=== PATIENT | female | born 1935 | race Caucasian/White ===

== ENCOUNTER 2020-06-18 14:53 | Emergency (ER) | payer MEDICARE, SELFPAY ==
--- NOTE | ~2020-06-18 | XR_ITS ---
XR chest 2V DATE: 06/18/2020 17:03 INDICATION: Shortness of breath. History of asthma. Hypertension. TECHNIQUE: PA and lateral views COMPARISON: 08/14/2019 PA and lateral chest FINDINGS: Normal heart size. Aortic calcification, ectasia and unfolding. No hilar or mediastinal enlargement. Moderate bilateral hyperinflation. No pulmonary infiltrate or consolidation, pleural effusion or pulm onary vascular congestion or pneumothorax is detected. 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 Right glenohumeral joint replacement. Prominent osteopenia. Dextroscoliosis and degenerative change of the thoracic spine. 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 TUTOR
[2020-06-18 15:20] VITALS: BP 121/54; PULSE 90; RESP 16; TEMP 36.9; O2SAT 97
--- NOTE | 2020-06-18 15:29 | ECG_ITS ---
Measurements Intervals [place] Rate: 73 P: -14 MS: 144 QRS: -13 QRSD: 79 T: 16 QT: 377 QTc: 416 Interpretive Statements SINUS RHYTHM VENTRICULAR PREMATURE COMPLEXES VOLTAGE CRITERIA FOR LVH BORDERLINE ST ABNORMALITY- ANTEROLATERAL LEADS BORDERLINE ECG Electronically Signed On 06-18-2020 17:17:40 SWIMMING PROFESSOR by Ravinder Ortiz D.O.
[2020-06-18 15:54] LABS: Basophils Percent Auto 0.4 % (0.2-1.2); Eosinophils Absolute Auto 0.2 K/mm3 (0-0.3); Eosinophils Percent Auto 1.5 % (0-4.4); Hematocrit 43.3 % (37.0-47.0); Hemoglobin 14.1 g/dL (12.0-15.0); Immature Granulocyte Absolute 0.04 K/mm3 (0.00-0.031); Immature Granulocyte Percent A 0.4 % (0-0.5); Lymphocytes Absolute Auto 1.27 K/mm3 (0.9-3.2); Lymphocytes Percent Auto 12.3 % (18.3-44.2); Mean Corpuscular HGB Conc 32.6 g/dl (32-36); Mean Corpuscular Hemoglobin 29.6 pg (26-34); Mean Platelet Volume 11.1 fl (7.4-10.4); Monocytes Absolute Auto 0.6 K/mm3 (0.1-0.6); Monocytes Percent Auto 5.7 % (2.6-8.5); Neutrophils Absolute Auto 8.2 K/mm3 (1.3-6.7); Neutrophils Percent Auto 79.7 % (45.5-73.1); Platelet Count Result 215 k/mm3 (150-375); Red Blood Count 4.76 M/mm3 (4.2-5.4); Red Cell Distribution Width 13.1 % (11.5-14.5); White Blood Count 10.3 K/mm3 (4.5-10.0)
[2020-06-18 16:05] LABS: Anion Gap 6 mmol/L (8-16); Blood Urea Nitrogen 19 mg/dL (7-17); Calcium 8.9 mg/dL (8.4-10.2); Carbon Dioxide 30 mmol/L (22-30); Chloride 104 mmol/L (98-107); Estimated CRCL calculation 46 ml/min; Estimated Glomerular Filt Rate > 60; Glucose 125 mg/dL (65-105); Potassium 3.7 mmol/L (3.4-5.0); Sodium 140 mmol/L (137-145)
[2020-06-18 19:50] VITALS: BP 139/66; PULSE 72; RESP 14; O2SAT 99
[2020-06-18 19:56] VITALS: PULSE 63
--- NOTE | 2020-06-18 19:56 | ED.URI ---
HPI - URI/Sore Throat General Chief Complaint: Shortness of Breath/Dyspnea Stated Complaint: TX FOR PNEUMONIA, COUGH, CONGESTION Time Seen by Provider: 06/18/20 19:45 Source: patient Mode of arrival: ambulatory Limitations: no limitations History of Present Illness HPI Narrative: Patient is an 85-year-old female complaining of cough, productive, yellowish sputum started last month after being diagnosed with pneumonia approximately a month ago. Patient also complaining of shortness of breath but states that it is nothing new she has had it years . Patient also complaining of left chest wall pain, intermittent, worse with palpation, had it for years I have seen Dr. House and told me that my heart was ok . Patient denies any fever, abdominal pain, nausea vomiting or diarrhea. Related Data Home Medications Medication Instructions Recorded Confirmed aspirin 81 mg tablet,delayed 81 mg PO DAILY 07/10/19 03/25/20 release flaxseed oil 1,000 mg capsule 1,000 mg PO DAILY 07/10/19 03/25/20 rosuvastatin 5 mg tablet 5 mg PO DAILY 07/10/19 03/25/20 alendronate PO 03/25/20 03/25/20 azelastine NASAL 03/25/20 03/25/20 cholecalciferol (vitamin D3) 50 50 mcg PO DAILY 03/25/20 03/25/20 mcg (2,000 unit) capsule Allergies Allergy/AdvReac Type Severity Reaction Status Date / Time acetaminophen Allergy Unknown rash Verified 06/18/20 19:57 adhesive Allergy Unknown unknown Verified 06/18/20 19:57 alendronate sodium Allergy Unknown unknown Verified 06/18/20 19:57 amitriptyline Allergy Unknown unknown Verified 06/18/20 19:57 bupropion Allergy Unknown unknown Verified 06/18/20 19:57 chlordiazepoxide Allergy Unknown unknown Verified 06/18/20 19:57 diazepam Allergy Unknown unknown Verified 06/18/20 19:57 diphenhydramine Allergy Unknown unknown Verified 06/18/20 19:57 flurbiprofen Allergy Unknown unknown Verified 06/18/20 19:57 hydrocodone Allergy Unknown unknown Verified 06/18/20 19:57 ibuprofen Allergy Unknown unknown Verified 06/18/20 19:57 lansoprazole Allergy Unknown unknown Verified 06/18/20 19:57 lorazepam Allergy Unknown unknown Verified 06/18/20 19:57 methotrexate Allergy Unknown unknown Verified 06/18/20 19:57 morphine Allergy Unknown unknown Verified 06/18/20 19:57 nizatidine Allergy Unknown unknown Verified 06/18/20 19:57 NSAIDS (Non-Steroidal Allergy Unknown unknown Verified 06/18/20 19:57 Anti-Inflamma Penicillins Allergy Unknown unknown Verified 06/18/20 19:57 perphenazine Allergy Unknown unknown Verified 06/18/20 19:57 propoxyphene Allergy Unknown unknown Verified 06/18/20 19:57 ranitidine Allergy Unknown unknown Verified 06/18/20 19:57 Sulfa (Sulfonamide Allergy Unknown unknown Verified 06/18/20 19:57 Antibiotics) tamoxifen Allergy Unknown unknown Verified 06/18/20 19:57 tetracycline Allergy Unknown unknown Verified 06/18/20 19:57 Tetracyclines Allergy Unknown unknown Verified 06/18/20 19:57 tizanidine Allergy Unknown unknown Verified 06/18/20 19:57 tramadol Allergy Unknown unknown Verified 06/18/20 19:57 adhesive tape AdvReac Unknown TAPE/ Verified 06/18/20 19:57 BANDAIDS Review of Systems Review of Systems: All systems reviewed & are unremarkable except as noted in HPI and below Constitutional: Constitutional: Denies body ache(s), Denies chills, Denies excessive sweating, Denies fatigue, Denies fever(s), Denies headache(s), Denies lethargy, Denies malaise, Denies weakness and Denies weight loss Eyes: Eyes: Denies blurry vision, Denies change in vision and Denies loss of vision ENT: Denies dizziness, Denies ear discharge, Denies headache(s), Denies lip swelling, Denies epistaxis, Denies nasal congestion, Denies neck pain, Denies throat swelling and Denies tongue swelling Cardiovascular: Cardiovascular: Denies chest pain with activity, Denies diaphoresis, Denies rapid heart rate, Denies edema, Denies irregular heart rhythm, Denies lightheadedness and Denies palpitations Respiratory: Respiratory: Denies chest con
[2020-06-18 20:48] VITALS: BP 107/71; PULSE 68; RESP 22; O2SAT 96
[2020-06-18 20:59] LABS: NT Pro B Type Natriuretic Pept 198 PG/ML (5-100); Troponin I < 0.012 ng/mL (0.000-0.034)
[2020-06-18 22:03] VITALS: BP 123/91; PULSE 68; RESP 16; TEMP 36.5; O2SAT 100
== END 2020-06-18 22:05 ==
PROVIDERS: Emergency Medicine; Emergency Provider Emergency Medicine; PCP Emergency Medicine
DX: J40 Bronchitis, not specified as acute or chronic (principal); M19.90 Unspecified osteoarthritis, unspecified site; F32.9 Major depressive disorder, single episode, unspecified; J43.9 Emphysema, unspecified; E78.5 Hyperlipidemia, unspecified; I10 Essential (primary) hypertension
CPT/HCPCS: 36415; 71046; 80048; 83880; 84484; 85025; 93005; 99284

== ENCOUNTER 2021-02-17 10:07 | Outpatient (CLI) | payer MEDICARE, SELFPAY ==
--- NOTE | ~2021-02-17 | CT_ITS ---
EXAMINATION: CT diagnostic chest wo con EXAM DATE: 02/17/2021 10:33 INDICATION: J84.9 - Interstitial pulmonary disease, unspecified. TECHNIQUE: Spiral CT of the chest without contrast. Axial, coronal and sagittal images of the chest were reviewed. Coronal maximum intensity pixel images of chest reviewed. The dose-length product ( DLP) for this examination was 191.45 mGy-cm. The exposure was tailored according to patient size (au to mA exposure control), and iterative reconstruction (ASIR) was used as additional dose reduction te chnique. Comparison is made to prior examination from 06/17/2017. FINDINGS: Some scattered small opacities, postinfectious residua. Mild peripheral interlobular septa l thickening, consistent with Nonspecific Interstitial Pneumonitis Pattern (NSIP) interstitial lung d isease with many possible underlying etiologies including collagen vascular disease, medications/drug s, prior viral infection (COVID-19), hypersensitivity pneumonitis, idiopathic etiologies. Probably sl ight progression in this compared to 2017. Mild emphysema and hyperinflation. There are no pleural or pericardial effusions. Tracheobronchial tree is patent. Surgical changes from left mastoidectomy. There is no mediastinal, hilar or axillary lymphadenopathy. There is no pneumothorax. Heart normal in size. There are dense coronary arter ies, could be severe coronary arterial sclerosis and/or coronary artery stent(s), which are difficult to distinguish due to cardiac motion on this non-gated exam. Pneumobilia unchanged, common finding post cholecystectomy. There is moderate thoracic spondylosis without osteoblastic or osteolytic lesi ons identified. IMPRESSION: 1. Mild NSIP pattern interstitial lung disease. 2. Mild emphysema and hyperinflation. 3. Chronic pneumobilia. Reviewed, dictated and finalized at location A.
== END 2021-02-17 10:08 | disposition home or self-care (01) ==
PROVIDERS: PCP Emergency Medicine; Visit Provider Nurse Practitioner Family
DX: J84.9 Interstitial pulmonary disease, unspecified (principal); J43.9 Emphysema, unspecified; R91.8 Other nonspecific abnormal finding of lung field; K83.9 Disease of biliary tract, unspecified
CPT/HCPCS: 71250

== ENCOUNTER 2021-04-16 10:35 | Outpatient (NON) | payer MEDICARE, SELFPAY | END 2021-04-16 10:36 | disposition home or self-care (01) | LOC: ANHLAB 10:38 | PROVIDERS: PCP Emergency Medicine; Visit Provider Nurse Practitioner Family | DX: R09.3 Abnormal sputum (principal) | CPT/HCPCS: 87070; 87205 ==

== ENCOUNTER 2021-04-29 13:08 | Outpatient (NON) | payer MEDICARE, SELFPAY | END 2021-04-29 13:09 | disposition home or self-care (01) | LOC: ANHLAB 13:10 | PROVIDERS: PCP Emergency Medicine; Visit Provider Nurse Practitioner Family | DX: R09.3 Abnormal sputum (principal) | CPT/HCPCS: 87070; 87205 ==

== ENCOUNTER 2022-06-19 13:07 | Emergency (ER) | payer MEDICARE, SELFPAY ==
--- NOTE | ~2022-06-19 | CT_ITS ---
EXAMINATION: CT brain wo con INDICATION: Head injury COMPARISON: None TECHNIQUE: Standard unenhanced head CT. The dose-length product (DLP) was 605.33 mGy-cm. The mA was a djusted according to patient size. Iterative reconstruction technique was employed. FINDINGS: There is no acute intraparenchymal hemorrhage. No evidence of mass lesion. No evidence of a cute infarction. There is mild periventricular and subcortical hypodensity probably related to small vessel ischemic disease. There is mild prominence of the sulci and ventricles related to cerebral atr ophy. Intracranial calcified cerebral atherosclerosis is noted. There are no extra-axial collections. There is no mass effect or midline shift. Changes in the globes are likely from ocular lens surgery. There is mild mucosal thickening of the paranasal sinuses. IMPRESSION: 1. No acute intracranial abnormality. 2. Age related findings. Reviewed, dictated and finalized at location A. SITIONS MANAGER
--- NOTE | ~2022-06-19 | XR_ITS ---
EXAMINATION: XR chest 2V DATE: 06/19/2022 14:10 INDICATION: Confusion and dizziness TECHNIQUE: AP and lateral views of the chest are obtained. COMPARISON: 06/18/2020 FINDINGS: There are patchy bilateral airspace opacities of the lungs. The heart size is normal for te chnique. No pleural effusion or pneumothorax. Changes of right shoulder arthroplasty are noted. There is severe thoracic spondylosis. There are surgical clips in the right axilla. Advanced osteoarthriti s is noted in the left glenohumeral joint. IMPRESSION: 1. Diffuse lung disease which could reflect atelectasis versus pulmonary edema versus pneumonia. Reviewed, dictated and finalized at location A. TY FELONY CLERK
--- NOTE | ~2022-06-19 | CT_ITS ---
EXAMINATION: CT cervical spine wo con DATE: 06/19/2022 14:03 INDICATION: Head injury TECHNIQUE: Computed tomography (CT) of the cervical spine was performed without intravenous contrast. The dose-length product (DLP) was 276.06 mGy-cm. Automated exposure control and iterative reconstruc tion technique were employed. COMPARISON: None FINDINGS: There are 2 mm of anterolisthesis of C2 on C3 and C3 on C4. The vertebral body heights are maintained. There is severe loss of intervertebral disc space height from C3-4 through C7-T1. Small d egenerative osteophytes project from the anterior endplates of multiple vertebral bodies. The odontoi d is intact. There is multilevel severe facet and uncovertebral joint osteoarthritis. Changes of righ t shoulder arthroplasty are noted. IMPRESSION: 1. Severe cervical spondylosis without acute findings. Reviewed, dictated and finalized at location A. H POLISHER
[2022-06-19 13:08] VITALS: BP 109/86; PULSE 68; RESP 19; TEMP 37.1; O2SAT 99
--- NOTE | 2022-06-19 13:10 | ECG_ITS ---
Measurements Intervals [place] Rate: 62 P: -1 CO: 174 QRS: -13 QRSD: 81 T: 7 QT: 402 QTc: 409 Interpretive Statements SINUS RHYTHM DELAYED PRECORDIAL R/S TRANSITION LEFT VENTRICULAR HYPERTROPHY BORDERLINE T WAVE ABNORMALITY- ANT/INF LEADS BASELINE WANDER- V3 BORDERLINE ECG COMPARED TO ECG 06/18/2020 15:48:24 NO SIGNIFICANT CHANGES Electronically Signed On 06-19-2022 15:01:29 LABORER SALVAGE by Ravinder Ortiz D.O.
--- NOTE | 2022-06-19 13:34 | ED.FALL ---
HPI - Fall General Chief Complaint: Fall Stated Complaint: increase confusion since glf 2030 last night Source: patient, EMS, RN notes reviewed and old records reviewed Mode of arrival: EMS Limitations: no limitations History of Present Illness HPI Narrative: THis is an 87 year old female who presents for nursing facility for evaluation of confusion and fall. Patient states she was walking with her walker to her room and she fell. She hit back of her head but denies LOC. She was told that she had bruising to the back of her head. Staff reports this morning she did not seem sharp so they sent her here for evaluation. EMS reports patient able to state name, month, president, date and place. She does not have any complaints for EMS. She states she has issues with chronic neck pain but denies neck pain today. She reports having rib pain yesterday . She denies any pain today. She denies dizziness, nausea, vomiting or weakness. She also denies chest pain or sob. Related Data Home Medications Medication Instructions Recorded Confirmed aspirin 81 mg tablet,delayed 81 mg PO DAILY 07/10/19 07/15/21 release rosuvastatin 5 mg tablet 5 mg PO DAILY 07/10/19 07/15/21 cholecalciferol (vitamin D3) 50 50 mcg PO DAILY 03/25/20 07/15/21 mcg (2,000 unit) capsule azelastine 137 mcg (0.1 %) nasal See Rx Instructions .Route .COMPLEX 11/10/21 spray aerosol vit C 250 mg-vit E 90 mg-zinc 40 1 tablet PO .once daily 11/10/21 mg-copper 1 [id number] capsule (PreserVision AREDS-2) budesonide-formoterol HFA 80 See Rx Instructions .Route .COMPLEX 11/11/21 mcg-4.5 mcg/actuation aerosol inhaler (Symbicort) dicyclomine 10 mg capsule See Rx Instructions .Route .COMPLEX 11/11/21 eszopiclone 2 mg tablet (Lunesta) 2 mg PO QHS 11/11/21 fluticasone propionate 50 1 spray intranasal BID 11/11/21 mcg/actuation nasal spray,suspension (Flonase Allergy Relief) mometasone-formoterol HFA 200 See Rx Instructions .Route .COMPLEX 11/11/21 mcg-5 mcg/actuation aerosol inhaler tamsulosin 0.4 mg capsule 0.4 mg PO DAILY 11/11/21 tramadol 50 mg tablet See Rx Instructions .Route .COMPLEX 11/11/21 Allergies Allergy/AdvReac Type Severity Reaction Status Date / Time adhesive tape Allergy Intermediate Rash Verified 06/19/22 13:14 alendronate sodium Allergy Unknown unknown Verified 06/19/22 13:14 amitriptyline Allergy Unknown unknown Verified 06/19/22 13:14 chlordiazepoxide Allergy Unknown unknown Verified 06/19/22 13:14 diazepam Allergy Unknown unknown Verified 06/19/22 13:14 diphenhydramine Allergy Unknown unknown Verified 06/19/22 13:14 flurbiprofen Allergy Unknown unknown Verified 06/19/22 13:14 hydrocodone Allergy Unknown unknown Verified 06/19/22 13:14 ibuprofen Allergy Unknown unknown Verified 06/19/22 13:14 lansoprazole Allergy Unknown unknown Verified 06/19/22 13:14 lorazepam Allergy Unknown unknown Verified 06/19/22 13:14 methotrexate Allergy Unknown unknown Verified 06/19/22 13:14 morphine Allergy Unknown unknown Verified 06/19/22 13:14 nizatidine Allergy Unknown unknown Verified 06/19/22 13:14 NSAIDS (Non-Steroidal Allergy Unknown unknown Verified 06/19/22 13:14 Anti-Inflamma Penicillins Allergy Unknown unknown Verified 06/19/22 13:14 perphenazine Allergy Unknown unknown Verified 06/19/22 13:14 propoxyphene Allergy Unknown unknown Verified 06/19/22 13:14 ranitidine Allergy Unknown unknown Verified 06/19/22 13:14 Sulfa (Sulfonamide Allergy Unknown unknown Verified 06/19/22 13:14 Antibiotics) tamoxifen Allergy Unknown unknown Verified 06/19/22 13:14 tetracycline Allergy Unknown unknown Verified 06/19/22 13:14 Tetracyclines Allergy Unknown unknown Verified 06/19/22 13:14 tizanidine Allergy Unknown unknown Verified 06/19/22 13:14 Review of Systems Review of Systems: CONSTITUTIONAL: Denies fever, chills, or sweats. EYES: Denies visual changes, redness, or discharge. ENT: Denies rhinorrhea, congestion, sore throat, or
[2022-06-19 14:31] LABS: Basophils Absolute Auto 0.1 K/mm3 (0.0-0.1); Basophils Percent Auto 0.6 % (0.2-1.2); Eosinophils Absolute Auto 0.2 K/mm3 (0-0.3); Eosinophils Percent Auto 2.7 % (0-4.4); Hematocrit 38.2 % (37.0-47.0); Hemoglobin 12.3 g/dL (12.0-15.0); Immature Granulocyte Absolute 0.04 K/mm3 (0.00-0.031); Immature Granulocyte Percent A 0.4 % (0-0.5); Lymphocytes Absolute Auto 1.79 K/mm3 (0.9-3.2); Lymphocytes Percent Auto 19.8 % (18.3-44.2); Mean Corpuscular HGB Conc 32.2 g/dl (32-36); Mean Corpuscular Hemoglobin 27.7 pg (26-34); Mean Platelet Volume 10.8 fl (7.4-10.4); Monocytes Absolute Auto 0.8 K/mm3 (0.1-0.6); Monocytes Percent Auto 9.3 % (2.6-8.5); Neutrophils Absolute Auto 6.1 K/mm3 (1.3-6.7); Neutrophils Percent Auto 67.2 % (45.5-73.1); Platelet Count Result 231 k/mm3 (150-375); Red Blood Count 4.44 M/mm3 (4.2-5.4); Red Cell Distribution Width 12.9 % (11.5-14.5); White Blood Count 9.1 K/mm3 (4.5-10.0)
[2022-06-19 14:42] LABS: Alanine Aminotransferase 20 U/L (6-35); Albumin Level 4.3 g/dL (3.5-5.1); Alkaline Phosphatase 64 U/L (38-126); Anion Gap 14 mmol/L (8-16); Aspartate Amino Transferase 30 U/L (14-36); Bilirubin,Total 0.4 mg/dL (0.2-1.3); Blood Urea Nitrogen 16 mg/dL (7-17); Calcium 8.8 mg/dL (8.4-10.2); Carbon Dioxide 27 mmol/L (22-30); Chloride 101 mmol/L (98-107); Estimated CRCL calculation 39 ml/min; Estimated Glomerular Filt Rate > 60; Glucose 114 mg/dL (65-110); INR 1.1; Prothrombin Time 13.8 Seconds (11.1-14.7); Sodium 142 mmol/L (137-145)
[2022-06-19 14:43] LABS: Partial Thromboplastin Time 37.7 SECONDS (22.3-36.8)
[2022-06-19 15:10] LABS: NT Pro B Type Natriuretic Pept 470 pg/mL (5-100)
[2022-06-19 15:32] LABS: Appearance Urine Clear (Clear); Bilirubin Urine Negative (Negative); Blood Urine Trace-intact (Negative); Color Urine Yellow (Yellow); Glucose Urine UA Negative (Negative); Ketones Urine Negative (Negative); Leukocyte Esterase Ur Trace LEU/UL (Negative); Nitrate Urine Negative (Negative); Protein Urine Negative (Negative); Specific Grav Ur 1.015 (1.001-1.035); Urobilinogen Urine 0.2 mg/dL (<2.0)
[2022-06-19 15:34] LABS: Add Urine Microscopic? YES; Bacteria Urine 3+ /hpf; Mucus Urine Rare /lpf
[2022-06-19 15:38] LABS: Influenza A QL RT-PCR Negative (Negative); Influenza B QL RT-PCR Negative (Negative); SARS-CoV-2 RNA PCR Negative
--- NOTE | 2022-06-19 16:41 | PC.NURSE ---
Per EDP Dr. Monterroso request, pt ambulated with walker with minimal assist to get in and out of bed. Steady gait and pace with walking and walker.
== END 2022-06-19 17:39 ==
PROVIDERS: Emergency Provider General Practice; PCP Nurse Practitioner Family
DX: S09.90XA Unspecified injury of head, initial encounter (principal); R07.81 Pleurodynia; E78.5 Hyperlipidemia, unspecified; K86.1 Other chronic pancreatitis; I10 Essential (primary) hypertension; J43.9 Emphysema, unspecified; I25.10 Atherosclerotic heart disease of native coronary artery without angina pectoris; Z79.899 Other long term (current) drug therapy; Z79.82 Long term (current) use of aspirin; Z20.822 Contact with and (suspected) exposure to COVID-19; W18.39XA Other fall on same level, initial encounter; Y92.129 Unspecified place in nursing home as the place of occurrence of the external cause
CPT/HCPCS: 36415; 51701; 70450; 71046; 72125; 80053; 81001; 83880; 85025; 85610; 85730; 87636; 93005; 99284

== ENCOUNTER 2022-06-29 12:47 | Emergency (ER) | payer MEDICARE, SELFPAY ==
--- NOTE | ~2022-06-29 | XR_ITS ---
EXAMINATION: XR forearm RT 2V, XR wrist RT min 3V DATE: 06/29/2022 13:17 INDICATION: Right wrist pain and limited range of motion post fall TECHNIQUE: 1. Posteroanterior, ulnar deviation, oblique, and lateral views of the right wrist were obtained. 2. Anteroposterior and lateral views of the right forearm were obtained. COMPARISON: none FINDINGS: Diffuse osteopenia. Nondisplaced, mildly comminuted fracture of the distal right radial metaphysis wi th buckling of the radial sided cortex and mild fragmentation along the dorsal cortex. There is 9 deg hali dorsal tilt of the distal articular surface. No evident fracture gap or incongruity at the artic ular surface to suggest intra-articular extension. Small nondisplaced fracture extending across the u lnar styloid process. No other fractures identified. Normal alignment at the right elbow with mild os teoarthritis but no joint effusion. Moderate osteoarthritis at the triscaphe joint and mild osteoarth ritis at the first carpometacarpal and multiple metacarpophalangeal and interphalangeal joints. Soft tissue swelling about the wrist and forearm. IMPRESSION: 1. Nondisplaced metaphyseal fracture of the distal right radius without evident intra-articular exten olinda and with 9 degrees dorsal tilt of the distal articular surface. 2. Nondisplaced ulnar styloid fracture. Reviewed, dictated and finalized at location A. EATIONAL SPORTS DIRECTOR IMPRESSION: 1. Nondisplaced metaphyseal fracture of the distal right radius without evident intra-articular extension and with 9 degrees dorsal tilt of the distal articul ar surface. 2. Nondisplaced ulnar styloid fracture.
--- NOTE | 2022-06-29 12:50 | ED.UPPEXIN ---
HPI - Extremity Injury (Upper) General Chief Complaint: Extremity Injury, Upper Stated Complaint: FALL/INJURED R WRIST Time Seen by Provider: 06/29/22 13:06 Source: patient, RN notes reviewed and old records reviewed Mode of arrival: ambulatory Limitations: no limitations History of Present Illness HPI narrative: 87-year-old female presents to the [facility] with right wrist pain after falling last night. Patient reports that she tripped and fell. Landing on her arm and hitting the back of her head. No loss of consciousness. No blurry vision or change in vision. The same thing occurred 10 days ago. Son is not wanting to take her to the emergency room. Patient is wheelchair bound and lives in assisted living Patient bruising swelling to the right forearm and wrist. MD complaint: injury to: right and forearm Related Data Home Medications Medication Instructions Recorded Confirmed aspirin 81 mg tablet,delayed 81 mg PO DAILY 07/10/19 06/29/22 release rosuvastatin 5 mg tablet 5 mg PO DAILY 07/10/19 06/29/22 cholecalciferol (vitamin D3) 50 50 mcg PO DAILY 03/25/20 06/29/22 mcg (2,000 unit) capsule azelastine 137 mcg (0.1 %) nasal See Rx Instructions .Route .COMPLEX 11/10/21 06/29/22 spray aerosol vit C 250 mg-vit E 90 mg-zinc 40 1 tablet PO .once daily 11/10/21 06/29/22 mg-copper 1 [id number]-lrllav-qicdxo capsule (PreserVision AREDS-2) budesonide-formoterol HFA 80 See Rx Instructions .Route .COMPLEX 11/11/21 06/29/22 mcg-4.5 mcg/actuation aerosol inhaler (Symbicort) dicyclomine 10 mg capsule See Rx Instructions .Route .COMPLEX 11/11/21 06/29/22 eszopiclone 2 mg tablet (Lunesta) 2 mg PO QHS 11/11/21 06/29/22 mometasone-formoterol HFA 200 See Rx Instructions .Route .COMPLEX 11/11/21 06/29/22 mcg-5 mcg/actuation aerosol inhaler tramadol 50 mg tablet See Rx Instructions .Route .COMPLEX 11/11/21 06/29/22 Allergies Allergy/AdvReac Type Severity Reaction Status Date / Time adhesive tape Allergy Intermediate Rash Verified 06/19/22 13:14 alendronate sodium Allergy Unknown unknown Verified 06/19/22 13:14 amitriptyline Allergy Unknown unknown Verified 06/19/22 13:14 chlordiazepoxide Allergy Unknown unknown Verified 06/19/22 13:14 diazepam Allergy Unknown unknown Verified 06/19/22 13:14 diphenhydramine Allergy Unknown unknown Verified 06/19/22 13:14 flurbiprofen Allergy Unknown unknown Verified 06/19/22 13:14 hydrocodone Allergy Unknown unknown Verified 06/19/22 13:14 ibuprofen Allergy Unknown unknown Verified 06/19/22 13:14 lansoprazole Allergy Unknown unknown Verified 06/19/22 13:14 lorazepam Allergy Unknown unknown Verified 06/19/22 13:14 methotrexate Allergy Unknown unknown Verified 06/19/22 13:14 morphine Allergy Unknown unknown Verified 06/19/22 13:14 nizatidine Allergy Unknown unknown Verified 06/19/22 13:14 NSAIDS (Non-Steroidal Allergy Unknown unknown Verified 06/19/22 13:14 Anti-Inflamma Penicillins Allergy Unknown unknown Verified 06/19/22 13:14 perphenazine Allergy Unknown unknown Verified 06/19/22 13:14 propoxyphene Allergy Unknown unknown Verified 06/19/22 13:14 ranitidine Allergy Unknown unknown Verified 06/19/22 13:14 Sulfa (Sulfonamide Allergy Unknown unknown Verified 06/19/22 13:14 Antibiotics) tamoxifen Allergy Unknown unknown Verified 06/19/22 13:14 tetracycline Allergy Unknown unknown Verified 06/19/22 13:14 Tetracyclines Allergy Unknown unknown Verified 06/19/22 13:14 tizanidine Allergy Unknown unknown Verified 06/19/22 13:14 Review of Systems Review of Systems: All systems reviewed & are unremarkable except as noted in HPI and below Constitutional: Constitutional: Reports no additional constitutional complaints, Denies chills and Denies fever(s) Eyes: Eyes: Reports no additional eye complaints ENT: Reports system reviewed and no additional complaints, except as documented Cardiovascular: Cardiovascular: Reports no additional cardiovascular complaints Respiratory: Respiratory: Re
[2022-06-29 13:19] VITALS: BP 94/75; PULSE 72; RESP 16; TEMP 37.1; O2SAT 97
== END 2022-06-29 14:30 | disposition home or self-care (01) ==
PROVIDERS: Emergency Provider Nurse Practitioner; PCP Nurse Practitioner Family
DX: S52.501A Unspecified fracture of the lower end of right radius, initial encounter for closed fracture (principal); S52.614A Nondisplaced fracture of right ulna styloid process, initial encounter for closed fracture; E78.5 Hyperlipidemia, unspecified; I10 Essential (primary) hypertension; J43.9 Emphysema, unspecified; Z79.82 Long term (current) use of aspirin; W01.0XXA Fall on same level from slipping, tripping and stumbling without subsequent striking against object, initial encounter
CPT/HCPCS: 29125; 73090; 73110; 99214; A4565; G0463

== ENCOUNTER 2022-08-15 13:41 | Inpatient (IN) | payer MEDICARE, SELFPAY ==
[2022-08-15] VITALS (12 sets, daily range): BP systolic 125–144; BP diastolic 44–92; PULSE 82–118; RESP 16–28; TEMP 35.7–36.9; O2SAT 95–99
--- NOTE | ~2022-08-15 | XR_ITS ---
XR chest 1V portable 08/15/2022 14:02 Indication: Cough. Pneumonia. Procedure: AP portable chest Comparison: 06/19/2022 Findings: Borderline heart size. There is bilateral airspace disease of the mid and lower lungs which may represent edema or pneumonia. There is a right shoulder arthroplasty. There is advanced osteoart hritis of the left glenohumeral joint. Impression: 1: Bilateral airspace disease of the mid and lower lungs which may represent edema or pneumonia. Reviewed, dictated and finalized at location A. OR WEB DESIGNER Impression: 1: Bilateral airspace disease of the mid and lower lungs which may represent ed ernestine or pneumonia.
--- NOTE | ~2022-08-15 | XR_ITS ---
EXAMINATION: XR chest 1V portable INDICATION: Shortness of breath TECHNIQUE: Portable AP chest at 1210 hours COMPARISON: 08/18/2022 FINDINGS: Chronic coarse subpleural reticular opacities are present. Previously described interstitia l pattern persists but has improved. The heart size is normal. No pleural effusion or pneumothorax. T here are surgical clips in the left axilla. Changes of right shoulder arthroplasty are noted. IMPRESSION: 1. Improved pulmonary edema. 2. Chronic interstitial lung disease. Reviewed, dictated and finalized at location F. ESPONDENCE ANALYST
--- NOTE | ~2022-08-15 | XR_ITS ---
EXAMINATION: XR chest 1V portable DATE: 08/18/2022 06:00 INDICATION: Pneumonia. TECHNIQUE: A single frontal view of the chest was obtained. COMPARISON: Chest single view 08/15/2022, chest CT 02/17/2021 FINDINGS: There is a diffuse coarse interstitial pattern in the lungs. No pleural effusion or pneumot horax. The heart size is normal. There is a right shoulder arthroplasty. There are surgical clips in left axilla. IMPRESSION: 1. Diffuse lung disease, consistent with chronic interstitial lung disease with superimposed pulmonar y edema versus pneumonia. Reviewed, dictated and finalized at location A. CTOR OF PATIENT SAFETY IMPRESSION: 1. Diffuse lung disease, consistent with chronic interstitial lung disease with superimposed pulmonary edema versus pneumonia.
--- NOTE | 2022-08-15 13:47 | ED.URI ---
HPI - URI/Sore Throat General Chief Complaint: Upper Respiratory Infection <Geneva Alexandre PA-C - Last Filed: 08/15/22 18:27> Stated Complaint: pneumonia <Geneva Alexandre PA-C - Last Filed: 08/15/22 18:27> Time Seen by Provider: 08/15/22 13:41 <Geneva Alexandre PA-C - Last Filed: 08/15/22 18:27> History of Present Illness HPI Narrative: Patient is an 87-year-old female with a history of COPD, on 3 L home O2, sent here from a nursing facility after she was found to have bilateral pneumonia on chest x-ray. Patient tells me she has chronic dyspnea due to COPD but over the past several days her shortness of breath has gotten worse. No increase in oxygen requirement. As part of the work-up a chest x-ray was obtained that showed bilateral pneumonia, so patient was referred here. She notes she has had a productive cough of cotto sputum. She denies any chest pain, leg swelling, fevers or chills. <Geneva Alexandre PA-C - Last Filed: 08/15/22 18:27> Related Data Home Medications: Home Medications Medication Instructions Recorded Confirmed aspirin 81 mg tablet,delayed 81 mg PO DAILY 07/10/19 07/23/22 release rosuvastatin 5 mg tablet 5 mg PO DAILY 07/10/19 07/23/22 cholecalciferol (vitamin D3) 50 50 mcg PO DAILY 03/25/20 07/23/22 mcg (2,000 unit) capsule dicyclomine 10 mg capsule See Rx Instructions .Route .COMPLEX 11/11/21 07/23/22 eszopiclone 2 mg tablet (Lunesta) 2 mg PO QHS 11/11/21 07/23/22 mometasone-formoterol HFA 200 See Rx Instructions .Route .COMPLEX 11/11/21 07/23/22 mcg-5 mcg/actuation aerosol inhaler tramadol 50 mg tablet See Rx Instructions .Route .COMPLEX 11/11/21 07/23/22 <DARRYN Davis Last Filed: 08/15/22 18:27> Allergies/Adverse Reactions: Allergies Allergy/AdvReac Type Severity Reaction Status Date / Time adhesive tape Allergy Intermediate Rash Verified 08/15/22 13:55 alendronate sodium Allergy Unknown unknown Verified 08/15/22 13:55 amitriptyline Allergy Unknown unknown Verified 08/15/22 13:55 chlordiazepoxide Allergy Unknown unknown Verified 08/15/22 13:55 diazepam Allergy Unknown unknown Verified 08/15/22 13:55 diphenhydramine Allergy Unknown unknown Verified 08/15/22 13:55 flurbiprofen Allergy Unknown unknown Verified 08/15/22 13:55 hydrocodone Allergy Unknown unknown Verified 08/15/22 13:55 ibuprofen Allergy Unknown unknown Verified 08/15/22 13:55 lansoprazole Allergy Unknown unknown Verified 08/15/22 13:55 lorazepam Allergy Unknown unknown Verified 08/15/22 13:55 methotrexate Allergy Unknown unknown Verified 08/15/22 13:55 morphine Allergy Unknown unknown Verified 08/15/22 13:55 nizatidine Allergy Unknown unknown Verified 08/15/22 13:55 NSAIDS (Non-Steroidal Allergy Unknown unknown Verified 08/15/22 13:55 Anti-Inflamma Penicillins Allergy Unknown unknown Verified 08/15/22 13:55 perphenazine Allergy Unknown unknown Verified 08/15/22 13:55 propoxyphene Allergy Unknown unknown Verified 08/15/22 13:55 ranitidine Allergy Unknown unknown Verified 08/15/22 13:55 Sulfa (Sulfonamide Allergy Unknown unknown Verified 08/15/22 13:55 Antibiotics) tamoxifen Allergy Unknown unknown Verified 08/15/22 13:55 tetracycline Allergy Unknown unknown Verified 08/15/22 13:55 Tetracyclines Allergy Unknown unknown Verified 08/15/22 13:55 tizanidine Allergy Unknown unknown Verified 08/15/22 13:55 <Geneva Alexandre PA-C - Last Filed: 08/15/22 18:27> Review of Systems Review of Systems: Gen: Denies fevers or chills Eyes: Denies eye pain or visual change ENT: Denies congestion Respiratory: Reports shortness of breath and cough CV: Denies chest pain or palpitations GI: Denies abdominal pain nausea, emesis or diarrhea denies burning, urgency, frequency or hematuria Musculoskeletal: Denies back pain or muscle pain Neuro: Denies numbness, tingling, weakness or focal weakness Skin: Denies rash Except as documented, all other syste
--- NOTE | 2022-08-15 13:55 | ECG_ITS ---
Measurements Intervals [place] Rate: 92 P: 38 [place]: 161 QRS: -25 QRSD: 90 T: 17 QT: 357 QTc: 443 Interpretive Statements SINUS RHYTHM POSSIBLE LEFT ATRIAL ENLARGEMENT LEFT VENTRICULAR HYPERTROPHY AND ST-T CHANGE BASELINE ARTIFACT- I, II, III, AVR, AVL, AVF, V1-V6 BORDERLINE ECG COMPARED TO ECG 06/19/2022 13:23:50 NO SIGNIFICANT CHANGES Electronically Signed On 08-15-2022 15:09:27 JAVA FLEX DEVELOPER by Ravinder Ortiz D.O.
[2022-08-15] MEDS: IPRATROPIUM BR 0.02% INH SOLN 0.5 MG/2.5 ML VIAL INHALATION ×2 (14:03→15:54)
[2022-08-15] MEDS: ALBUTEROL SULFATE NEB 2.5 MG/3 ML INH 5 MG INHALATION ×2 (14:03→15:54)
[2022-08-15 14:11] LABS: Basophils Absolute Auto 0.1 K/mm3 (0.0-0.1); Basophils Percent Auto 0.5 % (0.2-1.2); Eosinophils Percent Auto 0.1 % (0-4.4); Hemoglobin 11.9 g/dL (12.0-15.0); Immature Granulocyte Absolute 0.09 K/mm3 (0.00-0.031); Immature Granulocyte Percent A 0.5 % (0-0.5); Lymphocytes Absolute Auto 1.69 K/mm3 (0.9-3.2); Lymphocytes Percent Auto 8.7 % (18.3-44.2); Mean Corpuscular HGB Conc 32.2 g/dl (32-36); Mean Corpuscular Hemoglobin 27.8 pg (26-34); Mean Corpuscular Volume 86.4 fl (80-100); Mean Platelet Volume 11.7 fl (7.4-10.4); Monocytes Absolute Auto 1.6 K/mm3 (0.1-0.6); Monocytes Percent Auto 8.4 % (2.6-8.5); Neutrophils Absolute Auto 15.8 K/mm3 (1.3-6.7); Neutrophils Percent Auto 81.8 % (45.5-73.1); Platelet Count Result 240 k/mm3 (150-375); Red Blood Count 4.28 M/mm3 (4.2-5.4); Red Cell Distribution Width 13.7 % (11.5-14.5); White Blood Count 19.3 K/mm3 (4.5-10.0)
[2022-08-15 14:20] LABS: Alanine Aminotransferase 16 U/L (6-35); Albumin Level 4.1 g/dL (3.5-5.1); Alkaline Phosphatase 89 U/L (38-126); Anion Gap 8 mmol/L (8-16); Aspartate Amino Transferase 24 U/L (14-36); Bilirubin,Total 1.1 mg/dL (0.2-1.3); Blood Urea Nitrogen 14 mg/dL (7-17); Calcium 8.7 mg/dL (8.4-10.2); Carbon Dioxide 30 mmol/L (22-30); Chloride 93 mmol/L (98-107); Estimated CRCL calculation 46 ml/min; Estimated Glomerular Filt Rate > 60; Glucose 121 mg/dL (65-110); Potassium 3.3 mmol/L (3.4-5.0); Sodium 131 mmol/L (137-145)
[2022-08-15 14:36] LABS: NT Pro B Type Natriuretic Pept 554 pg/mL (5-100)
[2022-08-15] MEDS: methylPREDNISolone SOD SUCC 125 MG VIAL IV PUSH (15:25)
[2022-08-15] MEDS: SODIUM CHLORIDE 0.9% IV 1,000 ML 999 ML IV CONT (15:25)
[2022-08-15 16:17] LABS: Influenza A QL RT-PCR Negative (Negative); Influenza B QL RT-PCR Negative (Negative); SARS-CoV-2 RNA PCR Negative
--- NOTE | 2022-08-15 18:54 | ADMGEN ---
This patient, Zarina Ellsworth, was admitted to [facility] Room 306-02. Patient/family oriented to hospital policies and general routines including ID bracelet, bed and alarms, visiting hours, pain management, procedures, bathroom and other care routines, personal items, smoking policy, room service/diet, and visiting hours. Information on how to activate the Rapid Response Team has been discussed. Patient/Family are encouraged to report perceived risks to care and to ask questions if they do not understand what they are told or what they should do. Report from Guy in ER.
--- NOTE | 2022-08-15 22:16 | PM.IMHP ---
H&P: HPI History of Present Illness Date/Time: 08/15/22 22:16 Chief Complaint: Upper respiratory infection Narrative: this is a 87-year-old female patient who has history of COPD and is chronically on oxygen at 3 L per nasal cannula. The patient recently was treated with pneumonia proximally 1 month ago. The patient now has chronic dyspnea due to COPD and chronically wears oxygen at 3 L per nasal cannula now. She has had increased oxygen requirement. She had a workup chest x-ray at the facility that was read as bilateral pneumonia so the patient was referred to the emergency room here. She denied any chest pain leg pain fevers or chills. The patient was complaining of right upper back pain. The patient has a right wrist cast from a fall a few weeks ago. Her white count is noted to be 19.3. Sodium 131 and potassium 3.3. She is negative for influenza A/B and COVID. Chest x-ray was read as by lateral airspace disease at the mid and lower lung zones which could represent edema or pneumonia. The patient was given a dual nebulizer, Solu-Medrol, azithromycin, Rocephin, vancomycin, and nebulizer treatment. The patient is being admitted to observation status on the date of service of 08/15/2022 Review of Systems Review of Systems: see HPI All systems reviewed & are unremarkable except as noted in HPI and below Constitutional: Constitutional: Reports as per HPI and Reports no additional constitutional complaints Eyes: Eyes: Reports as per HPI and Reports no additional eye complaints ENT: Reports system reviewed and no additional complaints, except as documented and Reports Normal hearing present Cardiovascular: Cardiovascular: Reports no additional cardiovascular complaints Respiratory: Respiratory: Reports no additional respiratory complaints and Reports no additional respiratory complaints Gastrointestinal: Gastrointestinal: Reports as per HPI and Reports no additional gastrointestinal complaints Musculoskeletal: Musculoskeletal: Reports no additional musculoskeletal complaints Integumentary/Breasts: Skin/Breast: Reports system reviewed and no additional complaints, except as docu and Reports as per HPI Neurologic: Reports system reviewed and no additional complaints, except as documented, Reports as per HPI and Reports Normal hearing present Psychiatric: Psychiatric: Reports no additional psychiatric complaints and Reports as per HPI Endocrine: Endocrine: Reports no additional endocrine complaints Hematologic/Lymphatic: Hematologic/Lymphatic: Reports no additional hematologic/lymphatic complaints Allergic/Immunologic: Allergic/Immunologic: Reports no additional allergic/immunologic complaints [facility] Past Medical History Medical History Arthritis Asthma Chronic pancreatitis Depression Emphysema of lung Fatigue History of anesthesia complications Difficulty waking up after History of cardiac disorder History of stress test HLD (hyperlipidemia) Hypertension Hypoxia ILD (interstitial lung disease) Insomnia Osteoarthritis, shoulder Osteoporosis Pneumonia Recurrent infections Rhinitis Seasonal allergies Sleep disorder Small airways disease Stomach pain URI with cough and congestion Weight gain Surgical History Surgical History History of appendectomy History of breast surgery Lt (Mastectomy) History of cholecystectomy History of hysterectomy History of knee surgery Left History of shoulder surgery Right History of surgery of uterus Family History Family History Sibling Family history of cardiovascular disease Family history of malignant neoplasm Family history of chronic obstructive pulmonary disease Father Family history of respiratory disorder, Onset Age: 23 Mother Family history of respirat
[2022-08-15] MEDS: guaiFENesin/DEXTROMETHORPHAN 10 ML UDC PO (23:08)
[2022-08-16] VITALS (12 sets, daily range): BP systolic 114–136; BP diastolic 52–58; PULSE 77–100; RESP 16–19; TEMP 35.7–36.2; O2SAT 95–99
[2022-08-16] MEDS: guaiFENesin/DEXTROMETHORPHAN 10 ML UDC PO ×3 (05:18→22:34)
[2022-08-16 06:21] LABS: Basophils Percent Auto 0.1 % (0.2-1.2); Hematocrit 33.5 % (37.0-47.0); Hemoglobin 10.6 g/dL (12.0-15.0); Immature Granulocyte Absolute 0.09 K/mm3 (0.00-0.031); Immature Granulocyte Percent A 0.7 % (0-0.5); Lymphocytes Absolute Auto 0.69 K/mm3 (0.9-3.2); Lymphocytes Percent Auto 5.1 % (18.3-44.2); Mean Corpuscular HGB Conc 31.6 g/dl (32-36); Mean Corpuscular Hemoglobin 27.6 pg (26-34); Mean Corpuscular Volume 87.2 fl (80-100); Mean Platelet Volume 11.9 fl (7.4-10.4); Monocytes Absolute Auto 0.6 K/mm3 (0.1-0.6); Monocytes Percent Auto 4.1 % (2.6-8.5); Neutrophils Absolute Auto 12.2 K/mm3 (1.3-6.7); Platelet Count Result 221 k/mm3 (150-375); Red Blood Count 3.84 M/mm3 (4.2-5.4); Red Cell Distribution Width 13.6 % (11.5-14.5); White Blood Count 13.6 K/mm3 (4.5-10.0)
[2022-08-16 06:23] LABS: Lactic Acid Reflex 1.4 mmol/L (0.7-2.0)
[2022-08-16 06:26] LABS: Alanine Aminotransferase 17 U/L (6-35); Albumin Level 3.7 g/dL (3.5-5.1); Alkaline Phosphatase 85 U/L (38-126); Anion Gap 8 mmol/L (8-16); Aspartate Amino Transferase 22 U/L (14-36); Bilirubin,Total 0.5 mg/dL (0.2-1.3); Blood Urea Nitrogen 12 mg/dL (7-17); Calcium 8.5 mg/dL (8.4-10.2); Carbon Dioxide 26 mmol/L (22-30); Chloride 104 mmol/L (98-107); Estimated CRCL calculation 53 ml/min; Estimated Glomerular Filt Rate > 60; Glucose 173 mg/dL (65-110); Sodium 138 mmol/L (137-145)
[2022-08-16] MEDS: ALBUTEROL SULFATE NEB 2.5 MG/3 ML INH INHALATION ×3 (08:39→20:20)
[2022-08-16] MEDS: IPRATROPIUM BR 0.02% INH SOLN 0.5 MG/2.5 ML VIAL INHALATION ×3 (08:39→20:20)
[2022-08-16] MEDS: FLUTICASONE/UMECLIDIN/VILANTER 100-62.5-25 MCG ELLIPTA 1 PUFF INHALATION (08:45)
[2022-08-16] MEDS: AZELASTINE HCL NASAL 0.1% 137 MCG/SPR 30 ML BTL 1 SPRAY NASAL (08:54)
[2022-08-16] MEDS: CHOLECALCIFEROL 1,000 UNITS TABLET 2000 UNITS PO (08:54)
[2022-08-16] MEDS: predniSONE 40 MG, predniSONE 10 MG 50 MG PO (08:55)
[2022-08-16] MEDS: LIPASE/AMYLASE/PROTEASE 12,000 UNITS CAP 2 CAP BY MOUTH ×2 (08:56→12:39)
[2022-08-16] MEDS: ROSUVASTATIN 5 MG TABLET PO (08:57)
[2022-08-16] MEDS: METOPROLOL SUCCINATE EXT REL 25 MG TABCR BY MOUTH (08:57)
[2022-08-16] MEDS: ISOSORBIDE MONONITRATE 30 MG TAB.ER.24H PO (08:57)
[2022-08-16] MEDS: FUROSEMIDE 20 MG TABLET BY MOUTH (08:57)
[2022-08-16] MEDS: SERTRALINE HCL 50 MG TABLET BY MOUTH (08:58)
[2022-08-16] MEDS: PANTOPRAZOLE 40 MG TABLET PO (08:58)
[2022-08-16] MEDS: POTASSIUM CHLORIDE 20 MEQ TABLET 40 MEQ PO (08:59)
--- NOTE | 2022-08-16 14:27 | PM.IMPN ---
Progress Note: A&P Assessment and Plan (1) Pneumonia: Qualifiers: Laterality: bilateral Code(s): J18.9 - Pneumonia, unspecified organism Status: Acute Assessment and Plan: -continue with azithromycin Rocephin. -Tailor antibiotics to cultures. -sputum and blood cultures are pending -continue with nebulizer treatments. -patient does have leukocytosis. Please continue to monitor CBC daily. 08/16/2021 interval history: 87 y/o female with history of second hand smoking for 20yrs, presented with shortness of breath is found to have CAP being treated with a dual nebulizer, Solu-Medrol, azithromycin, Rocephin, and nebulizer treatment.?patient stats feels little better not as short of breath, will CPM, will follow up on blood and sputum culture. and further recommendation to follow. (2) Colles' fracture of right radius: Code(s): S52.531A - Colles' fracture of right radius, initial encounter for closed fracture Status: Acute Assessment and Plan: -The patient was seen by Dr. Zamora - patient has a cast to the right forearm. (3) ILD (interstitial lung disease): Code(s): J84.9 - Interstitial pulmonary disease, unspecified Status: Acute Assessment and Plan: -The patient is seen by solar site assessment specialist /Raheel Quintanilla - some of her inhalers are non formulary. -continue with Albuterol and Atrovent. -the patient is on oxygen at 2 L per nasal cannula at home and she has been bumped up the 3 L per nasal cannula. -the patient was given Solu-Medrol in the emergency room. Continue with burst of prednisone (4) Hypertension: Code(s): I10 - Essential (primary) hypertension Status: Acute Assessment and Plan: -Continue with metoprolol -continue with isosorbide (5) HLD (hyperlipidemia): Code(s): E78.5 - Hyperlipidemia, unspecified Status: Acute Assessment and Plan: -continue with Crestor (6) Depression: Code(s): F32.9 - Major depressive disorder, single episode, unspecified Status: Acute Assessment and Plan: continue with sertraline (7) Chronic pancreatitis: Code(s): K86.1 - Other chronic pancreatitis Status: Acute Assessment and Plan: continue with Creon Subjective Date/time seen: 08/16/22 14:27 Chief Complaint: ? Upper respiratory infection HPI-Narrative: ?this is a 87-year-old female patient who has history of COPD and is chronically on oxygen at 3 L per nasal cannula.? The patient recently was treated with pneumonia proximally 1 month ago.? The patient now has chronic dyspnea due to COPD and chronically wears oxygen at 3 L per nasal cannula now.? She has had increased oxygen requirement.? She had a workup chest x-ray at the facility that was read as bilateral pneumonia so the patient was referred to the emergency room here.? She denied any chest pain leg pain fevers or chills.? The patient was complaining of right upper back pain.? The patient has a right wrist cast from a fall a few weeks ago.? Her white count is noted to be 19.3.? Sodium 131 and potassium 3.3.? She is negative for influenza A/B and COVID.? Chest x-ray was read as by lateral airspace disease at the mid and lower lung zones which could represent edema or pneumonia.? The patient was given a dual nebulizer, Solu-Medrol, azithromycin, Rocephin, vancomycin, and nebulizer treatment.? The patient is being admitted to observation status on the date of service of ?08/15/2022. 08/16/2021 interval history: 87 y/o female with history of second hand smoking for 20yrs, presented with shortness of breath is found to have CAP being treated with a dual nebulizer, Solu-Medrol, azithromycin, Rocephin, and nebulizer treatment.?patient stats feels little better not as short of breath, will CPM, will follow up on blood and sputum culture. and further recommendation to follow. Review of Systems Review of Systems: see HPI All system
[2022-08-16] MEDS: traMADol HCL (*CRX) 50 MG TABLET BY MOUTH (22:39)
[2022-08-17] VITALS (9 sets, daily range): BP systolic 121–156; BP diastolic 50–66; PULSE 71–99; RESP 16–20; TEMP 36.4–36.7; O2SAT 93–96
[2022-08-17] MEDS: ALBUTEROL SULFATE NEB 2.5 MG/3 ML INH INHALATION ×3 (02:12→15:07)
[2022-08-17] MEDS: IPRATROPIUM BR 0.02% INH SOLN 0.5 MG/2.5 ML VIAL INHALATION ×3 (02:12→15:06)
--- NOTE | 2022-08-17 02:16 | ECG_ITS ---
Measurements Intervals [place] Rate: 91 P: -14 [place]: 160 QRS: -12 QRSD: 88 T: 0 QT: 333 QTc: 411 Interpretive Statements SINUS RHYTHM LEFT VENTRICULAR HYPERTROPHY BORDERLINE R WAVE PROGRESSION, ANTERIOR LEADS BORDERLINE T WAVE ABNORMALITY- INFERIOR LEADS BORDERLINE ECG COMPARED TO ECG 08/15/2022 13:41:00 NO SIGNIFICANT CHANGES Electronically Signed On 08-17-2022 10:23:14 CLASSROOM INSTRUCTOR by Ravinder Ortiz D.O.
--- NOTE | 2022-08-17 02:25 | ECG_ITS ---
Measurements Intervals [place] Rate: 95 P: 26 [place]: 164 QRS: -10 QRSD: 95 T: 13 QT: 358 QTc: 451 Interpretive Statements SINUS RHYTHM DELAYED PRECORDIAL R/S TRANSITION LEFT VENTRICULAR HYPERTROPHY AND ST-T CHANGE BORDERLINE T WAVE ABNORMALITY- INFERIOR LEADS BASELINE ARTIFACT- I, II, III, AVR, AVL COMPARED TO ECG 08/15/2022 13:41:00 NO SIGNIFICANT CHANGES Electronically Signed On 08-20-2022 8:53:47 ASP DEVELOPER by Ravinder Ortiz D.O.
[2022-08-17] MEDS: guaiFENesin/DEXTROMETHORPHAN 10 ML UDC PO ×2 (05:32→21:28)
[2022-08-17 06:51] LABS: Hemoglobin 10.9 g/dL (12.0-15.0); Mean Corpuscular HGB Conc 31.1 g/dl (32-36); Mean Corpuscular Hemoglobin 27.7 pg (26-34); Mean Corpuscular Volume 88.8 fl (80-100); Mean Platelet Volume 11.9 fl (7.4-10.4); Platelet Count Result 268 k/mm3 (150-375); Red Blood Count 3.94 M/mm3 (4.2-5.4); Red Cell Distribution Width 13.6 % (11.5-14.5); White Blood Count 19.6 K/mm3 (4.5-10.0)
[2022-08-17 07:03] LABS: Anion Gap 8 mmol/L (8-16); Blood Urea Nitrogen 11 mg/dL (7-17); Calcium 8.5 mg/dL (8.4-10.2); Carbon Dioxide 31 mmol/L (22-30); Chloride 101 mmol/L (98-107); Estimated CRCL calculation 53 ml/min; Estimated Glomerular Filt Rate > 60; Glucose 113 mg/dL (65-110); Magnesium 2.1 mg/dL (1.6-2.3); Potassium 2.8 mmol/L (3.4-5.0); Sodium 140 mmol/L (137-145)
[2022-08-17] MEDS: POTASSIUM CHLORIDE INJ 40 MEQ in SODIUM CHLORIDE 0.9% IV 500 ML 130 MEQ IVPB (08:12)
[2022-08-17] MEDS: POTASSIUM CHLORIDE 20 MEQ TABLET 40 MEQ PO (08:14)
[2022-08-17] MEDS: AZELASTINE HCL NASAL 0.1% 137 MCG/SPR 30 ML BTL 1 SPRAY NASAL (08:15)
[2022-08-17] MEDS: SERTRALINE HCL 50 MG TABLET BY MOUTH (08:15)
[2022-08-17] MEDS: ISOSORBIDE MONONITRATE 30 MG TAB.ER.24H PO (08:15)
[2022-08-17] MEDS: CHOLECALCIFEROL 1,000 UNITS TABLET 2000 UNITS PO (08:15)
[2022-08-17] MEDS: predniSONE 40 MG, predniSONE 10 MG 50 MG PO (08:15)
[2022-08-17] MEDS: PANTOPRAZOLE 40 MG TABLET PO (08:15)
[2022-08-17] MEDS: FUROSEMIDE 20 MG TABLET BY MOUTH (08:15)
[2022-08-17] MEDS: METOPROLOL SUCCINATE EXT REL 25 MG TABCR BY MOUTH (08:16)
[2022-08-17] MEDS: ROSUVASTATIN 5 MG TABLET PO (08:16)
--- NOTE | 2022-08-17 09:17 | PCOTNOTE ---
Attempted OT evaluation, patient just began eating breakfast, will attempt at later time.
[2022-08-17] MEDS: FLUTICASONE/UMECLIDIN/VILANTER 100-62.5-25 MCG ELLIPTA 1 PUFF INHALATION (09:35)
--- NOTE | 2022-08-17 10:06 | PCOTNOTE ---
Attempted OT evaluation, patient declined at this time reporting to tired and my back hurts . RN notified of back pain.
--- NOTE | 2022-08-17 11:45 | PM.PNORT ---
Progress Note: A&P Assessment and Plan (1) Colles' fracture of right radius: Code(s): S52.531A - Colles' fracture of right radius, initial encounter for closed fracture Status: Acute Assessment and Plan: 5 weeks post right Colles fracture. Treated non-operatively with a cast for 5 weeks. Reviewed outside xrays. Healed right Colles fracture. Mild impaction and dorsal angulation of the distal radius fracture. Deformity acceptable. She had an appointment 08/16/22 for cast removal but patient was ill and admitted to the hospital. Cast removed today. Notes no numbness or tingling. Mild pain with range of motion right after cast was removed. Removable splint applied today. I recommend gentle range of motion exercises. She may start formal therapy at her facility when she returns. She may remove splint at rest, for exercise, and for hygiene. She should follow up in our office in 1 month. Subjective Subjective Date/Time Seen: 08/17/22 11:45 Interval history: 5 weeks post right Colles fracture. Treated with a cast for 5 weeks. She had an appointment 08/16/22 for cast removal but patient was ill and admitted to the hospital. Cast removed today. Notes no numbness or tingling. Mild pain with range of motion right after cast was removed. No other complaints. Review of Systems Review of Systems: All systems reviewed & are unremarkable except as noted in HPI and below Exam Narrative: Elderly 87 y/o female. Resting comfortably in bed. No acute distress. Slight expected deformity. Skin warm to the touch. No erythema or ecchymosis. No skin lesions. Cast removed. Good early range of motion. Distal neurovascularly intact. Objective Data Vital Signs Vital Signs: Vital Signs - 24 hr 08/16/22 14:02 08/16/22 14:15 08/16/22 14:00 Temperature 96.3 F L Pulse Rate 79 77 90 Respiratory Rate 18 18 18 Blood Pressure 114/52 L Pulse Oximetry 97 Oxygen Delivery Oxygen Flow Rate 08/16/22 20:24 08/16/22 20:00 08/16/22 22:00 Temperature 97.2 F L Pulse Rate 80 100 Respiratory Rate 16 19 Blood Pressure 136/58 L Pulse Oximetry 99 97 95 Oxygen Delivery Nasal Cannula Oxygen Flow Rate 2 3 08/17/22 06:00 08/17/22 08:16 08/17/22 09:33 Temperature 98 F Pulse Rate 99 90 80 Respiratory Rate 18 Blood Pressure 141/60 H Pulse Oximetry 93 Oxygen Delivery Oxygen Flow Rate 08/17/22 08:00 08/17/22 10:12 08/17/22 09:45 Temperature Pulse Rate 78 Respiratory Rate Blood Pressure Pulse Oximetry 93 Oxygen Delivery Nasal Cannula Nasal Cannula Oxygen Flow Rate 3 3 08/17/22 10:25 Temperature Pulse Rate Respiratory Rate Blood Pressure Pulse Oximetry Oxygen Delivery Nasal Cannula Oxygen Flow Rate 3 Intake/Output Intake/Output: Intake & Output 08/14/22 08/15/22 08/16/22 08/17/22 23:59 23:59 23:59 23:59 Intake Total 1300 1620 786 Output Total 400 1175 800 Balance 900 445 -14 Meds/Results Medications: Active Medications Generic Name Dose Route Start Last Admin Trade Name Freq PRN Reason Stop Dose Admin Albuterol 2.5 mg 08/16/22 08:00 08/17/22 09:35 Albuterol Sulfate Neb 2.5 Mg/3 Ml Inh INHALATION 2.5 mg Q6HRT ROBERT Administration Lipase/Protease/Amylase 2 cap 08/16/22 08:00 08/16/22 19:53 Lipase/Amylase/Protease 12,000 Units Cap BY MOUTH Not Given TIDWM ROBERT Lipase/Protease/Amylase 1 cap 08/16/22 02:38 Lipase/Amylase/Protease 12,000 Units Cap BY MOUTH TID PRN WITH A SNACK Azelastine HCl 1 spray 08/16/22 09:00 08/17/22 08:15 Azelastine Hcl Nasal 0.1% 137 Mcg/Spr 30 Ml Btl NASAL 1 spray BID ROBERT Administration Cyanocobalamin 1,000 mcg 08/16/22 09:00 Cyanocobalamin Inj 1,000 Mcg/Ml Vial SUB-Q MONTHLY ROBERT Fluticasone/Umeclidinium/Vilanterol 1 puff 08/16/22 08:00 08/17/22 09:35 Fluticasone/Umeclidin/Vilanter 100-62.5-25 Mcg Ellipta INHALATION 1 puff DAILYRT ROBERT Administration Furosemide
[2022-08-17] MEDS: LIDOCAINE 5% PATCH 3 PATCH TRANSDERM (12:01)
[2022-08-17] MEDS: LIPASE/AMYLASE/PROTEASE 12,000 UNITS CAP 2 CAP BY MOUTH (13:19)
--- NOTE | 2022-08-17 14:03 | PM.IMPN ---
Progress Note: A&P Assessment and Plan (1) Pneumonia: Qualifiers: Laterality: bilateral Code(s): J18.9 - Pneumonia, unspecified organism Status: Acute Assessment and Plan: -continue with azithromycin Rocephin. -Tailor antibiotics to cultures. -sputum and blood cultures are pending -continue with nebulizer treatments. -patient does have leukocytosis. Please continue to monitor CBC daily. 08/17/2021 interval history: 87 y/o female with history of second hand smoking for 20yrs, presented with shortness of breath is found to have CAP being treated with a dual nebulizer, Solu-Medrol, azithromycin, Rocephin, and nebulizer treatment.today ?patient stats feels better not as short of breath as when she arrived, will CPM, will follow up on blood and sputum culture so far no growth, repeat chest x-ray tomorrow and further recommendation to follow, apparently patient had a right colles fracture of the right wrist, patient was scheduled to have cost removed and was seen by Orthopedic today while in the hospital because was removed and fractures healing well, and further recommendation to follow. (2) Colles' fracture of right radius: Code(s): S52.531A - Colles' fracture of right radius, initial encounter for closed fracture Status: Acute Assessment and Plan: -The patient was seen by Dr. Zamora - patient has a cast to the right forearm. (3) ILD (interstitial lung disease): Code(s): J84.9 - Interstitial pulmonary disease, unspecified Status: Acute Assessment and Plan: -The patient is seen by corporate law specialist /Raheel Quintanilla - some of her inhalers are non formulary. -continue with Albuterol and Atrovent. -the patient is on oxygen at 2 L per nasal cannula at home and she has been bumped up the 3 L per nasal cannula. -the patient was given Solu-Medrol in the emergency room. Continue with burst of prednisone (4) Hypertension: Code(s): I10 - Essential (primary) hypertension Status: Acute Assessment and Plan: -Continue with metoprolol -continue with isosorbide (5) HLD (hyperlipidemia): Code(s): E78.5 - Hyperlipidemia, unspecified Status: Acute Assessment and Plan: -continue with Crestor (6) Depression: Code(s): F32.9 - Major depressive disorder, single episode, unspecified Status: Acute Assessment and Plan: continue with sertraline (7) Chronic pancreatitis: Code(s): K86.1 - Other chronic pancreatitis Status: Acute Assessment and Plan: continue with Creon Subjective Date/time seen: 08/17/22 14:03 08/17/2021 interval history: 87 y/o female with history of second hand smoking for 20yrs, presented with shortness of breath is found to have CAP being treated with a dual nebulizer, Solu-Medrol, azithromycin, Rocephin, and nebulizer treatment.today ?patient stats feels better not as short of breath as when she arrived, will CPM, will follow up on blood and sputum culture so far no growth, repeat chest x-ray tomorrow and further recommendation to follow, apparently patient had a right colles fracture of the right wrist, patient was scheduled to have cost removed and was seen by Orthopedic today while in the hospital because was removed and fractures healing well, and further recommendation to follow. Review of Systems Review of Systems: All systems reviewed & are unremarkable except as noted in HPI and below Exam Narrative: elderly frail Patient is comfortable, NAD HEENT: eyes are clear and none icteric LUNGS: bilateral fair air entry with harsh breath sounds and rhonchi HEART: RR S1S2 ABD: BS+, Soft and nontender Lower extremities: no edema SKIN: nonjaundiced Neuro: grossly intact. Objective Data Vital Signs Vital Signs: Vital Signs - 24 hr 08/16/22 14:15 08/16/22 20:24 08/16/22 20:00 Temperature Pulse Rate 77 80 Respiratory Rate 18 16 Blood Pre
[2022-08-17] MEDS: LIPASE/AMYLASE/PROTEASE 12,000 UNITS CAP 1 CAP BY MOUTH (21:28)
--- NOTE | 2022-08-17 23:09 | PCRCNOTE ---
past window of administration. see next available administration.
[2022-08-18] VITALS (16 sets, daily range): BP systolic 115–154; BP diastolic 53–68; PULSE 67–96; RESP 16–20; TEMP 35.9–37.1; O2SAT 94–99; BMI 33.3
[2022-08-18] MEDS: traMADol HCL (*CRX) 50 MG TABLET BY MOUTH (01:09)
[2022-08-18] MEDS: IPRATROPIUM BR 0.02% INH SOLN 0.5 MG/2.5 ML VIAL INHALATION ×4 (02:23→21:23)
[2022-08-18] MEDS: ALBUTEROL SULFATE NEB 2.5 MG/3 ML INH INHALATION ×4 (02:23→21:23)
[2022-08-18] MEDS: guaiFENesin/DEXTROMETHORPHAN 10 ML UDC PO ×3 (05:48→20:31)
[2022-08-18 06:29] LABS: Hematocrit 33.9 % (37.0-47.0); Hemoglobin 10.8 g/dL (12.0-15.0); Mean Corpuscular HGB Conc 31.9 g/dl (32-36); Mean Corpuscular Hemoglobin 27.6 pg (26-34); Mean Corpuscular Volume 86.7 fl (80-100); Mean Platelet Volume 11.7 fl (7.4-10.4); Platelet Count Result 263 k/mm3 (150-375); Red Blood Count 3.91 M/mm3 (4.2-5.4); White Blood Count 15.2 K/mm3 (4.5-10.0)
[2022-08-18 06:52] LABS: Anion Gap 6 mmol/L (8-16); Blood Urea Nitrogen 12 mg/dL (7-17); Calcium 8.5 mg/dL (8.4-10.2); Carbon Dioxide 29 mmol/L (22-30); Chloride 100 mmol/L (98-107); Estimated CRCL calculation 53 ml/min; Estimated Glomerular Filt Rate > 60; Glucose 87 mg/dL (65-110); Potassium 3.5 mmol/L (3.4-5.0); Sodium 135 mmol/L (137-145)
[2022-08-18] MEDS: LIPASE/AMYLASE/PROTEASE 12,000 UNITS CAP 2 CAP BY MOUTH ×3 (08:55→17:23)
[2022-08-18] MEDS: predniSONE 40 MG, predniSONE 10 MG 50 MG PO (08:56)
[2022-08-18] MEDS: CHOLECALCIFEROL 1,000 UNITS TABLET 2000 UNITS PO (08:56)
[2022-08-18] MEDS: AZELASTINE HCL NASAL 0.1% 137 MCG/SPR 30 ML BTL 1 SPRAY NASAL ×2 (08:56→17:23)
[2022-08-18] MEDS: LIDOCAINE 5% PATCH 3 PATCH TRANSDERM (08:57)
[2022-08-18] MEDS: ISOSORBIDE MONONITRATE 30 MG TAB.ER.24H PO (08:57)
[2022-08-18] MEDS: ROSUVASTATIN 5 MG TABLET PO (08:57)
[2022-08-18] MEDS: FUROSEMIDE 20 MG TABLET BY MOUTH (08:57)
[2022-08-18] MEDS: SERTRALINE HCL 50 MG TABLET BY MOUTH (08:58)
[2022-08-18] MEDS: PANTOPRAZOLE 40 MG TABLET PO (08:58)
[2022-08-18] MEDS: METOPROLOL SUCCINATE EXT REL 25 MG TABCR BY MOUTH (08:58)
[2022-08-18] MEDS: FLUTICASONE/UMECLIDIN/VILANTER 100-62.5-25 MCG ELLIPTA 1 PUFF INHALATION (09:35)
--- NOTE | 2022-08-18 14:55 | PM.IMPN ---
Progress Note: A&P Assessment and Plan (1) Pneumonia: Qualifiers: Laterality: bilateral Code(s): J18.9 - Pneumonia, unspecified organism Status: Acute Assessment and Plan: Chest x-ray with diffuse lung disease consistent with a that chronic interstitial lung disease with superimposed pulmonary edema versus Started on Rocephin and azithromycin Sputum and blood cultures are negative so far Leukocytosis improving History of secondhand smoking for 20 years On bronchodilators which will be continued Chest x-ray from today reviewed (2) Colles' fracture of right radius: Code(s): S52.531A - Colles' fracture of right radius, initial encounter for closed fracture Status: Acute Assessment and Plan: -The patient was seen by Dr. Zamora - patient has a cast to the right forearm. This is been removed 08/17/2022 (3) ILD (interstitial lung disease): Code(s): J84.9 - Interstitial pulmonary disease, unspecified Status: Acute Assessment and Plan: -The patient is seen by veterinary milk specialist /Raheel Quintanilla - some of her inhalers are non formulary. -continue with Albuterol and Atrovent. -the patient is on oxygen at 2 L per nasal cannula at home and she has been bumped up the 3 L per nasal cannula. -the patient was given Solu-Medrol in the emergency room. Currently on prednisone 50 mg will start tapered down 40 mg (4) Hypertension: Code(s): I10 - Essential (primary) hypertension Status: Acute Assessment and Plan: -Continue with metoprolol -continue with isosorbide (5) HLD (hyperlipidemia): Code(s): E78.5 - Hyperlipidemia, unspecified Status: Acute Assessment and Plan: -continue with Crestor (6) Depression: Code(s): F32.9 - Major depressive disorder, single episode, unspecified Status: Acute Assessment and Plan: continue with sertraline (7) Chronic pancreatitis: Code(s): K86.1 - Other chronic pancreatitis Status: Acute Assessment and Plan: continue with Creon Subjective Date/time seen: 08/18/22 14:55 Interval history: Chart reviewed. No overnight events. Feeling better. Cough is improving. Shortness of breath has improved. Denies any leg swelling. No chest pain. Her cast was removed yesterday to the Orthopedics. Review of Systems Review of Systems: All systems reviewed & are unremarkable except as noted in HPI and below Exam Narrative: elderly frail not in acute distress Patient is comfortable, NAD HEENT: eyes are clear and none icteric LUNGS: bilateral fair air entry with course breath sounds and rhonchi HEART: RR S1S2 ABD: BS+, Soft and nontender Lower extremities: no edema cyanosis or clubbing SKIN: nonjaundiced Neuro: grossly intact. Objective Data Vital Signs Vital Signs: Vital Signs - 24 hr 08/17/22 15:05 08/17/22 20:00 08/17/22 22:00 Temperature 98.1 F Pulse Rate 71 71 87 Respiratory Rate 16 16 20 Blood Pressure 156/66 H Pulse Oximetry 96 94 Oxygen Delivery Nasal Cannula Oxygen Flow Rate 3 08/18/22 02:23 08/18/22 02:27 08/18/22 02:38 Temperature Pulse Rate 77 80 81 Respiratory Rate 16 16 16 Blood Pressure Pulse Oximetry 98 Oxygen Delivery Nasal Cannula Oxygen Flow Rate 3 08/18/22 06:00 08/18/22 08:58 08/18/22 09:36 Temperature 98.7 F Pulse Rate 91 93 Respiratory Rate 19 Blood Pressure 154/68 H Pulse Oximetry 97 94 Oxygen Delivery Nasal Cannula Oxygen Flow Rate 3 08/18/22 09:36 08/18/22 09:50 08/18/22 08:55 Temperature Pulse Rate 93 96 Respiratory Rate 16 16 Blood Pressure Pulse Oximetry 94 Oxygen Delivery Nasal Cannula Oxygen Flow Rate 3 08/18/22 14:04 08/18/22 14:18 08/18/22 14:00 Temperature 96.7 F L Pulse Rate 92 84 83 Respiratory Rate 16 16 20 Blood Pressure 115/53 L Pulse Oximetry 99 Oxygen Delivery Oxygen Flow Rate Intake/Out
[2022-08-19] VITALS (19 sets, daily range): BP systolic 116–156; BP diastolic 47–62; PULSE 74–100; RESP 20–28; TEMP 36.3–36.8; O2SAT 87–98
[2022-08-19] MEDS: ALBUTEROL SULFATE NEB 2.5 MG/3 ML INH INHALATION ×4 (02:25→20:07)
[2022-08-19] MEDS: IPRATROPIUM BR 0.02% INH SOLN 0.5 MG/2.5 ML VIAL INHALATION ×4 (02:25→20:07)
[2022-08-19] MEDS: guaiFENesin/DEXTROMETHORPHAN 10 ML UDC PO ×3 (05:55→20:45)
[2022-08-19 06:18] LABS: Hematocrit 33.7 % (37.0-47.0); Hemoglobin 10.8 g/dL (12.0-15.0); Mean Corpuscular Hemoglobin 27.8 pg (26-34); Mean Corpuscular Volume 86.6 fl (80-100); Mean Platelet Volume 11.9 fl (7.4-10.4); Platelet Count Result 278 k/mm3 (150-375); Red Blood Count 3.89 M/mm3 (4.2-5.4); Red Cell Distribution Width 14.3 % (11.5-14.5); White Blood Count 14.4 K/mm3 (4.5-10.0)
[2022-08-19 06:33] LABS: Anion Gap 6 mmol/L (8-16); Blood Urea Nitrogen 14 mg/dL (7-17); Calcium 8.4 mg/dL (8.4-10.2); Carbon Dioxide 30 mmol/L (22-30); Chloride 99 mmol/L (98-107); Estimated CRCL calculation 52 ml/min; Estimated Glomerular Filt Rate > 60; Glucose 105 mg/dL (65-110); Magnesium 2.1 mg/dL (1.6-2.3); Potassium 3.2 mmol/L (3.4-5.0); Sodium 135 mmol/L (137-145)
[2022-08-19] MEDS: LIPASE/AMYLASE/PROTEASE 12,000 UNITS CAP 2 CAP BY MOUTH ×3 (08:40→18:01)
[2022-08-19] MEDS: POTASSIUM CHLORIDE 20 MEQ TABLET 40 MEQ PO (08:41)
[2022-08-19] MEDS: METOPROLOL SUCCINATE EXT REL 25 MG TABCR BY MOUTH (08:42)
[2022-08-19] MEDS: predniSONE 20 MG TABLET 40 MG PO (08:42)
[2022-08-19] MEDS: FUROSEMIDE 20 MG TABLET BY MOUTH (08:43)
[2022-08-19] MEDS: ROSUVASTATIN 5 MG TABLET PO (08:43)
[2022-08-19] MEDS: PANTOPRAZOLE 40 MG TABLET PO (08:43)
[2022-08-19] MEDS: SERTRALINE HCL 50 MG TABLET BY MOUTH (08:43)
[2022-08-19] MEDS: ISOSORBIDE MONONITRATE 30 MG TAB.ER.24H PO (08:43)
[2022-08-19] MEDS: CHOLECALCIFEROL 1,000 UNITS TABLET 2000 UNITS PO (08:44)
[2022-08-19] MEDS: AZELASTINE HCL NASAL 0.1% 137 MCG/SPR 30 ML BTL 1 SPRAY NASAL ×2 (08:44→18:01)
[2022-08-19] MEDS: LIDOCAINE 5% PATCH 3 PATCH TRANSDERM (08:44)
[2022-08-19] MEDS: FLUTICASONE/UMECLIDIN/VILANTER 100-62.5-25 MCG ELLIPTA 1 PUFF INHALATION (09:37)
--- NOTE | 2022-08-19 11:12 | PCRCNOTE ---
HOME O2 EVAL DONE. HAS HOME O2 AT 2 LITERS [facility]. HAD IT UP TO 3 L BUT NORMAL HOME SETTING IS 2 AND IS BACK TO 2L [facility]
--- NOTE | 2022-08-19 14:30 | PM.IMPN ---
Progress Note: A&P Assessment and Plan (1) Pneumonia: Qualifiers: Laterality: bilateral Code(s): J18.9 - Pneumonia, unspecified organism Status: Acute Assessment and Plan: Chest x-ray with diffuse lung disease consistent with a that chronic interstitial lung disease with superimposed pulmonary edema versus Started on Rocephin and azithromycin Sputum and blood cultures are negative so far Leukocytosis improving History of secondhand smoking for 20 years On bronchodilators which will be continued Chest x-ray from today reviewed Sputum culture positive for MRSA. Will initiate IV vancomycin As an oral option linezolid was discussed. But she is on sertraline will hold sertraline further await at least for 24 hour washout. To start linezolid oral. Need to watch for serotonin syndrome while on linezolid. (2) Colles' fracture of right radius: Code(s): S52.531A - Colles' fracture of right radius, initial encounter for closed fracture Status: Acute Assessment and Plan: -The patient was seen by Dr. Zamora - patient has a cast to the right forearm. This is been removed 08/17/2022 (3) ILD (interstitial lung disease): Code(s): J84.9 - Interstitial pulmonary disease, unspecified Status: Acute Assessment and Plan: -The patient is seen by usability specialist /Raheel Quintanilla - some of her inhalers are non formulary. -continue with Albuterol and Atrovent. -the patient is on oxygen at 2 L per nasal cannula at home and she has been bumped up the 3 L per nasal cannula. -the patient was given Solu-Medrol in the emergency room. Currently on prednisone 50 mg will start tapered down 40 mg (4) Hypertension: Code(s): I10 - Essential (primary) hypertension Status: Acute Assessment and Plan: -Continue with metoprolol -continue with isosorbide (5) HLD (hyperlipidemia): Code(s): E78.5 - Hyperlipidemia, unspecified Status: Acute Assessment and Plan: -continue with Crestor (6) Depression: Code(s): F32.9 - Major depressive disorder, single episode, unspecified Status: Acute Assessment and Plan: continue with sertraline See above will hold sertraline restart 24 hour after linezolid course would be completed (7) Chronic pancreatitis: Code(s): K86.1 - Other chronic pancreatitis Status: Acute Assessment and Plan: continue with Creon Subjective Date/time seen: 08/19/22 14:30 Interval history: No overnight events. Tongues feels sore. Still has some cough. Oxygen requirement stable. Review of Systems Review of Systems: All systems reviewed & are unremarkable except as noted in HPI and below Exam Narrative: elderly frail not in acute distress Patient is comfortable, NAD HEENT: eyes are clear and none icteric LUNGS: bilateral fair air entry with course breath sounds and rhonchi HEART: RR S1S2 ABD: BS+, Soft and nontender Lower extremities: no edema cyanosis or clubbing SKIN: nonjaundiced Neuro: grossly intact. Objective Data Vital Signs Vital Signs: Vital Signs - 24 hr 08/18/22 21:05 08/18/22 21:29 08/18/22 21:30 Temperature 98.3 F Pulse Rate 74 67 Respiratory Rate 20 20 Blood Pressure 126/65 Pulse Oximetry 96 98 Oxygen Delivery Nasal Cannula Oxygen Flow Rate 3 08/18/22 20:00 08/18/22 21:47 08/19/22 02:31 Temperature Pulse Rate 72 79 Respiratory Rate 20 20 Blood Pressure Pulse Oximetry 98 Oxygen Delivery Nasal Cannula Oxygen Flow Rate 3 08/19/22 02:48 08/19/22 05:41 08/19/22 08:42 Temperature 97.3 F L Pulse Rate 74 91 78 Respiratory Rate 20 28 H Blood Pressure 156/62 H Pulse Oximetry 95 Oxygen Delivery Oxygen Flow Rate 08/19/22 08:45 08/19/22 10:15 08/19/22 10:45 Temperature Pulse Rate 82 Respiratory Rate Blood Pressure Pulse Oximetry 97 97 87 L Oxygen Delivery Nasal Cannula Nasal Ca
[2022-08-19] MEDS: NYSTATIN 100,000 UNITS/ML SUSP 5 ML ORAL.SUSP PO ×2 (18:01→20:45)
[2022-08-20] VITALS (15 sets, daily range): BP systolic 110–159; BP diastolic 48–61; PULSE 78–93; RESP 16–23; TEMP 36.7–37.4; O2SAT 95–98
[2022-08-20] MEDS: IPRATROPIUM BR 0.02% INH SOLN 0.5 MG/2.5 ML VIAL INHALATION ×4 (02:09→21:20)
[2022-08-20] MEDS: ALBUTEROL SULFATE NEB 2.5 MG/3 ML INH INHALATION ×4 (02:09→21:20)
[2022-08-20 05:56] LABS: Hematocrit 35.4 % (37.0-47.0); Hemoglobin 11.2 g/dL (12.0-15.0); Mean Corpuscular HGB Conc 31.6 g/dl (32-36); Mean Corpuscular Hemoglobin 27.5 pg (26-34); Mean Platelet Volume 11.5 fl (7.4-10.4); Platelet Count Result 333 k/mm3 (150-375); Red Blood Count 4.07 M/mm3 (4.2-5.4); Red Cell Distribution Width 14.2 % (11.5-14.5)
[2022-08-20 06:08] LABS: Anion Gap 7 mmol/L (8-16); Blood Urea Nitrogen 12 mg/dL (7-17); Calcium 8.4 mg/dL (8.4-10.2); Carbon Dioxide 30 mmol/L (22-30); Chloride 100 mmol/L (98-107); Estimated CRCL calculation 45 ml/min; Estimated Glomerular Filt Rate > 60; Glucose 94 mg/dL (65-110); Magnesium 2.1 mg/dL (1.6-2.3); Potassium 3.4 mmol/L (3.4-5.0); Sodium 137 mmol/L (137-145)
[2022-08-20] MEDS: guaiFENesin/DEXTROMETHORPHAN 10 ML UDC PO ×3 (06:18→21:03)
[2022-08-20] MEDS: LIPASE/AMYLASE/PROTEASE 12,000 UNITS CAP 2 CAP BY MOUTH ×3 (09:32→17:20)
[2022-08-20] MEDS: FUROSEMIDE 20 MG TABLET BY MOUTH (09:33)
[2022-08-20] MEDS: ISOSORBIDE MONONITRATE 30 MG TAB.ER.24H PO (09:33)
[2022-08-20] MEDS: predniSONE 20 MG TABLET 40 MG PO (09:33)
[2022-08-20] MEDS: METOPROLOL SUCCINATE EXT REL 25 MG TABCR BY MOUTH (09:33)
[2022-08-20] MEDS: NYSTATIN 100,000 UNITS/ML SUSP 5 ML ORAL.SUSP PO ×4 (09:33→21:03)
[2022-08-20] MEDS: PANTOPRAZOLE 40 MG TABLET PO (09:33)
[2022-08-20] MEDS: CHOLECALCIFEROL 1,000 UNITS TABLET 2000 UNITS PO (09:35)
[2022-08-20] MEDS: ROSUVASTATIN 5 MG TABLET PO (09:35)
[2022-08-20] MEDS: AZELASTINE HCL NASAL 0.1% 137 MCG/SPR 30 ML BTL 1 SPRAY NASAL ×2 (09:35→17:20)
[2022-08-20] MEDS: LIDOCAINE 5% PATCH 3 PATCH TRANSDERM (09:35)
[2022-08-20] MEDS: FLUTICASONE/UMECLIDIN/VILANTER 100-62.5-25 MCG ELLIPTA 1 PUFF INHALATION (10:59)
--- NOTE | 2022-08-20 12:22 | PM.IMPN ---
Progress Note: A&P Assessment and Plan (1) Pneumonia: Qualifiers: Laterality: bilateral Code(s): J18.9 - Pneumonia, unspecified organism Status: Acute Assessment and Plan: Chest x-ray with diffuse lung disease consistent with a that chronic interstitial lung disease with superimposed pulmonary edema versus Started on Rocephin and azithromycin Sputum and blood cultures are negative so far Leukocytosis improving History of secondhand smoking for 20 years On bronchodilators which will be continued Chest x-ray from today reviewed Sputum culture positive for MRSA. Will initiate IV vancomycin As an oral option linezolid was discussed. But she is on sertraline will hold sertraline further await at least for 24 hour washout. To start linezolid oral. Need to watch for serotonin syndrome while on linezolid. Will continue IV vancomycin for now (2) Colles' fracture of right radius: Code(s): S52.531A - Colles' fracture of right radius, initial encounter for closed fracture Status: Acute Assessment and Plan: -The patient was seen by Dr. Zamora - patient has a cast to the right forearm. This is been removed 08/17/2022 (3) ILD (interstitial lung disease): Code(s): J84.9 - Interstitial pulmonary disease, unspecified Status: Acute Assessment and Plan: -The patient is seen by clinical account specialist /Raheel Quintanilla - some of her inhalers are non formulary. -continue with Albuterol and Atrovent. -the patient is on oxygen at 2 L per nasal cannula at home and she has been bumped up the 3 L per nasal cannula. -the patient was given Solu-Medrol in the emergency room. Currently on prednisone 50 mg will start tapered down 40 mg (4) Hypertension: Code(s): I10 - Essential (primary) hypertension Status: Acute Assessment and Plan: -Continue with metoprolol -continue with isosorbide (5) HLD (hyperlipidemia): Code(s): E78.5 - Hyperlipidemia, unspecified Status: Acute Assessment and Plan: -continue with Crestor (6) Depression: Code(s): F32.9 - Major depressive disorder, single episode, unspecified Status: Acute Assessment and Plan: continue with sertraline See above will hold sertraline restart 24 hour after linezolid course would be completed (7) Chronic pancreatitis: Code(s): K86.1 - Other chronic pancreatitis Status: Acute Assessment and Plan: continue with Creon Subjective Date/time seen: 08/20/22 12:22 Interval history: No overnight events. Feels okay. Breathing has improved. Still has cough. Labs were reviewed. Discussed with nursing staff. Review of Systems Review of Systems: All systems reviewed & are unremarkable except as noted in HPI and below Exam Narrative: elderly frail not in acute distress Patient is comfortable, NAD HEENT: eyes are clear and none icteric LUNGS: bilateral fair air entry with course breath sounds and rhonchi HEART: RR S1S2 ABD: BS+, Soft and nontender Lower extremities: no edema cyanosis or clubbing SKIN: nonjaundiced Neuro: grossly intact. Objective Data Vital Signs Vital Signs: Vital Signs - 24 hr 08/19/22 14:30 08/19/22 14:57 08/19/22 14:00 Temperature 97.7 F Pulse Rate 96 96 100 Respiratory Rate 20 20 20 Blood Pressure 118/55 L Pulse Oximetry 98 Oxygen Delivery Oxygen Flow Rate 08/19/22 20:06 08/19/22 20:06 08/19/22 20:22 Temperature Pulse Rate 77 77 81 Respiratory Rate 20 20 Blood Pressure Pulse Oximetry 96 Oxygen Delivery Nasal Cannula Oxygen Flow Rate 2 08/19/22 22:00 08/19/22 20:00 08/20/22 02:08 Temperature 98.3 F Pulse Rate 92 78 Respiratory Rate 20 16 Blood Pressure 116/47 L Pulse Oximetry 97 97 Oxygen Delivery Nasal Cannula Oxygen Flow Rate 2 08/20/22 02:22 08/20/22 06:00 08/20/22 09:33 Temperature 99.3 F Pulse Rate 88 92 92 Respiratory Rate
[2022-08-20] MEDS: traMADol HCL (*CRX) 50 MG TABLET BY MOUTH (21:03)
[2022-08-21] VITALS (12 sets, daily range): BP systolic 107–155; BP diastolic 62–76; PULSE 82–106; RESP 16–20; TEMP 36.4–36.6; O2SAT 95–99
--- NOTE | 2022-08-21 00:26 | PC.NURSE ---
Patient sputum positive for MRSA in addition to her admission diagnosis of pneumonia. MD aware as well as CN and house parent. No new orders at this time. Patient stable and unchanged.
--- NOTE | 2022-08-21 05:27 | PC.NURSE ---
Patient resting quietly in bed. Voicing no complaints throughout night. VSS, compliant with right arm splint. Patient denies any further complaints and has remained stable throughout.
[2022-08-21 07:08] LABS: Hematocrit 35.8 % (37.0-47.0); Hemoglobin 11.4 g/dL (12.0-15.0); Mean Corpuscular HGB Conc 31.8 g/dl (32-36); Mean Corpuscular Hemoglobin 27.1 pg (26-34); Mean Corpuscular Volume 85.2 fl (80-100); Mean Platelet Volume 10.9 fl (7.4-10.4); Platelet Count Result 348 k/mm3 (150-375); Red Cell Distribution Width 14.2 % (11.5-14.5); White Blood Count 13.3 K/mm3 (4.5-10.0)
[2022-08-21 07:21] LABS: Anion Gap 2 mmol/L (8-16); Blood Urea Nitrogen 12 mg/dL (7-17); Calcium 8.5 mg/dL (8.4-10.2); Carbon Dioxide 33 mmol/L (22-30); Chloride 100 mmol/L (98-107); Estimated CRCL calculation 52 ml/min; Estimated Glomerular Filt Rate > 60; Glucose 92 mg/dL (65-110); Magnesium 2.2 mg/dL (1.6-2.3); Potassium 3.6 mmol/L (3.4-5.0); Sodium 135 mmol/L (137-145)
[2022-08-21] MEDS: IPRATROPIUM BR 0.02% INH SOLN 0.5 MG/2.5 ML VIAL INHALATION ×3 (07:48→21:05)
[2022-08-21] MEDS: ALBUTEROL SULFATE NEB 2.5 MG/3 ML INH INHALATION ×3 (07:49→21:05)
[2022-08-21] MEDS: FLUTICASONE/UMECLIDIN/VILANTER 100-62.5-25 MCG ELLIPTA 1 PUFF INHALATION (07:51)
[2022-08-21] MEDS: LIPASE/AMYLASE/PROTEASE 12,000 UNITS CAP 2 CAP BY MOUTH ×3 (08:49→16:35)
[2022-08-21] MEDS: guaiFENesin/DEXTROMETHORPHAN 10 ML UDC PO ×3 (08:49→20:53)
[2022-08-21] MEDS: NYSTATIN 100,000 UNITS/ML SUSP 5 ML ORAL.SUSP PO ×4 (08:50→20:53)
[2022-08-21] MEDS: LIDOCAINE 5% PATCH 3 PATCH TRANSDERM (08:50)
[2022-08-21] MEDS: PANTOPRAZOLE 40 MG TABLET PO (08:50)
[2022-08-21] MEDS: ISOSORBIDE MONONITRATE 30 MG TAB.ER.24H PO (08:50)
[2022-08-21] MEDS: CHOLECALCIFEROL 1,000 UNITS TABLET 2000 UNITS PO (08:50)
[2022-08-21] MEDS: METOPROLOL SUCCINATE EXT REL 25 MG TABCR BY MOUTH (08:51)
[2022-08-21] MEDS: ROSUVASTATIN 5 MG TABLET PO (08:52)
[2022-08-21] MEDS: predniSONE 20 MG TABLET 40 MG PO (08:52)
[2022-08-21] MEDS: FUROSEMIDE 20 MG TABLET BY MOUTH (08:52)
[2022-08-21] MEDS: AZELASTINE HCL NASAL 0.1% 137 MCG/SPR 30 ML BTL 1 SPRAY NASAL ×2 (08:53→16:35)
--- NOTE | 2022-08-21 11:57 | ECG_ITS ---
Measurements Intervals [place] Rate: 77 P: 24 IA: 151 QRS: -23 QRSD: 77 T: 6 QT: 373 QTc: 425 Interpretive Statements SINUS RHYTHM POSSIBLE LEFT ATRIAL ENLARGEMENT LEFT VENTRICULAR HYPERTROPHY AND ST-T CHANGE BORDERLINE ST-T WAVE ABNORMALITY- ANTEROLAT/INF LEADS BORDERLINE ECG COMPARED TO ECG 08/17/2022 09:12:05 NO SIGNIFICANT CHANGES Electronically Signed On 08-21-2022 16:10:53 [employer] by Ravinder Ortiz D.O.
--- NOTE | 2022-08-21 13:31 | PM.IMPN ---
Progress Note: A&P Assessment and Plan (1) Pneumonia: Qualifiers: Laterality: bilateral Code(s): J18.9 - Pneumonia, unspecified organism Status: Acute Assessment and Plan: Chest x-ray with diffuse lung disease consistent with a that chronic interstitial lung disease with superimposed pulmonary edema versus Started on Rocephin and azithromycin Sputum and blood cultures are negative so far Leukocytosis improving History of secondhand smoking for 20 years On bronchodilators which will be continued Chest x-ray from today reviewed Sputum culture positive for MRSA. Will initiate IV vancomycin As an oral option linezolid was discussed. But she is on sertraline will hold sertraline further await at least for 24 hour washout. To start linezolid oral. Need to watch for serotonin syndrome while on linezolid. Will continue IV vancomycin for now (2) Colles' fracture of right radius: Code(s): S52.531A - Colles' fracture of right radius, initial encounter for closed fracture Status: Acute Assessment and Plan: -The patient was seen by Dr. Zamora - patient has a cast to the right forearm. This is been removed 08/17/2022 (3) ILD (interstitial lung disease): Code(s): J84.9 - Interstitial pulmonary disease, unspecified Status: Acute Assessment and Plan: -The patient is seen by family dinner service specialist /Raheel Quintanilla - some of her inhalers are non formulary. -continue with Albuterol and Atrovent. -the patient is on oxygen at 2 L per nasal cannula at home and she has been bumped up the 3 L per nasal cannula. -the patient was given Solu-Medrol in the emergency room. Currently on prednisone 50 mg will start tapered down 40 mg (4) Hypertension: Code(s): I10 - Essential (primary) hypertension Status: Acute Assessment and Plan: -Continue with metoprolol -continue with isosorbide (5) HLD (hyperlipidemia): Code(s): E78.5 - Hyperlipidemia, unspecified Status: Acute Assessment and Plan: -continue with Crestor (6) Depression: Code(s): F32.9 - Major depressive disorder, single episode, unspecified Status: Acute Assessment and Plan: continue with sertraline See above will hold sertraline restart 24 hour after linezolid course would be completed (7) Chronic pancreatitis: Code(s): K86.1 - Other chronic pancreatitis Status: Acute Assessment and Plan: continue with Creon Plan Chest tightness: Will check EKG and repeat chest x-ray Subjective Date/time seen: 08/21/22 13:31 Interval history: Patient reports some chest tightness this a.m.. Still has some cough but better. Oxygen requirement the same. Review of Systems Review of Systems: All systems reviewed & are unremarkable except as noted in HPI and below Exam Narrative: elderly frail not in acute distress Patient is comfortable, NAD HEENT: eyes are clear and none icteric LUNGS: bilateral fair air entry with course breath sounds and rhonchi HEART: RR S1S2 ABD: BS+, Soft and nontender Lower extremities: no edema cyanosis or clubbing SKIN: nonjaundiced Neuro: grossly intact. Objective Data Vital Signs Vital Signs: Vital Signs - 24 hr 08/20/22 14:28 08/20/22 14:35 08/20/22 14:00 Temperature 98.0 F Pulse Rate 86 82 93 Respiratory Rate 23 H 23 H 20 Blood Pressure 110/60 Pulse Oximetry 95 Oxygen Delivery Oxygen Flow Rate 08/20/22 21:23 08/20/22 21:25 08/20/22 22:00 Temperature 98.3 F Pulse Rate 87 93 Respiratory Rate 18 18 Blood Pressure 124/48 L Pulse Oximetry 97 98 Oxygen Delivery Nasal Cannula Oxygen Flow Rate 2 08/20/22 21:34 08/21/22 01:45 08/21/22 06:00 Temperature 97.9 F Pulse Rate 90 85 89 Respiratory Rate 18 18 16 Blood Pressure 155/75 H Pulse Oximetry 99 Oxygen Delivery Oxygen Flow Rate 08/21/22 07:51 08/21/22 08:00 08/21/22 08:51 Tem[place]
[2022-08-21 15:50] LABS: Vancomycin Trough 10.2 ug/mL (10.0-20.0)
[2022-08-21] MEDS: traMADol HCL (*CRX) 50 MG TABLET BY MOUTH (20:53)
[2022-08-22] VITALS (10 sets, daily range): BP systolic 116–151; BP diastolic 51–60; PULSE 68–114; RESP 16–20; TEMP 36.1–36.5; O2SAT 92–99
[2022-08-22 06:49] LABS: Hematocrit 34.5 % (37.0-47.0); Hemoglobin 10.8 g/dL (12.0-15.0); Mean Corpuscular HGB Conc 31.3 g/dl (32-36); Mean Corpuscular Hemoglobin 27.1 pg (26-34); Mean Corpuscular Volume 86.5 fl (80-100); Mean Platelet Volume 10.7 fl (7.4-10.4); Platelet Count Result 335 k/mm3 (150-375); Red Blood Count 3.99 M/mm3 (4.2-5.4); Red Cell Distribution Width 14.2 % (11.5-14.5); White Blood Count 14.5 K/mm3 (4.5-10.0)
[2022-08-22 06:59] LABS: Anion Gap 4 mmol/L (8-16); Blood Urea Nitrogen 15 mg/dL (7-17); Calcium 8.2 mg/dL (8.4-10.2); Carbon Dioxide 31 mmol/L (22-30); Chloride 102 mmol/L (98-107); Estimated CRCL calculation 45 ml/min; Estimated Glomerular Filt Rate > 60; Glucose 95 mg/dL (65-110); Magnesium 2.2 mg/dL (1.6-2.3); Potassium 3.6 mmol/L (3.4-5.0); Sodium 137 mmol/L (137-145)
[2022-08-22] MEDS: IPRATROPIUM BR 0.02% INH SOLN 0.5 MG/2.5 ML VIAL INHALATION ×4 (07:43→20:36)
[2022-08-22] MEDS: ALBUTEROL SULFATE NEB 2.5 MG/3 ML INH INHALATION ×4 (07:43→20:36)
[2022-08-22] MEDS: FLUTICASONE/UMECLIDIN/VILANTER 100-62.5-25 MCG ELLIPTA 1 PUFF INHALATION (07:49)
[2022-08-22] MEDS: LIPASE/AMYLASE/PROTEASE 12,000 UNITS CAP 2 CAP BY MOUTH ×3 (08:51→16:12)
[2022-08-22] MEDS: CHOLECALCIFEROL 1,000 UNITS TABLET 2000 UNITS PO (08:51)
[2022-08-22] MEDS: FUROSEMIDE 20 MG TABLET BY MOUTH (08:51)
[2022-08-22] MEDS: LIDOCAINE 5% PATCH 3 PATCH TRANSDERM (08:51)
[2022-08-22] MEDS: PANTOPRAZOLE 40 MG TABLET PO (08:52)
[2022-08-22] MEDS: ISOSORBIDE MONONITRATE 30 MG TAB.ER.24H PO (08:52)
[2022-08-22] MEDS: NYSTATIN 100,000 UNITS/ML SUSP 5 ML ORAL.SUSP PO ×4 (08:52→20:48)
[2022-08-22] MEDS: predniSONE 20 MG TABLET 40 MG PO (08:52)
[2022-08-22] MEDS: METOPROLOL SUCCINATE EXT REL 25 MG TABCR BY MOUTH (08:52)
[2022-08-22] MEDS: ROSUVASTATIN 5 MG TABLET PO (08:54)
[2022-08-22] MEDS: AZELASTINE HCL NASAL 0.1% 137 MCG/SPR 30 ML BTL 1 SPRAY NASAL ×2 (09:41→16:12)
[2022-08-22] MEDS: guaiFENesin/DEXTROMETHORPHAN 10 ML UDC PO ×3 (09:41→20:47)
--- NOTE | 2022-08-22 13:10 | PM.IMPN ---
Progress Note: A&P Assessment and Plan (1) Pneumonia: Qualifiers: Laterality: bilateral Code(s): J18.9 - Pneumonia, unspecified organism Status: Acute Assessment and Plan: Chest x-ray with diffuse lung disease consistent with a that chronic interstitial lung disease with superimposed pulmonary edema versus Started on Rocephin and azithromycin Sputum and blood cultures are negative so far Leukocytosis improving History of secondhand smoking for 20 years On bronchodilators which will be continued Chest x-ray from today reviewed Sputum culture positive for MRSA. Will initiate IV vancomycin As an oral option linezolid was discussed. But she is on sertraline will hold sertraline further await at least for 24 hour washout. To start linezolid oral. Need to watch for serotonin syndrome while on linezolid. Will continue IV vancomycin for now Will start oral linezolid tonight (2) Colles' fracture of right radius: Code(s): S52.531A - Colles' fracture of right radius, initial encounter for closed fracture Status: Acute Assessment and Plan: -The patient was seen by Dr. Zamora - patient has a cast to the right forearm. This is been removed 08/17/2022 (3) ILD (interstitial lung disease): Code(s): J84.9 - Interstitial pulmonary disease, unspecified Status: Acute Assessment and Plan: -The patient is seen by instructional design specialist /Raheel Quintanilla - some of her inhalers are non formulary. -continue with Albuterol and Atrovent. -the patient is on oxygen at 2 L per nasal cannula at home and she has been bumped up the 3 L per nasal cannula. -the patient was given Solu-Medrol in the emergency room. Currently on prednisone 50 mg will start tapered down 40 mg. Further taper to 30 mg daily (4) Hypertension: Code(s): I10 - Essential (primary) hypertension Status: Acute Assessment and Plan: -Continue with metoprolol -continue with isosorbide (5) HLD (hyperlipidemia): Code(s): E78.5 - Hyperlipidemia, unspecified Status: Acute Assessment and Plan: -continue with Crestor (6) Depression: Code(s): F32.9 - Major depressive disorder, single episode, unspecified Status: Acute Assessment and Plan: continue with sertraline See above will hold sertraline restart 24 hour after linezolid course would be completed Sertraline currently on hold (7) Chronic pancreatitis: Code(s): K86.1 - Other chronic pancreatitis Status: Acute Assessment and Plan: continue with Creon Plan Chest tightness: EKG with no acute findings. Chest x-ray stable findings Subjective Date/time seen: 08/22/22 13:10 Interval history: no overnight events. Still having cough with expectoration. Brownish expiration noted. Oxygen requirement the same. Review of Systems Review of Systems: All systems reviewed & are unremarkable except as noted in HPI and below Exam Narrative: elderly frail not in acute distress Patient is comfortable, NAD HEENT: eyes are clear and none icteric LUNGS: bilateral fair air entry with course breath sounds and rhonchi HEART: RR S1S2 ABD: BS+, Soft and nontender Lower extremities: no edema cyanosis or clubbing SKIN: nonjaundiced Neuro: grossly intact. Objective Data Vital Signs Vital Signs: Vital Signs - 24 hr 08/21/22 13:40 08/21/22 13:51 08/21/22 14:00 Temperature 97.6 F Pulse Rate 88 85 106 H Respiratory Rate 16 16 20 Blood Pressure 107/62 Pulse Oximetry 96 Oxygen Delivery Oxygen Flow Rate 08/21/22 21:09 08/21/22 21:19 08/21/22 22:00 Temperature 97.5 F L Pulse Rate 82 85 84 Respiratory Rate 16 16 18 Blood Pressure 135/76 Pulse Oximetry 98 Oxygen Delivery Oxygen Flow Rate 08/22/22 06:00 08/22/22 07:44 08/22/22 07:48 Temperature 97.4 F L Pulse Rate 74 78 78 Respiratory Rate 17 16 16 Blood Pressure 151/55 H Pulse Ox
--- NOTE | 2022-08-22 15:51 | PCRCNOTE ---
Window of time for administration has passed. See next scheduled administration.
[2022-08-22] MEDS: LINEZOLID 600 MG TABLET PO (20:47)
[2022-08-23] VITALS (14 sets, daily range): BP systolic 114–137; BP diastolic 59–66; PULSE 62–88; RESP 14–18; TEMP 36.1–36.2; O2SAT 96–98
[2022-08-23] MEDS: ALBUTEROL SULFATE NEB 2.5 MG/3 ML INH INHALATION ×4 (02:24→21:27)
[2022-08-23] MEDS: IPRATROPIUM BR 0.02% INH SOLN 0.5 MG/2.5 ML VIAL INHALATION ×4 (02:24→21:27)
--- NOTE | 2022-08-23 05:28 | PC.NURSE ---
Patient resting throughout night. VSS and denies any compaints of pain or increased SOB. Patient still has a productive cough but is able to effectively clear secretions. Patient otherwise voicing no further complaints at this time.
[2022-08-23] MEDS: guaiFENesin/DEXTROMETHORPHAN 10 ML UDC PO ×3 (05:36→21:28)
[2022-08-23 06:53] LABS: Anion Gap 4 mmol/L (8-16); Blood Urea Nitrogen 16 mg/dL (7-17); Calcium 8.2 mg/dL (8.4-10.2); Carbon Dioxide 30 mmol/L (22-30); Chloride 97 mmol/L (98-107); Estimated CRCL calculation 45 ml/min; Estimated Glomerular Filt Rate > 60; Glucose 115 mg/dL (65-110); Magnesium 2.2 mg/dL (1.6-2.3); Potassium 3.1 mmol/L (3.4-5.0); Sodium 131 mmol/L (137-145)
[2022-08-23 06:54] LABS: Hematocrit 36.5 % (37.0-47.0); Hemoglobin 11.2 g/dL (12.0-15.0); Mean Corpuscular HGB Conc 30.7 g/dl (32-36); Mean Corpuscular Hemoglobin 27.1 pg (26-34); Mean Corpuscular Volume 88.4 fl (80-100); Mean Platelet Volume 10.8 fl (7.4-10.4); Platelet Count Result 318 k/mm3 (150-375); Red Blood Count 4.13 M/mm3 (4.2-5.4); Red Cell Distribution Width 14.1 % (11.5-14.5); White Blood Count 15.2 K/mm3 (4.5-10.0)
[2022-08-23] MEDS: FLUTICASONE/UMECLIDIN/VILANTER 100-62.5-25 MCG ELLIPTA 1 PUFF INHALATION (08:03)
[2022-08-23] MEDS: LIPASE/AMYLASE/PROTEASE 12,000 UNITS CAP 2 CAP BY MOUTH ×3 (09:04→17:14)
[2022-08-23] MEDS: predniSONE 10 MG TABLET 30 MG PO (09:05)
[2022-08-23] MEDS: FUROSEMIDE 20 MG TABLET BY MOUTH (09:05)
[2022-08-23] MEDS: PANTOPRAZOLE 40 MG TABLET PO (09:05)
[2022-08-23] MEDS: CHOLECALCIFEROL 1,000 UNITS TABLET 2000 UNITS PO (09:06)
[2022-08-23] MEDS: ROSUVASTATIN 5 MG TABLET PO (09:06)
[2022-08-23] MEDS: ISOSORBIDE MONONITRATE 30 MG TAB.ER.24H PO (09:06)
[2022-08-23] MEDS: METOPROLOL SUCCINATE EXT REL 25 MG TABCR BY MOUTH (09:06)
[2022-08-23] MEDS: LINEZOLID 600 MG TABLET PO ×2 (09:06→21:27)
[2022-08-23] MEDS: LIDOCAINE 5% PATCH 3 PATCH TRANSDERM (09:08)
[2022-08-23] MEDS: NYSTATIN 100,000 UNITS/ML SUSP 5 ML ORAL.SUSP PO ×4 (09:08→21:29)
[2022-08-23] MEDS: POTASSIUM CHLORIDE 20 MEQ TABLET 40 MEQ PO (09:14)
[2022-08-23] MEDS: AZELASTINE HCL NASAL 0.1% 137 MCG/SPR 30 ML BTL 1 SPRAY NASAL ×2 (09:20→17:16)
--- NOTE | 2022-08-23 09:33 | PCNWS ---
Weekly nutritional screen. Patient is tolerating current heart healthy diet with adequate intake at 75-100%. No weight loss reported. No nutritional needs at this time.
[2022-08-23] MEDS: FLUCONAZOLE 100 MG TABLET PO (14:03)
--- NOTE | 2022-08-23 16:04 | PM.IMPN ---
Progress Note: A&P Assessment and Plan (1) Pneumonia: Qualifiers: Laterality: bilateral Code(s): J18.9 - Pneumonia, unspecified organism Status: Acute Assessment and Plan: Chest x-ray with diffuse lung disease consistent with a that chronic interstitial lung disease with superimposed pulmonary edema versus Started on Rocephin and azithromycin Sputum and blood cultures are negative so far Leukocytosis improving History of secondhand smoking for 20 years On bronchodilators which will be continued Chest x-ray from today reviewed Sputum culture positive for MRSA. Will initiate IV vancomycin As an oral option linezolid was discussed. But she is on sertraline will hold sertraline further await at least for 24 hour washout. To start linezolid oral. Need to watch for serotonin syndrome while on linezolid. Will continue IV vancomycin for now Started on linezolid 08/22/2022. (2) Colles' fracture of right radius: Code(s): S52.531A - Colles' fracture of right radius, initial encounter for closed fracture Status: Acute Assessment and Plan: -The patient was seen by Dr. Zamora - patient has a cast to the right forearm. This is been removed 08/17/2022 (3) ILD (interstitial lung disease): Code(s): J84.9 - Interstitial pulmonary disease, unspecified Status: Acute Assessment and Plan: -The patient is seen by human resources operations specialist /Raheel Quintanilla - some of her inhalers are non formulary. -continue with Albuterol and Atrovent. -the patient is on oxygen at 2 L per nasal cannula at home and she has been bumped up the 3 L per nasal cannula. -the patient was given Solu-Medrol in the emergency room. Currently on prednisone 50 mg will start tapered down 40 mg. Further taper to 30 mg daily (4) Hypertension: Code(s): I10 - Essential (primary) hypertension Status: Acute Assessment and Plan: -Continue with metoprolol -continue with isosorbide (5) HLD (hyperlipidemia): Code(s): E78.5 - Hyperlipidemia, unspecified Status: Acute Assessment and Plan: -continue with Crestor (6) Depression: Code(s): F32.9 - Major depressive disorder, single episode, unspecified Status: Acute Assessment and Plan: continue with sertraline See above will hold sertraline restart 24 hour after linezolid course would be completed Sertraline currently on hold (7) Chronic pancreatitis: Code(s): K86.1 - Other chronic pancreatitis Status: Acute Assessment and Plan: continue with Creon Plan Chest tightness: EKG with no acute findings. Chest x-ray stable findings Stomatitis on nystatin swish and swallow. Will oral fluconazole today. Also reports some odynophagia. Subjective Date/time seen: 08/23/22 16:04 Interval history: Complains of fullness in her ear pain in her left side of the neck. Shortness of breath on exertion. Still having cough. With expectoration. Review of Systems Review of Systems: All systems reviewed & are unremarkable except as noted in HPI and below Exam Narrative: elderly frail not in acute distress Patient is comfortable, NAD Right ear presence of wax, left ear tympanic membrane clear HEENT: eyes are clear and none icteric LUNGS: bilateral fair air entry with course breath sounds and rhonchi HEART: RR S1S2 ABD: BS+, Soft and nontender Lower extremities: no edema cyanosis or clubbing SKIN: nonjaundiced Neuro: grossly intact. Objective Data Vital Signs Vital Signs: Vital Signs - 24 hr 08/22/22 20:39 08/22/22 20:39 08/22/22 20:57 Temperature Pulse Rate 69 74 Respiratory Rate 20 18 Blood Pressure Pulse Oximetry 99 Oxygen Delivery Nasal Cannula Oxygen Flow Rate 2 08/22/22 22:00 08/23/22 02:27 08/23/22 02:41 Temperature 97 F L Pulse Rate 78 74 73 Respiratory Rate 16 16 16 Blood Pressure 124/51 L Pulse Oximetry 98 Oxygen Delivery
[2022-08-23] MEDS: FLUTICASONE PROPIONATE 0.05% NA SPR 16 GM BTL (*BKC) 1 SPRAY NASAL (21:29)
[2022-08-24] VITALS (10 sets, daily range): BP systolic 95–132; BP diastolic 48–68; PULSE 72–88; RESP 16–24; TEMP 36.3–36.7; O2SAT 95–99
[2022-08-24] MEDS: IPRATROPIUM BR 0.02% INH SOLN 0.5 MG/2.5 ML VIAL INHALATION ×2 (02:35→09:27)
[2022-08-24] MEDS: ALBUTEROL SULFATE NEB 2.5 MG/3 ML INH INHALATION ×3 (02:35→14:26)
[2022-08-24] MEDS: guaiFENesin/DEXTROMETHORPHAN 10 ML UDC PO ×2 (05:09→14:26)
[2022-08-24 06:15] LABS: Hematocrit 35.8 % (37.0-47.0); Hemoglobin 11.3 g/dL (12.0-15.0); Mean Corpuscular HGB Conc 31.6 g/dl (32-36); Mean Corpuscular Hemoglobin 27.6 pg (26-34); Mean Corpuscular Volume 87.3 fl (80-100); Mean Platelet Volume 10.7 fl (7.4-10.4); Platelet Count Result 320 k/mm3 (150-375); Red Cell Distribution Width 14.1 % (11.5-14.5); White Blood Count 16.4 K/mm3 (4.5-10.0)
[2022-08-24 06:26] LABS: Anion Gap 6 mmol/L (8-16); Blood Urea Nitrogen 16 mg/dL (7-17); Calcium 8.2 mg/dL (8.4-10.2); Carbon Dioxide 32 mmol/L (22-30); Chloride 96 mmol/L (98-107); Estimated CRCL calculation 40 ml/min; Estimated Glomerular Filt Rate > 60; Glucose 99 mg/dL (65-110); Magnesium 2.3 mg/dL (1.6-2.3); Potassium 3.3 mmol/L (3.4-5.0); Sodium 134 mmol/L (137-145)
--- NOTE | 2022-08-24 08:05 | PC.NURSE ---
At 1999 on 08/23/2022 pt c/o of underneath right breast rash. Pt states, it's not itchy. Pt states she has been putting Aloe Holstein on it. Pt states she thinks it may be her Shingles coming back. RN noted and will bring attention to doctor.
[2022-08-24] MEDS: FLUTICASONE PROPIONATE 0.05% NA SPR 16 GM BTL (*BKC) 1 SPRAY NASAL (08:35)
[2022-08-24] MEDS: AZELASTINE HCL NASAL 0.1% 137 MCG/SPR 30 ML BTL 1 SPRAY NASAL ×2 (08:35→16:47)
[2022-08-24] MEDS: LIDOCAINE 5% PATCH 3 PATCH TRANSDERM (08:35)
[2022-08-24] MEDS: ISOSORBIDE MONONITRATE 30 MG TAB.ER.24H PO (08:35)
[2022-08-24] MEDS: NYSTATIN 100,000 UNITS/ML SUSP 5 ML ORAL.SUSP PO ×3 (08:35→16:45)
[2022-08-24] MEDS: LIPASE/AMYLASE/PROTEASE 12,000 UNITS CAP 2 CAP BY MOUTH ×3 (08:35→16:44)
[2022-08-24] MEDS: METOPROLOL SUCCINATE EXT REL 25 MG TABCR BY MOUTH (08:36)
[2022-08-24] MEDS: LINEZOLID 600 MG TABLET PO (08:36)
[2022-08-24] MEDS: predniSONE 10 MG TABLET 30 MG PO (08:36)
[2022-08-24] MEDS: ROSUVASTATIN 5 MG TABLET PO (08:37)
[2022-08-24] MEDS: CHOLECALCIFEROL 1,000 UNITS TABLET 2000 UNITS PO (08:37)
[2022-08-24] MEDS: FLUCONAZOLE 100 MG TABLET PO (08:37)
[2022-08-24] MEDS: PANTOPRAZOLE 40 MG TABLET PO (08:38)
[2022-08-24] MEDS: FUROSEMIDE 20 MG TABLET BY MOUTH (08:38)
[2022-08-24] MEDS: FLUTICASONE/UMECLIDIN/VILANTER 100-62.5-25 MCG ELLIPTA 1 PUFF INHALATION (09:27)
[2022-08-24] MEDS: TOLNAFTATE 1% POWDER 45 GM BTL 1 APPLIC TOPICAL (14:26)
--- NOTE | 2022-08-24 15:55 | PM.DS ---
DS: Admitting Diagnosis Discharge Date 08/24/22 Admitting Diagnosis cough and shortness of breath DS: Discharge Diagnosis Discharge Diagnosis (1) Pneumonia: Qualifiers: Laterality: bilateral Code(s): J18.9 - Pneumonia, unspecified organism Status: Acute (2) Colles' fracture of right radius: Code(s): S52.531A - Colles' fracture of right radius, initial encounter for closed fracture Status: Acute (3) ILD (interstitial lung disease): Code(s): J84.9 - Interstitial pulmonary disease, unspecified Status: Acute (4) Hypertension: Code(s): I10 - Essential (primary) hypertension Status: Acute (5) HLD (hyperlipidemia): Code(s): E78.5 - Hyperlipidemia, unspecified Status: Acute (6) Depression: Code(s): F32.9 - Major depressive disorder, single episode, unspecified Status: Acute (7) Chronic pancreatitis: Code(s): K86.1 - Other chronic pancreatitis Status: Acute DS: Summary Hospital Course Hospital Course: # Pneumonia: Chest x-ray with diffuse lung disease consistent with a that chronic interstitial lung disease with superimposed pulmonary edema versus Started on Rocephin and azithromycin Leukocytosis improving History of secondhand smoking for 20 years On bronchodilators which will be continued Chest x-ray from today reviewed Sputum culture positive for MRSA.? initiated vancomycin iv. discused oral option. switched to linezolid oral for discahrge. she will need 2 more days treatment for completion of MRSA pneumonia. her tramadol and sertraline was placed on hold before initaiton. she tolerated linezolid well without any complications. she will restart tramadol and sertraline at least a day post completion of linezolid. # Colles' fracture of right radius: ? -The patient was seen by Dr. Aurelio Zamora - patient has a cast to the right forearm. This is been removed 08/17/2022 # ILD (interstitial lung disease): ? -The patient is seen by ? internal specialist /Raheel Quintanilla - some of her inhalers are non formulary. -continue with ? Albuterol and Atrovent. ?-the patient is on oxygen at 2 L per nasal cannula at home and she has been bumped up the 3 L per nasal cannula. ?-the patient was given Solu-Medrol in the emergency room. Currently on prednisone 50 mg will start tapered down 40 mg.? Further taper to 30 mg daily furthe taper slowly as op basis. fu with pulmonary as scheduled # Hypertension: ? -Continue with metoprolol -continue with isosorbide # HLD (hyperlipidemia): ?-continue with Crestor # Depression: ?continue with sertraline See above will hold sertraline restart 24 hour after linezolid course would be completed Sertraline currently on hold # Chronic pancreatitis: ?continue with Creon # Chest tightness: ? EKG with no acute findings.? Chest x-ray stable findings # Stomatitis on nystatin swish and swallow.? started on fluconazole, will give a week course. associated odynophagia with this. possible thrush. pt also on steroid. Time Spent with Patient Time attestation: Total time spent providing and/or coordinating discharge services:45 mins Exam Narrative: elderly frail not in acute distress Patient is comfortable, NAD Right ear presence of wax, left ear tympanic membrane clear HEENT: eyes are clear and none icteric LUNGS: bilateral fair air entry with coarse breath sounds HEART: RR S1S2 ABD: BS+, Soft and nontender Lower extremities: no edema cyanosis or clubbing SKIN: nonjaundiced Neuro: grossly intact. DS: Data Data Completed and Pending Labs on day of discharge: Labs from last 24 hours 08/24/22 08/24/22 05:44 05:44 WBC 16.4 H RBC 4.10 L Hgb 11.3 L Hct 35.8 L MCV 87.3 MCH 27.6 MCHC 31.6 L RDW 14.1 Plt Count 320 MPV 10.7 H Sodium 134 L Potassium 3.3 L Chloride 96 L Carbon Dioxide 32 H Anion Gap 6 L BUN 16 Creatinine 0.80 Estim Creat Clear Calc 40 Es
== END 2022-08-24 17:40 | disposition home health service (06) | DRG 178 ==
LOC: ANHED 15:35 → ANH3MEDSUR 17:20
PROVIDERS: Nurse Practitioner; Physician Assistant; Admitting Provider Family Medicine; Emergency Provider Emergency Medicine; PCP Nurse Practitioner Family; Visit Provider Internal Medicine
DX: J15.212 Pneumonia due to Methicillin resistant Staphylococcus aureus (principal); J44.0 Chronic obstructive pulmonary disease with (acute) lower respiratory infection; K86.1 Other chronic pancreatitis; I10 Essential (primary) hypertension; E78.5 Hyperlipidemia, unspecified; F32.9 Major depressive disorder, single episode, unspecified; M81.0 Age-related osteoporosis without current pathological fracture; K12.1 Other forms of stomatitis; R13.10 Dysphagia, unspecified; B37.9 Candidiasis, unspecified; S52.531D Colles' fracture of right radius, subsequent encounter for closed fracture with routine healing; Z79.899 Other long term (current) drug therapy; Z20.822 Contact with and (suspected) exposure to COVID-19; Z99.81 Dependence on supplemental oxygen; Z77.22 Contact with and (suspected) exposure to environmental tobacco smoke (acute) (chronic); Z82.49 Family history of ischemic heart disease and other diseases of the circulatory system; Z83.3 Family history of diabetes mellitus
CPT/HCPCS: 36415; 71045; 80048; 80053; 80202; 83605; 83735; 83880; 85025; 85027; 87040; 87070; 87147; 87186; 87205; 87636; 93005; 94618; 94640; 96365; 96366; 96367; 96375; 97110; 97116; 97161; 97165; 97530; 97535; 99285; A9270; G0378; J0456; J0696; J2930; J3370; J3480; J7030; J7040; J7512

== ENCOUNTER 2022-12-06 11:57 | Outpatient (CLI) | payer MEDICARE, SELFPAY ==
--- NOTE | ~2022-12-06 | XR_ITS ---
EXAMINATION: XR lg joint inject/asp w image DATE: 12/06/2022 13:01 INDICATION: Left shoulder advanced osteoarthritis. TECHNIQUE: A time-out was performed to verify the patient's name, date of , and procedure to b e performed. The procedure including the risks, benefits, and alternatives was discussed with the pat ient. Risks discussed included bleeding and infection. The patient understood the risks and agreed to proceed. The skin overlying the left glenohumeral joint was prepped and draped in usual sterile fas hion. Anesthetic was administered with 1% lidocaine subcutaneously. A 22 G needle was advanced unde r fluoroscopic guidance into the joint. Subsequently, injectate consisting of 3 mL 1% lidocaine and 1 mL 80 mg/mL Depo-Medrol was instilled. The needle was removed and the entry site was cleaned and d ressed. There were no immediate complications. Fluoroscopy exposure time was 0.1 minutes. The total number of images was 1. FINDINGS: Real-time fluoroscopy demonstrates the needle in the left glenohumeral joint. Patient's min n prior to procedure:2/10. Patient's pain following the procedure: 0/10. IMPRESSION: 1. Fluoroscopy guided left glenohumeral joint injection of local anesthetic and steroid with decrease in the patient's presenting pain. Reviewed, dictated and finalized at location A.
== END 2022-12-06 11:58 | disposition home or self-care (01) ==
PROVIDERS: PCP Nurse Practitioner Family; Visit Provider Orthopaedic Surgery
DX: M19.012 Primary osteoarthritis, left shoulder (principal)
CPT/HCPCS: 20610; 77002; J1040

== ENCOUNTER 2023-01-19 05:06 | Inpatient (IN) | payer MEDICARE, SELFPAY ==
--- NOTE | ~2023-01-19 | CT_ITS ---
CT ANGIOGRAM NECK AND HEAD History: Dizziness. Technique: Serial spiral axial images through the head and neck were obtained during arterial phase I V injection of 100 cc of Omnipaque 350. 3-D postprocessing and MIP images were then reconstructed on the remote workstation. Dose reduction technique was used on this scan by utilizing automated exposur e control and iterative reconstruction technique. The dose-length product (DLP) was 1186.67 mGy-cm. CTA neck findings: Bilateral common carotid, internal carotid, and external carotid arteries are pat ent. No stenosis or occlusion. Bilateral vertebral arteries are patent. The proximal right internal c arotid artery demonstrates 0% stenosis relative to the normal distal artery lumen diameter. The proxi mal left internal carotid artery demonstrates 0% stenosis relative to the normal distal artery lumen diameter. Lung apices demonstrate extensive groundglass opacity with probable subpleural reticulation. CTA head findings: Distal vertebral arteries, basilar artery, and posterior cerebral arteries are pat ent. Distal internal carotid arteries, middle cerebral arteries, anterior cerebral arteries are paten t. No large vessel occlusion. No stenosis or aneurysm evident. Impression: No significant vascular abnormality seen. Extensive groundglass opacity and probable subpleural reticulation at the lung apices. Correlate for chronic interstitial disease and/or pulmonary edema or other infectious/inflammatory condition. Reviewed, dictated and finalized at location . Impression: No significant vascular abnormality seen. Extensive groundglass opacity and probable subpleural reticulation at the lung apices. Correlate for chronic interstitial disease and/or pulmonary edema or ot her infectious/inflammatory condition.
--- NOTE | ~2023-01-19 | XR_ITS ---
XR shoulder LT min 2V 01/19/2023 19:57 Technique: AP and scapular Y views were obtained. Clinical History: Pain, status post fall Findings: There is a fracture, mildly impacted, through the surgical neck of the humerus. There are a dditional fracture lines with small fragments extending through the greater tuberosity of the humerus . There is advanced degenerative change of the glenohumeral joint, with joint space narrowing and lar ge inferomedial humeral head osteophyte. AC joint is intact. Soft tissues are unremarkable. Impression: Comminuted, minimally displaced, mildly impacted fracture predominantly through the surgical neck of the humerus, with additional involvement of the greater tuberosity. Advanced osteoarthritis of the glenohumeral joint. Findings discussed with ER staff at 6:45 PM on 01/19/2023. Reviewed, dictated and finalized at location L. Impression: Comminuted, minimally displaced, mildly impacted fracture predominantly through the surgical neck of the humerus, with additional involvement of the greater t uberosity. Advanced osteoarthritis of the glenohumeral joint. Findings discussed with ER staff at 6:45 PM on 01/19/2023.
--- NOTE | ~2023-01-19 | XR_ITS ---
Portable chest x-ray Comparison: 08/21/2022 Clinical History: Status post fall Findings: There is mild haziness in the lungs, similar to prior exam. No definite pleural effusion o r pneumothorax. Cardiomediastinal silhouette is stable. Right shoulder arthroplasty is unchanged. Impression: Mild haziness in the lungs, similar to prior exam. Correlate for mild pulmonary edema or possibly chr onic interstitial disease. Reviewed, dictated and finalized at location . Impression: Mild haziness in the lungs, similar to prior exam. Correlate for mild pulmonary edema or possibly chronic interstitial disease.
--- NOTE | ~2023-01-19 | CT_ITS ---
EXAMINATION: CT facial bones wo con DATE: 01/19/2023 21:36 INDICATION: Left facial contusion. Dizziness. TECHNIQUE: Computed tomography (CT) of the facial bones and maxillofacial region was performed withou t intravenous contrast. Automated exposure control and iterative reconstruction technique were employ ed. The dose-length product was 572.17 mGy-cm. COMPARISON: Sinuses CT 09/28/2017 FINDINGS: There is a left frontal scalp laceration. There are likely changes of ocular lens replaceme nt surgeries. There is mild mucosal thickening in the paranasal sinuses. There is rightward deviation of the nasal septum. IMPRESSION: 1. No acute fracture. Reviewed, dictated and finalized at location A. IMPRESSION: 1. No acute fracture.
--- NOTE | ~2023-01-19 | CT_ITS ---
EXAMINATION: CT cervical spine wo con DATE: 01/19/23 INDICATION: Head injury. TECHNIQUE: Computed tomography (CT) of the cervical spine was performed without intravenous contrast. Automated exposure control and iterative reconstruction technique were employed. The dose-length pro duct was 561 mGy-cm. COMPARISON: CT cervical spine 06/19/2022 FINDINGS: There is kyphosis of cervical spine. There is 24 degrees levoscoliosis of cervicothoracic s pine. There is mild chronic anterior wedging of T3 vertebral body. There is moderately decreased disc height at C2-C3 and severely decreased disc height from C3-C4 through T3-T4 with endplate remodeling . The following disc levels are specifically discussed: C2-C3: There is mild right and severe left uncovertebral joint osteoarthritis. There is severe bilate ral facet joint osteoarthritis. There is mild right and moderate left neural foraminal stenosis. Ther e is no central canal stenosis. C3-C4: There is severe bilateral uncovertebral joint osteoarthritis. There is severe bilateral facet joint osteoarthritis. There is moderate bilateral neural foraminal stenosis. There is mild central ca nal stenosis. C4-C5: There is severe bilateral uncovertebral joint osteoarthritis. There is mild bilateral facet claudette int osteoarthritis. There is mild bilateral neural foraminal stenosis. There is mild central canal st enosis. C5-C6: There is severe bilateral uncovertebral joint osteoarthritis. There is severe bilateral facet joint osteoarthritis. There is moderate bilateral neural foraminal stenosis. There is mild central ca nal stenosis. C6-C7: There is severe bilateral uncovertebral joint osteoarthritis. There is mild bilateral facet claudette int osteoarthritis. There is moderate right and mild left neural foraminal stenosis. There is mild ce ntral canal stenosis. C7-T1: There is severe bilateral uncovertebral joint osteoarthritis. There is severe bilateral facet joint osteoarthritis. There is mild bilateral neural foraminal stenosis. There is mild central canal stenosis. IMPRESSION: 1. No fracture. 2. Severe cervical spondylosis. 3. Cervicothoracic levoscoliosis. Reviewed, dictated and finalized at location A.
--- NOTE | ~2023-01-19 | XR_ITS ---
EXAMINATION: XR knee LT 3V DATE: 01/20/2023 17:02 INDICATION: Left knee pain. Fall. TECHNIQUE: 3 views of left knee were obtained. COMPARISON: None. FINDINGS: There is a total left knee arthroplasty in near-anatomic alignment with patellar resurfacin g. No fracture. No periprosthetic lucency to suggest loosening or infection. No knee joint effusion. IMPRESSION: 1. Total left knee arthroplasty in near-anatomic alignment. Reviewed, dictated and finalized at location A.
--- NOTE | ~2023-01-19 | CT_ITS ---
EXAMINATION: CT brain wo con DATE: 01/19/23 INDICATION: Head injury. TECHNIQUE: Computed tomography (CT) of the head was performed without intravenous contrast. The mA wa s adjusted according to patient size. Iterative reconstruction technique was employed. The dose-lengt h product was 681 mGy-cm. COMPARISON: Head CT 06/19/2022 FINDINGS: There are scattered areas of low attenuation in the cerebral white matter. There is no intr acranial hemorrhage, acute infarction, or abnormal intracranial mass lesion. The ventricles are sheldon l in size. There is mild mucosal thickening in the paranasal sinuses. There are likely changes of ocu lar lens replacement surgeries. There is a hematoma in the frontal scalp with soft tissue gas suggest ing laceration. The mastoid air cells are normal. IMPRESSION: 1. Stable mild nonspecific cerebral white matter disease, which likely represents chronic small vesse l ischemic disease. Reviewed, dictated and finalized at location A. IMPRESSION: 1. Stable mild nonspecific cerebral white matter disease, which likely represen ts chronic small vessel ischemic disease.
--- NOTE | 2023-01-19 17:29 | ECG_ITS ---
Measurements Intervals [place] Rate: 89 P: -5 MD: 162 QRS: 53 QRSD: 106 T: 29 QT: 322 QTc: 393 Interpretive Statements SINUS RHYTHM LOW QRS VOLTAGE IN PRECORDIAL LEADS [QRS DEFLECTION < 1.0 mV IN CHEST LEADS] OTHERWISE WITHIN NORMAL LIMITS COMPARED TO ECG 08/21/2022 12:32:01 VOLTAGE FOR LVH IS NO LONGER SEEN Electronically Signed On 01-28-2023 16:06:33 CDT by Nilson Powell M.D.
[2023-01-19 20:02] VITALS: BP 133/71; PULSE 72; RESP 17; O2SAT 100
--- NOTE | 2023-01-19 20:02 | ED.FALL ---
HPI - Fall General Chief Complaint: Fall History of Present Illness HPI Narrative: Patient is a 88-year-old female here for evaluation after a fall. Patient states that she got dizzy and fell, hit her head against the bathroom floor and her left shoulder. Since the fall she has felt dizzy, have left shoulder pain. She does have a history of vertigo and states that dizziness is not atypical for her. Denies any chest pain, shortness of breath, fevers or chills, nausea or vomiting. No numbness or tingling in the shoulder. Related Data Home Medications Medication Instructions Recorded Confirmed rosuvastatin 5 mg tablet 5 mg PO DAILY 07/10/19 01/20/23 mometasone-formoterol HFA 200 See Rx Instructions .Route .COMPLEX 11/11/21 08/15/22 mcg-5 mcg/actuation aerosol inhaler tramadol 50 mg tablet 50 mg PO BID 11/11/21 01/20/23 cyanocobalamin (vitamin B-12) 1,000 mcg subcut MONTHLY 08/15/22 01/20/23 1,000 mcg/mL injection solution fluticasone fur. 100 mcg-umeclid 1 inh inhalation DAILY 08/15/22 01/20/23 62.5 mcg-vilant 25 mcg inhalat.powder (Trelegy Ellipta) isosorbide mononitrate 30 mg 30 mg PO DAILY 08/15/22 01/20/23 tablet,extended release 24 hr Salonpas 3 patch topical DAILY 01/20/23 01/20/23 albuterol 90 mcg/actuation aerosol 1 - 2 mcg inhalation Q6H PRN 01/20/23 01/20/23 inhaler Shortness Of Breath albuterol sulfate 2.5 mg/3 mL 2.5 mg inhalation Q6H 01/20/23 01/20/23 (0.083 %) solution for nebulization eszopiclone 1 mg tablet 1 mg PO HS 01/20/23 01/20/23 fexofenadine 180 mg tablet 180 mg PO .NOON 01/20/23 01/20/23 furosemide 20 mg tablet 20 mg PO DAILY 01/20/23 01/20/23 ipratropium bromide 0.02 % 1 ml inhalation Q6H 01/20/23 01/20/23 solution for inhalation [id number] 1 cap PO QID 01/20/23 01/20/23 24,000-76,000-120,000 unit capsule,delayed rel (Creon) metoprolol succinate 25 mg 25 mg PO DAILY 01/20/23 01/20/23 tablet,extended release 24 hr sertraline 50 mg tablet 50 mg PO DAILY 01/20/23 01/20/23 sodium chloride 0.65 % nasal spray 1 spray intranasal TID 01/20/23 01/20/23 aerosol (Saline Nasal) Allergies Allergy/AdvReac Type Severity Reaction Status Date / Time adhesive tape Allergy Intermediate Rash Verified 01/20/23 00:55 alendronate sodium Allergy Unknown unknown Verified 01/20/23 00:55 amitriptyline Allergy Unknown unknown Verified 01/20/23 00:55 chlordiazepoxide Allergy Unknown unknown Verified 01/20/23 00:55 diazepam Allergy Unknown unknown Verified 01/20/23 00:55 diphenhydramine Allergy Unknown unknown Verified 01/20/23 00:55 flurbiprofen Allergy Unknown unknown Verified 01/20/23 00:55 hydrocodone Allergy Unknown unknown Verified 01/20/23 00:55 ibuprofen Allergy Unknown unknown Verified 01/20/23 00:55 lansoprazole Allergy Unknown unknown Verified 01/20/23 00:55 lorazepam Allergy Unknown unknown Verified 01/20/23 00:55 methotrexate Allergy Unknown unknown Verified 01/20/23 00:55 morphine Allergy Unknown unknown Verified 01/20/23 00:55 nizatidine Allergy Unknown unknown Verified 01/20/23 00:55 NSAIDS (Non-Steroidal Allergy Unknown unknown Verified 01/20/23 00:55 Anti-Inflamma Penicillins Allergy Unknown unknown Verified 01/20/23 00:55 perphenazine Allergy Unknown unknown Verified 01/20/23 00:55 propoxyphene Allergy Unknown unknown Verified 01/20/23 00:55 ranitidine Allergy Unknown unknown Verified 01/20/23 00:55 Sulfa (Sulfonamide Allergy Unknown unknown Verified 01/20/23 00:55 Antibiotics) tamoxifen Allergy Unknown unknown Verified 01/20/23 00:55 tetracycline Allergy Unknown unknown Verified 01/20/23 00:55 Tetracyclines Allergy Unknown unknown Verified 01/20/23 00:55 tizanidine Allergy Unknown unknown Verified 01/20/23 00:55 Review of Systems Review of Systems: Gen.: Denies fevers or chills Eyes: Denies eye pain or visual change ENT: Denies congestion Respiratory: Denies shortness of breath or cough CV: Denies chest pain or palpitations GI: Denies abdominal pain
--- NOTE | 2023-01-19 20:53 | PC.NURSE ---
pt given discharge instructions and this RN attempted to get pt out of bed to wheelchair. Pt sat up and stated she felt weak, lightheaded, and dizzy. Pt was unable to stand to get to wheelchair. Pt states at home she uses a walker, but does not feel as if she could do so at this time. Pt laid back in bed, Geneva HERR made aware.
--- NOTE | 2023-01-19 21:44 | PC.NURSE ---
Pt refused oxycodone stating it makes her sick. Provider made aware.
[2023-01-19] MEDS: MECLIZINE HCL 12.5 MG TABLET PO (21:47)
[2023-01-19] MEDS: SODIUM CHLORIDE 0.9% IV 500 ML 999 ML IV CONT (21:49)
[2023-01-19 22:13] VITALS: BP 158/89; PULSE 84; RESP 20; O2SAT 99
[2023-01-19 22:24] LABS: Appearance Urine Cloudy (Clear); Bacteria Urine 4+ /hpf; Bilirubin Urine Negative (Negative); Blood Urine 1+ (Negative); Color Urine Yellow (Yellow); Glucose Urine UA Negative (Negative); Ketones Urine Negative (Negative); Leukocyte Esterase Ur 3+ LEU/UL (Negative); Nitrate Urine Positive (Negative); Non Pathogenic Casts 0-2; Protein Urine Negative (Negative); RBC Urine 0-2 /hpf (0-2); Specific Grav Ur 1.012 (1.001-1.035); Squamous Epithelial Cell Urine Occasional /hpf (Few); Urobilinogen Urine 0.2 mg/dL (<2.0); WBC Urine 51-100 /hpf
[2023-01-19 22:43] LABS: Add Urine Microscopic? YES
--- NOTE | 2023-01-19 22:45 | PM.IMHP ---
H&P: HPI History of Present Illness Date/Time: 01/19/23 22:45 Chief Complaint: Fall Narrative: This is an 88-year-old female with past medical history significant for chronic pancreatic insufficiency, hypertension, asthma, emphysema, osteoporosis, gait disturbance, uses walker as aid. Patient resides at assisted living facility was brought to the emergency room after patient had a fall while using her walker, ground level, no loss of consciousness, patient had a fall the day before, complained of dizziness, patient landed on her face. In emergency room preliminary workup was significant for CBC with is a WBC count of 16,000, a urinalysis was significant for numerous WBCs present. Shoulder x-ray showed fracture on the left side. Patient is been admitted for further evaluation management and treatment. Review of Systems Review of Systems: Dizziness, fall, left shoulder pain. Constitutional: Constitutional: Reports chills, Reports frequent falls and Reports night sweats Eyes: Eyes: Denies change in vision ENT: Denies dysphagia and Denies odynophagia Cardiovascular: Cardiovascular: Denies chest pain, Denies leg edema, Denies radiating jaw, neck or arm pain and Denies palpitations Respiratory: Respiratory: Denies chest congestion, Denies cough and Denies dyspnea Gastrointestinal: Gastrointestinal: Denies abdominal pain, Denies dyspepsia, Denies heartburn, Denies diarrhea, Denies nausea and Denies vomiting Genitourinary: Genitourinary: Denies dysuria Musculoskeletal: Musculoskeletal: Reports arthralgias, Reports joint swelling and Reports limited range of motion (Left shoulder) Integumentary/Breasts: Skin/Breast: Denies rash Neurologic: Reports dizziness, Denies focal weakness and Denies Sensory deficit (Neuro) Psychiatric: Psychiatric: Reports no additional psychiatric complaints and Reports as per HPI Endocrine: Endocrine: Denies cold intolerance, Denies flushing, Denies heat intolerance, Denies polyphagia, Denies polydipsia and Denies palpitations Hematologic/Lymphatic: Hematologic/Lymphatic: Reports no additional hematologic/lymphatic complaints and Reports as per HPI Allergic/Immunologic: Allergic/Immunologic: Reports no additional allergic/immunologic complaints and Reports as per HPI PMFSH Past Medical History Medical History Arthritis Asthma Chronic pancreatitis Depression Emphysema of lung Fatigue History of anesthesia complications Difficulty waking up after History of cardiac disorder History of stress test HLD (hyperlipidemia) Hypertension Hypoxia ILD (interstitial lung disease) Insomnia Osteoarthritis, shoulder Osteoporosis Pneumonia Recurrent infections Rhinitis Seasonal allergies Sleep disorder Small airways disease Stomach pain URI with cough and congestion Weight gain Surgical History Surgical History History of appendectomy History of breast surgery Lt (Mastectomy) History of cholecystectomy History of hysterectomy History of knee surgery Left History of shoulder surgery Right History of surgery of uterus Family History Family History Sibling Family history of cardiovascular disease Family history of chronic obstructive pulmonary disease Diabetes mellitus Arthritis Father Family history of respiratory disorder, Onset Age: 23 Mother Family history of respiratory disorder, Onset Age: 93 Family history of chronic obstructive pulmonary disease, Onset Age: 93 Arthritis Social History Social History Social History: the patient lives at a facility called [facility]. She is and lives home alone. She stated this is a independent living. She is retired from working as a floor cashier. The patient has 3 children
[2023-01-19 23:29] VITALS: PULSE 89; RESP 20; O2SAT 97
[2023-01-20] VITALS (20 sets, daily range): BP systolic 117–139; BP diastolic 45–79; PULSE 70–88; RESP 18; TEMP 36.6–37.1; O2SAT 92–100; BMI 31.7
--- NOTE | 2023-01-20 00:29 | ADMGEN ---
This patient, Zarina Ellsworth, was admitted to Medical Room 253-. Patient/family oriented to hospital policies and general routines including ID bracelet, bed and alarms, visiting hours, pain management, procedures, bathroom and other care routines, personal items, smoking policy, room service/diet, and visiting hours. Information on how to activate the Rapid Response Team has been discussed. Patient/Family are encouraged to report perceived risks to care and to ask questions if they do not understand what they are told or what they should do.
[2023-01-20] MEDS: SODIUM CHLORIDE 0.9% IV 1,000 ML 999 ML IV CONT (01:23)
[2023-01-20] MEDS: traZODone HCL 50 MG TABLET PO ×2 (02:05→21:02)
[2023-01-20] MEDS: traMADol HCL (*CRX) 50 MG TABLET PO ×4 (02:05→21:02)
[2023-01-20] MEDS: ALBUTEROL SULFATE NEB 2.5 MG/3 ML INH INHALATION ×4 (03:23→20:19)
[2023-01-20] MEDS: IPRATROPIUM BR 0.02% INH SOLN 0.5 MG/2.5 ML VIAL INHALATION ×4 (03:23→20:20)
[2023-01-20 07:10] LABS: Anion Gap 5 mmol/L (8-16); Blood Urea Nitrogen 16 mg/dL (7-17); Carbon Dioxide 32 mmol/L (22-30); Chloride 100 mmol/L (98-107); Estimated CRCL calculation 45 ml/min; Estimated Glomerular Filt Rate > 60; Potassium 3.9 mmol/L (3.4-5.0); Sodium 137 mmol/L (137-145)
[2023-01-20 07:11] LABS: Alanine Aminotransferase 18 U/L (6-35); Albumin Level 4.1 g/dL (3.5-5.1); Alkaline Phosphatase 58 U/L (38-126); Aspartate Amino Transferase 39 U/L (14-36); Bilirubin,Total 0.6 mg/dL (0.2-1.3); Calcium 8.5 mg/dL (8.4-10.2); Glucose 99 mg/dL (65-110); Total Protein 7.6 g/dL (6.3-8.2); Troponin I < 0.012 ng/mL (0.000-0.034)
[2023-01-20 07:20] LABS: Partial Thromboplastin Time 37.9 SECONDS (22.3-36.8); Prothrombin Time 14.1 Seconds (11.1-14.7)
[2023-01-20 07:23] LABS: Basophils Percent Auto 0.4 % (0.2-1.2); Eosinophils Absolute Auto 0.2 K/mm3 (0-0.3); Eosinophils Percent Auto 1.6 % (0-4.4); Hematocrit 37.8 % (37.0-47.0); Hemoglobin 11.9 g/dL (12.0-15.0); Immature Granulocyte Absolute 0.04 K/mm3 (0.00-0.031); Immature Granulocyte Percent A 0.4 % (0-0.5); Lymphocytes Absolute Auto 2.25 K/mm3 (0.9-3.2); Lymphocytes Percent Auto 22.8 % (18.3-44.2); Mean Corpuscular HGB Conc 31.5 g/dl (32-36); Mean Corpuscular Hemoglobin 27.3 pg (26-34); Mean Corpuscular Volume 86.7 fl (80-100); Mean Platelet Volume 10.8 fl (7.4-10.4); Monocytes Percent Auto 9.6 % (2.6-8.5); Neutrophils Absolute Auto 6.4 K/mm3 (1.3-6.7); Neutrophils Percent Auto 65.2 % (45.5-73.1); Platelet Count Result 255 k/mm3 (150-375); Red Blood Count 4.36 M/mm3 (4.2-5.4); Red Cell Distribution Width 13.9 % (11.5-14.5); White Blood Count 9.9 K/mm3 (4.5-10.0)
[2023-01-20 08:11] LABS: Hematocrit 35.6 % (37.0-47.0); Hemoglobin 11.2 g/dL (12.0-15.0); Mean Corpuscular HGB Conc 31.5 g/dl (32-36); Mean Corpuscular Hemoglobin 27.3 pg (26-34); Mean Corpuscular Volume 86.6 fl (80-100); Mean Platelet Volume 10.6 fl (7.4-10.4); Platelet Count Result 228 k/mm3 (150-375); Red Blood Count 4.11 M/mm3 (4.2-5.4); Red Cell Distribution Width 14.2 % (11.5-14.5); White Blood Count 13.1 K/mm3 (4.5-10.0)
[2023-01-20 08:31] LABS: Alanine Aminotransferase 18 U/L (6-35); Albumin Level 3.9 g/dL (3.5-5.1); Alkaline Phosphatase 64 U/L (38-126); Anion Gap 4 mmol/L (8-16); Aspartate Amino Transferase 28 U/L (14-36); Bilirubin,Total 0.7 mg/dL (0.2-1.3); Blood Urea Nitrogen 16 mg/dL (7-17); Calcium 8.4 mg/dL (8.4-10.2); Carbon Dioxide 31 mmol/L (22-30); Chloride 102 mmol/L (98-107); Estimated CRCL calculation 45 ml/min; Estimated Glomerular Filt Rate > 60; Glucose 109 mg/dL (65-110); Potassium 3.9 mmol/L (3.4-5.0); Sodium 137 mmol/L (137-145)
[2023-01-20] MEDS: METOPROLOL SUCCINATE EXT REL 25 MG TABCR PO (08:48)
[2023-01-20] MEDS: PANTOPRAZOLE 40 MG TABLET PO (08:48)
[2023-01-20] MEDS: SALINE 0.65% NAS SOLN 44 ML BTL 1 SPRAY NASAL ×3 (08:48→17:09)
[2023-01-20] MEDS: ISOSORBIDE MONONITRATE 30 MG TAB.ER.24H PO (08:48)
[2023-01-20] MEDS: LIPASE/AMYLASE/PROTEASE 12,000 UNITS CAP 2 CAP PO ×4 (08:48→21:02)
[2023-01-20] MEDS: SERTRALINE HCL 50 MG TABLET PO (08:48)
[2023-01-20] MEDS: FUROSEMIDE 20 MG TABLET PO (08:48)
[2023-01-20] MEDS: ROSUVASTATIN 5 MG TABLET PO (08:48)
[2023-01-20] MEDS: LORATADINE 10 MG TABLET PO (12:21)
[2023-01-20] MEDS: FLUTICASONE/UMECLIDIN/VILANTER 100-62.5-25 MCG ELLIPTA 1 PUFF INHALATION (13:39)
--- NOTE | 2023-01-20 14:05 | PCPTNOTE ---
Pt needs Ortho consult/recommendation prior to being able to safely participate in skilled therapy. Attempted to contact hospitalist, but did not get an answer. Will follow.
--- NOTE | 2023-01-20 14:28 | PM.IMPN ---
Progress Note: A&P Assessment and Plan (1) Fall: Code(s): W19.XXXA - Unspecified fall, initial encounter Status: Acute Assessment and Plan: Patient has had multiple falls in the last couple months. Admit to regular medical floor Fall precautions PT OT consult (2) Fracture of left shoulder: Code(s): S42.92XA - Fracture of left shoulder girdle, part unspecified, initial encounter for closed fracture Status: Acute Assessment and Plan: Status post reduction Shoulder sling in place Ortho consult Pain management (3) Blunt head trauma: Code(s): S09.8XXA - Other specified injuries of head, initial encounter Status: Acute Assessment and Plan: CT of the face revealed no acute fracture Pain management (4) Gait disturbance: Code(s): R26.9 - Unspecified abnormalities of gait and mobility Status: Acute Assessment and Plan: Patient uses walker as an aid (5) Urinary tract infection: Code(s): N39.0 - Urinary tract infection, site not specified Status: Acute Assessment and Plan: UA positive for nitrates, 3+ leukocyte esterase, 51-100 wbc's and 4+ bacteria. Started on Rocephin Urine cultures pending, adjust antibiotic therapy to sensitivities (6) ILD (interstitial lung disease): Code(s): J84.9 - Interstitial pulmonary disease, unspecified Status: Acute Assessment and Plan: Unchanged Subjective Date/time seen: 01/20/23 14:28 Interval history: Patient resting in bed comfortably. Patient states that she is in a minimal amount of pain. Her face is still bothering her as well as her shoulder. Patient denies any chest pain, shortness a breath, nausea, vomiting or dizziness. She has no changes in vision or blurry vision. PT and OT to assess patient as well as Orthopedics. Patient will likely need placement. Review of Systems Review of Systems: All systems reviewed & are unremarkable except as noted in HPI and below Exam Narrative: GENERAL: Comfortable, no acute distress HENMT: moist mucous membranes EYES: EOM intact b/l NECK: no lymphadenopathy RESPIRATORY: clear to auscultation CARDIO: RRR GI: soft, nontender, bowel sounds present SKIN: Ecchymosis over left eye, forehead and nose EXTREMITIES: no edema, redness or tenderness Objective Data Vital Signs Vital Signs: Vital Signs - 24 hr 01/19/23 20:02 01/19/23 22:13 01/19/23 23:29 Temperature Pulse Rate 72 84 89 Respiratory Rate 17 20 20 Blood Pressure 133/71 158/89 H Pulse Oximetry 100 99 97 Oxygen Delivery Oxygen Flow Rate Fraction of Inspired Oxygen 01/20/23 00:46 01/20/23 00:00 01/20/23 02:05 Temperature 98.3 F Pulse Rate 84 77 Respiratory Rate 18 Blood Pressure 125/50 L Pulse Oximetry 95 96 Oxygen Delivery Nasal Cannula Oxygen Flow Rate 2 Fraction of Inspired Oxygen 01/20/23 03:16 01/20/23 03:16 01/20/23 03:28 Temperature Pulse Rate 74 74 77 Respiratory Rate 18 18 Blood Pressure Pulse Oximetry 92 Oxygen Delivery Nasal Cannula Oxygen Flow Rate 2 Fraction of Inspired Oxygen 01/20/23 04:00 01/20/23 07:29 01/20/23 07:29 Temperature Pulse Rate 78 76 76 Respiratory Rate 18 18 Blood Pressure Pulse Oximetry 95 Oxygen Delivery Nasal Cannula Oxygen Flow Rate 2 Fraction of Inspired Oxygen 28 01/20/23 06:00 01/20/23 08:48 01/20/23 08:00 Temperature 97.9 F Pulse Rate 82 71 Respiratory Rate 18 Blood Pressure 117/45 L Pulse Oximetry 96 95 Oxygen Delivery Nasal Cannula Oxygen Flow Rate 2 Fraction of Inspired Oxygen 01/20/23 13:35 01/20/23 13:47 Temperature Pulse Rate 70 74 Respiratory Rate 18 18 Blood Pressure Pulse Oximetry Oxygen Delivery Oxygen Flow Rate Fraction of Inspired Oxygen Intake/Output Intake/Output: Intake & Output 01/17/23 01/18/2301/06
--- NOTE | 2023-01-20 16:14 | PM.CNOR ---
Assessment and Plan Assessment and plan (1) Fracture of left shoulder: Qualifiers: Encounter type: initial encounter Fracture type: closed Qualified Code(s): S42.92XA - Fracture of left shoulder girdle, part unspecified, initial encounter for closed fracture Code(s): S42.92XA - Fracture of left shoulder girdle, part unspecified, initial encounter for closed fracture Status: Acute Assessment and Plan: History, exam and radiographs reviewed with the patient and family at the bedside. Radiographs of the left shoulder reveal a comminuted, minimally displaced, mildly impacted fracture predominantly through the surgical neck of the humerus, with additional involvement of the greater tuberosity. Advanced osteoarthritis of the glenohumeral joint noted as well. The fracture type and injury as well as radiographs discussed with the patient and family. Operative and nonoperative treatment options reviewed. Recommended non operative treatment. Risk of nonunion, malunion or late displacement discussed. Stiffness, pain and possible dysfunction of the joint discussed. Fracture precautions and activity restrictions reviewed. The patient verbalizes understanding. Patient fit with shoulder immobilizer. May remove for gentle pendulum exercises for hygiene purposes. Nonweightbearing left upper extremity. PT and OT for evaluation. Patient may require further rehabilitative services prior to returning to the assisted living facility. Pain control. Ice. We will arrange outpatient follow-up for repeat radiographs in approximately 6 weeks. We will continue to follow. (2) Weakness: Code(s): R53.1 - Weakness Status: Acute Assessment and Plan: PT and OT (3) Blunt head trauma: Code(s): S09.8XXA - Other specified injuries of head, initial encounter Status: Acute (4) Gait disturbance: Code(s): R26.9 - Unspecified abnormalities of gait and mobility Status: Acute Assessment and Plan: may benefit from further therapy prior to return to assisted living. (5) Knee pain: Code(s): M25.569 - Pain in unspecified knee Status: Acute Assessment and Plan: Patient with complaints of left knee pain. Ecchymosis noted. Patient has a history of a left total knee arthroplasty which was performed in [facility] several years ago. Obtain left knee radiographs to ensure no fracture or acute injury. If negative, patient may proceed with physical therapy. (6) Urinary tract infection: Code(s): N39.0 - Urinary tract infection, site not specified Status: Acute Plan Discussed case with attending physician and consulted surgeon, Dr. Luther who agrees with current plan as indicated above. No further recommendations at this time. History of Present Illness HPI Consult date: 01/20/23 Consult reason: fracture Chief complaint: UTI/Weakness/Dizziness/Shoulder FX Narrative: 88 year old female admitted status post fall at her assisted living facility. Patient was admitted for a UTI and left shoulder fracture. Orthopedic consult requested. Radiographs the left shoulder in the emergency room on 01/19 reveal a comminuted, minimally displaced, mildly impacted fracture predominantly through the surgical neck of the humerus, with additional involvement of the greater tuberosity. Advanced osteoarthritis of the glenohumeral joint noted as well. [facility] Past Medical History Medical History (Updated 01/20/23 @ 16:26 by BINH Bray) Arthritis Asthma Chronic pancreatitis Depression Emphysema of lung Fatigue History of anesthesia complications Difficulty waking up after History of cardiac disorder History of stress test HLD (hyperlipidemia) Hypertension Hypoxia ILD (interstitial lung disease) Insomnia Knee pain Osteoarthritis, shoulder Osteoporosis Pneumonia Recurrent infections Rhinitis Seasonal allergies Sleep disorder Small airways disease Stomach pain URI with
[2023-01-21] VITALS (21 sets, daily range): BP systolic 103–127; BP diastolic 56–64; PULSE 73–94; RESP 16–18; TEMP 36.6–37.1; O2SAT 92–98
[2023-01-21] MEDS: ALBUTEROL SULFATE NEB 2.5 MG/3 ML INH INHALATION ×4 (02:04→21:18)
[2023-01-21] MEDS: IPRATROPIUM BR 0.02% INH SOLN 0.5 MG/2.5 ML VIAL INHALATION ×4 (02:04→21:18)
[2023-01-21] MEDS: traMADol HCL (*CRX) 50 MG TABLET PO ×4 (05:19→21:33)
[2023-01-21 05:41] LABS: Basophils Absolute Auto 0.1 K/mm3 (0.0-0.1); Basophils Percent Auto 0.5 % (0.2-1.2); Eosinophils Absolute Auto 0.2 K/mm3 (0-0.3); Eosinophils Percent Auto 1.9 % (0-4.4); Hematocrit 32.9 % (37.0-47.0); Hemoglobin 10.1 g/dL (12.0-15.0); Immature Granulocyte Absolute 0.05 K/mm3 (0.00-0.031); Immature Granulocyte Percent A 0.5 % (0-0.5); Lymphocytes Absolute Auto 2.41 K/mm3 (0.9-3.2); Lymphocytes Percent Auto 25.1 % (18.3-44.2); Mean Corpuscular HGB Conc 30.7 g/dl (32-36); Mean Corpuscular Hemoglobin 26.8 pg (26-34); Mean Corpuscular Volume 87.3 fl (80-100); Monocytes Absolute Auto 1.2 K/mm3 (0.1-0.6); Monocytes Percent Auto 12.6 % (2.6-8.5); Neutrophils Absolute Auto 5.7 K/mm3 (1.3-6.7); Neutrophils Percent Auto 59.4 % (45.5-73.1); Platelet Count Result 205 k/mm3 (150-375); Red Blood Count 3.77 M/mm3 (4.2-5.4); Red Cell Distribution Width 14.3 % (11.5-14.5); White Blood Count 9.6 K/mm3 (4.5-10.0)
[2023-01-21 05:57] LABS: Alanine Aminotransferase 14 U/L (6-35); Albumin Level 3.6 g/dL (3.5-5.1); Alkaline Phosphatase 58 U/L (38-126); Anion Gap 6 mmol/L (8-16); Aspartate Amino Transferase 27 U/L (14-36); Bilirubin,Total 0.7 mg/dL (0.2-1.3); Blood Urea Nitrogen 13 mg/dL (7-17); Calcium 8.1 mg/dL (8.4-10.2); Carbon Dioxide 28 mmol/L (22-30); Chloride 103 mmol/L (98-107); Estimated CRCL calculation 45 ml/min; Estimated Glomerular Filt Rate > 60; Glucose 107 mg/dL (65-110); Potassium 3.6 mmol/L (3.4-5.0); Sodium 137 mmol/L (137-145)
[2023-01-21] MEDS: FLUTICASONE/UMECLIDIN/VILANTER 100-62.5-25 MCG ELLIPTA 1 PUFF INHALATION (07:24)
[2023-01-21] MEDS: LIPASE/AMYLASE/PROTEASE 12,000 UNITS CAP 2 CAP PO ×4 (08:48→21:39)
--- NOTE | 2023-01-21 08:48 | PM.PNORT ---
Progress Note: A&P Assessment and Plan (1) Fracture of left shoulder: Qualifiers: Encounter type: initial encounter Fracture type: closed Qualified Code(s): S42.92XA - Fracture of left shoulder girdle, part unspecified, initial encounter for closed fracture Code(s): S42.92XA - Fracture of left shoulder girdle, part unspecified, initial encounter for closed fracture Status: Acute Assessment and Plan: History, exam and radiographs reviewed with the patient and family at the bedside. Radiographs of the left shoulder reveal a comminuted, minimally displaced, mildly impacted fracture predominantly through the surgical neck of the humerus, with additional involvement of the greater tuberosity. Advanced osteoarthritis of the glenohumeral joint noted as well. The fracture type and injury as well as radiographs discussed with the patient and family. Operative and nonoperative treatment options reviewed. Recommended non operative treatment. Risk of nonunion, malunion or late displacement discussed. Stiffness, pain and possible dysfunction of the joint discussed. Fracture precautions and activity restrictions reviewed. The patient verbalizes understanding. Patient fit with shoulder immobilizer. May remove for gentle pendulum exercises for hygiene purposes. Nonweightbearing left upper extremity. PT and OT for evaluation. Patient may require further rehabilitative services prior to returning to the assisted living facility. Pain control. Ice. Dispo: SNF vs. [facility] for rehab prior to return to Assisted Living Okay to d/c from an orthopedic standpoint when discharge plan is in place. (2) Weakness: Code(s): R53.1 - Weakness Status: Acute Assessment and Plan: PT and OT (3) Blunt head trauma: Code(s): S09.8XXA - Other specified injuries of head, initial encounter Status: Acute (4) Gait disturbance: Code(s): R26.9 - Unspecified abnormalities of gait and mobility Status: Acute Assessment and Plan: May benefit from further therapy prior to return to assisted living. Appreciate recommendations from PT/OT. (5) Knee pain: Qualifiers: Chronicity: acute Laterality: left Qualified Code(s): M25.562 - Pain in left knee Code(s): M25.569 - Pain in unspecified knee Status: Acute Assessment and Plan: Patient with complaints of left knee pain. Ecchymosis noted. Patient has a history of a left total knee arthroplasty which was performed in [place] several years ago. Left knee radiographs negative for acute abnormalities. . (6) Urinary tract infection: Code(s): N39.0 - Urinary tract infection, site not specified Status: Acute Plan Discussed case with attending physician and consulted surgeon, Dr. Luther who agrees with current plan as indicated above. No further recommendations at this time. Subjective Subjective Date/Time Seen: 01/21/23 08:48 Interval history: Patient with continued complaints of LUE pain. Sitting in bed eating breakfast. Review of Systems Review of Systems: All systems reviewed & are unremarkable except as noted in HPI and below Exam Const: General: cooperative and average body habitus Nutritional Appearance: average body habitus Orientation/consciousness: patient oriented x3 Limitations: no limitations HENMT: Head: normal to inspection Ears: hearing grossly normal bilaterally Face/Nose/Sinus: Normal external nose present and normal facial exam Face and sinus: normal facial exam Mouth: Yes moist mucous membranes Teeth and gingiva: dentition normal Eyes: General: appearance normal, both eyes and all related structures Pupils: Equal, round and reactive pupils present EOM: EOMs intact bilaterally Neck: Neck: normal visual inspection Chest: Chest palpation & inspection: normal inspection of the chest Resp: Effort & Inspection: normal respiratory effort and able to speak in complete sentences Ca
[2023-01-21] MEDS: FUROSEMIDE 20 MG TABLET PO (08:49)
[2023-01-21] MEDS: ISOSORBIDE MONONITRATE 30 MG TAB.ER.24H PO (08:49)
[2023-01-21] MEDS: SERTRALINE HCL 50 MG TABLET PO (08:49)
[2023-01-21] MEDS: METOPROLOL SUCCINATE EXT REL 25 MG TABCR PO (08:49)
[2023-01-21] MEDS: ROSUVASTATIN 5 MG TABLET PO (08:49)
[2023-01-21] MEDS: SALINE 0.65% NAS SOLN 44 ML BTL 1 SPRAY NASAL ×3 (08:49→17:22)
[2023-01-21] MEDS: PANTOPRAZOLE 40 MG TABLET PO (08:49)
[2023-01-21 09:21] LABS: NT Pro B Type Natriuretic Pept 202 pg/mL (19.9-100)
--- NOTE | 2023-01-21 11:00 | PM.IMPN ---
Progress Note: A&P Assessment and Plan (1) Fall: Qualifiers: Encounter type: initial encounter Qualified Code(s): W19.XXXA - Unspecified fall, initial encounter Code(s): W19.XXXA - Unspecified fall, initial encounter Status: Acute Assessment and Plan: Patient has had multiple falls in the last couple months. fall precautions PT and OT orthostatic blood pressures (2) Fracture of left shoulder: Qualifiers: Encounter type: initial encounter Fracture type: closed Qualified Code(s): S42.92XA - Fracture of left shoulder girdle, part unspecified, initial encounter for closed fracture Code(s): S42.92XA - Fracture of left shoulder girdle, part unspecified, initial encounter for closed fracture Status: Acute Assessment and Plan: Status post reduction Shoulder sling in place Ortho consult Pain management weight-bearing status is nonweightbearing (3) Blunt head trauma: Qualifiers: Encounter type: initial encounter Qualified Code(s): S09.8XXA - Other specified injuries of head, initial encounter Code(s): S09.8XXA - Other specified injuries of head, initial encounter Status: Acute Assessment and Plan: CT of the face revealed no acute fracture Pain management (4) Gait disturbance: Code(s): R26.9 - Unspecified abnormalities of gait and mobility Status: Acute Assessment and Plan: Walker as an aid most likely will need rehab (5) Urinary tract infection: Code(s): N39.0 - Urinary tract infection, site not specified Status: Acute Assessment and Plan: UA positive for nitrates, 3+ leukocyte esterase, 51-100 wbc's and 4+ bacteria. Started on Rocephin Urine cultures pending, adjust antibiotic therapy to sensitivities (6) ILD (interstitial lung disease): Code(s): J84.9 - Interstitial pulmonary disease, unspecified Status: Acute Assessment and Plan: Unchanged no complaints of shortness of breath Trend respiratory status Time Spent With Patient Time: 59 minutes Time with patient: Greater than 35 minutes Subjective Date/time seen: 01/21/23 1100 Interval history: 01/21/23 1100 patient is doing okay right now. She does have a lot issues with pain and stated that her pain is 10 on 10. She also stated that the reason why she is in pain is could she was sitting for too. Currently she denies any chest pain, shortness a breath, nausea, vomiting, diarrhea constipation. She did state that her arms was some pain. She did stand move pretty well. However she does seem to be little weak as her legs seem to be wobbly when she stands. 01/20/23? 14:28 Interval history: Patient resting in bed comfortably.? Patient states that she is in a minimal amount of pain.? Her face is still bothering her as well as her shoulder.? Patient denies any chest pain, shortness a breath, nausea, vomiting or dizziness.? She has no changes in vision or blurry vision.? PT and OT to assess patient as well as Orthopedics.? Patient will likely need placement. 01/19/23? 22:45 This is an 88-year-old female with past medical history significant for chronic pancreatic insufficiency, hypertension, asthma, emphysema, osteoporosis, gait disturbance, uses walker as aid.? Patient resides at assisted living facility was brought to the emergency room after patient had a fall while using her walker, ground level, no loss of consciousness, patient had a fall the day before, complained of dizziness, patient landed on her face.? In emergency room preliminary workup was significant for CBC with is a WBC count of 16,000, a urinalysis was significant for numerous WBCs present.? Shoulder x-ray showed fracture on the left side.? Patient is been admitted for further evaluation management and treatment. Review of Systems Review of Systems: All systems reviewed & are unremar
[2023-01-21] MEDS: SENNA/DOCUSATE SODIUM TABLET 1 TAB PO (12:11)
--- NOTE | 2023-01-21 12:11 | PCPTNOTE ---
On 01/21/23, the student, [Jeanine Manriquez], provided care and completed [facility] documentation on this patient. I have reviewed the student's documentation and agree with the findings.
[2023-01-21] MEDS: LORATADINE 10 MG TABLET PO (12:12)
--- NOTE | 2023-01-21 19:00 | PC.NURSE ---
Called Cooper Holland and left message about urine culture results. Urine positive MRSA, pt taking rocephin. Left name and call back number
[2023-01-21] MEDS: VANCOMYCIN 1,250 MG/NS 250 ML 1,250 MG/250 ML BAG 166.67 MG IVPB (21:33)
[2023-01-21] MEDS: traZODone HCL 50 MG TABLET PO (23:21)
[2023-01-22] VITALS (22 sets, daily range): BP systolic 107–130; BP diastolic 48–88; PULSE 67–91; RESP 16–18; TEMP 36.4–36.9; O2SAT 94–99
[2023-01-22] MEDS: IPRATROPIUM BR 0.02% INH SOLN 0.5 MG/2.5 ML VIAL INHALATION ×4 (02:28→20:47)
[2023-01-22] MEDS: ALBUTEROL SULFATE NEB 2.5 MG/3 ML INH INHALATION ×4 (02:28→20:47)
[2023-01-22] MEDS: traMADol HCL (*CRX) 50 MG TABLET PO ×4 (04:57→20:16)
[2023-01-22 05:22] LABS: Basophils Absolute Auto 0.1 K/mm3 (0.0-0.1); Basophils Percent Auto 0.9 % (0.2-1.2); Eosinophils Absolute Auto 0.4 K/mm3 (0-0.3); Hematocrit 30.9 % (37.0-47.0); Hemoglobin 9.7 g/dL (12.0-15.0); Immature Granulocyte Absolute 0.05 K/mm3 (0.00-0.031); Immature Granulocyte Percent A 0.5 % (0-0.5); Lymphocytes Absolute Auto 2.45 K/mm3 (0.9-3.2); Lymphocytes Percent Auto 25.6 % (18.3-44.2); Mean Corpuscular HGB Conc 31.4 g/dl (32-36); Mean Corpuscular Hemoglobin 27.5 pg (26-34); Mean Corpuscular Volume 87.5 fl (80-100); Mean Platelet Volume 10.7 fl (7.4-10.4); Monocytes Percent Auto 10.6 % (2.6-8.5); Neutrophils Absolute Auto 5.6 K/mm3 (1.3-6.7); Neutrophils Percent Auto 58.4 % (45.5-73.1); Platelet Count Result 220 k/mm3 (150-375); Red Blood Count 3.53 M/mm3 (4.2-5.4); Red Cell Distribution Width 14.3 % (11.5-14.5); White Blood Count 9.6 K/mm3 (4.5-10.0)
[2023-01-22 05:41] LABS: Alanine Aminotransferase 15 U/L (6-35); Albumin Level 3.6 g/dL (3.5-5.1); Alkaline Phosphatase 58 U/L (38-126); Anion Gap 7 mmol/L (8-16); Aspartate Amino Transferase 22 U/L (14-36); Bilirubin,Total 0.5 mg/dL (0.2-1.3); Blood Urea Nitrogen 12 mg/dL (7-17); Calcium 8.3 mg/dL (8.4-10.2); Carbon Dioxide 29 mmol/L (22-30); Chloride 101 mmol/L (98-107); Estimated CRCL calculation 45 ml/min; Estimated Glomerular Filt Rate > 60; Glucose 107 mg/dL (65-110); Magnesium 2.2 mg/dL (1.6-2.3); Potassium 3.3 mmol/L (3.4-5.0); Sodium 137 mmol/L (137-145)
[2023-01-22] MEDS: FLUTICASONE/UMECLIDIN/VILANTER 100-62.5-25 MCG ELLIPTA 1 PUFF INHALATION (07:53)
[2023-01-22] MEDS: SENNA/DOCUSATE SODIUM TABLET 1 TAB PO (09:15)
[2023-01-22] MEDS: LIPASE/AMYLASE/PROTEASE 12,000 UNITS CAP 2 CAP PO ×4 (09:15→20:17)
[2023-01-22] MEDS: METOPROLOL SUCCINATE EXT REL 25 MG TABCR PO (09:16)
[2023-01-22] MEDS: ISOSORBIDE MONONITRATE 30 MG TAB.ER.24H PO (09:16)
[2023-01-22] MEDS: FUROSEMIDE 20 MG TABLET PO (09:16)
[2023-01-22] MEDS: PANTOPRAZOLE 40 MG TABLET PO (09:17)
[2023-01-22] MEDS: SERTRALINE HCL 50 MG TABLET PO (09:17)
[2023-01-22] MEDS: ROSUVASTATIN 5 MG TABLET PO (09:17)
[2023-01-22] MEDS: NITROFURANTOIN MONOHYD MACROCR 100 MG CAP PO (09:17)
[2023-01-22] MEDS: SALINE 0.65% NAS SOLN 44 ML BTL 1 SPRAY NASAL ×3 (09:18→16:59)
--- NOTE | 2023-01-22 10:09 | PCPTNOTE ---
Per PT and ANALYTICS LEAD Cooper Holland, the patient is okay to wear compression stockings.
--- NOTE | 2023-01-22 11:03 | PC.NURSE ---
Ammonia Box Tender reviewed Lynn Ritchie's (orientee) assessment findings and agree with them
--- NOTE | 2023-01-22 11:45 | PM.IMPN ---
Progress Note: A&P Assessment and Plan (1) Fall: Qualifiers: Encounter type: initial encounter Qualified Code(s): W19.XXXA - Unspecified fall, initial encounter Code(s): W19.XXXA - Unspecified fall, initial encounter Status: Acute Assessment and Plan: Patient has had multiple falls in the last couple months. fall precautions PT and OT orthostatic blood pressures (2) Fracture of left shoulder: Qualifiers: Encounter type: initial encounter Fracture type: closed Qualified Code(s): S42.92XA - Fracture of left shoulder girdle, part unspecified, initial encounter for closed fracture Code(s): S42.92XA - Fracture of left shoulder girdle, part unspecified, initial encounter for closed fracture Status: Acute Assessment and Plan: Status post reduction Shoulder sling in place Ortho consult Pain management weight-bearing status is nonweightbearing (3) Blunt head trauma: Qualifiers: Encounter type: initial encounter Qualified Code(s): S09.8XXA - Other specified injuries of head, initial encounter Code(s): S09.8XXA - Other specified injuries of head, initial encounter Status: Acute Assessment and Plan: CT of the face revealed no acute fracture Pain management (4) Gait disturbance: Code(s): R26.9 - Unspecified abnormalities of gait and mobility Status: Acute Assessment and Plan: Walker as an aid most likely will need rehab (5) Urinary tract infection: Qualifiers: Hematuria presence: without hematuria Urinary tract infection type: acute cystitis Qualified Code(s): N30.00 - Acute cystitis without hematuria Code(s): N39.0 - Urinary tract infection, site not specified Status: Acute Assessment and Plan: UA positive for nitrates, 3+ leukocyte esterase, 51-100 wbc's and 4+ bacteria. Rocephin and vancomycin, to Linazolid for a total of 5 days Urine cultures did grow MRSA Adjust antibiotic therapy to sensitivities (6) ILD (interstitial lung disease): Code(s): J84.9 - Interstitial pulmonary disease, unspecified Status: Acute Assessment and Plan: Unchanged no complaints of shortness of breath Trend respiratory status Time Spent With Patient Time: 49 minutes Time with patient: Greater than 35 minutes Subjective Date/time seen: 01/22/23 1145 Interval history: 01/22/23 114 patient is doing better today. she was sitting in the chair. She stated that she feels better sitting up. She denies any current chest pain, shortness a breath, nausea, vomiting, lightheadedness, dizziness. Patient did state that she had some palpitations overnight however they seem to resolved at this time. She has been kind of constipated will add something for her. 01/21/23 1100 patient is doing okay right now. She does have a lot issues with pain and stated that her pain is 10 on 10. She also stated that the reason why she is in pain is could she was sitting for too. Currently she denies any chest pain, shortness a breath, nausea, vomiting, diarrhea constipation. She did state that her arms was some pain. She did stand move pretty well. However she does seem to be little weak as her legs seem to be wobbly when she stands. 01/20/23? 14:28 Interval history: Patient resting in bed comfortably.? Patient states that she is in a minimal amount of pain.? Her face is still bothering her as well as her shoulder.? Patient denies any chest pain, shortness a breath, nausea, vomiting or dizziness.? She has no changes in vision or blurry vision.? PT and OT to assess patient as well as Orthopedics.? Patient will likely need placement. 01/19/23? 22:45 This is an 88-year-old female with past medical history significant for chronic pancreatic insufficiency, hypertension, asthma, emphysema, osteoporosis, gait disturbance,
[2023-01-22] MEDS: LORATADINE 10 MG TABLET PO (12:15)
[2023-01-22] MEDS: traZODone HCL 50 MG TABLET PO (20:16)
[2023-01-22] MEDS: LINEZOLID 600 MG TABLET PO (20:18)
[2023-01-23] VITALS (24 sets, daily range): BP systolic 106–138; BP diastolic 46–116; PULSE 70–96; RESP 15–20; TEMP 36.2–37.7; O2SAT 92–100
[2023-01-23] MEDS: ALBUTEROL SULFATE NEB 2.5 MG/3 ML INH INHALATION ×4 (01:49→20:45)
[2023-01-23] MEDS: IPRATROPIUM BR 0.02% INH SOLN 0.5 MG/2.5 ML VIAL INHALATION ×4 (01:50→20:45)
[2023-01-23] MEDS: FLUTICASONE/UMECLIDIN/VILANTER 100-62.5-25 MCG ELLIPTA 1 PUFF INHALATION (07:48)
[2023-01-23] MEDS: LIPASE/AMYLASE/PROTEASE 12,000 UNITS CAP 2 CAP PO ×4 (08:20→21:40)
[2023-01-23] MEDS: SENNA/DOCUSATE SODIUM TABLET 1 TAB PO (08:20)
[2023-01-23] MEDS: LINEZOLID 600 MG TABLET PO ×2 (08:21→21:40)
[2023-01-23] MEDS: ISOSORBIDE MONONITRATE 30 MG TAB.ER.24H PO (08:21)
[2023-01-23] MEDS: METOPROLOL SUCCINATE EXT REL 25 MG TABCR PO (08:21)
[2023-01-23] MEDS: FUROSEMIDE 20 MG TABLET PO (08:21)
[2023-01-23] MEDS: ROSUVASTATIN 5 MG TABLET PO (08:24)
[2023-01-23] MEDS: SERTRALINE HCL 50 MG TABLET PO (08:24)
[2023-01-23] MEDS: SALINE 0.65% NAS SOLN 44 ML BTL 1 SPRAY NASAL ×3 (08:24→17:20)
[2023-01-23] MEDS: PANTOPRAZOLE 40 MG TABLET PO (08:24)
--- NOTE | 2023-01-23 09:45 | PM.IMPN ---
Progress Note: A&P Assessment and Plan (1) Fall: Qualifiers: Encounter type: initial encounter Qualified Code(s): W19.XXXA - Unspecified fall, initial encounter Code(s): W19.XXXA - Unspecified fall, initial encounter Status: Acute Assessment and Plan: Patient has had multiple falls in the last couple months. fall precautions PT and OT orthostatic blood pressures (2) Fracture of left shoulder: Qualifiers: Encounter type: initial encounter Fracture type: closed Qualified Code(s): S42.92XA - Fracture of left shoulder girdle, part unspecified, initial encounter for closed fracture Code(s): S42.92XA - Fracture of left shoulder girdle, part unspecified, initial encounter for closed fracture Status: Acute Assessment and Plan: Status post reduction Shoulder sling in place Ortho consult Pain management weight-bearing status is nonweightbearing (3) Blunt head trauma: Qualifiers: Encounter type: initial encounter Qualified Code(s): S09.8XXA - Other specified injuries of head, initial encounter Code(s): S09.8XXA - Other specified injuries of head, initial encounter Status: Acute Assessment and Plan: CT of the face revealed no acute fracture Pain management (4) Gait disturbance: Code(s): R26.9 - Unspecified abnormalities of gait and mobility Status: Acute Assessment and Plan: Walker as an aid most likely will need rehab (5) Urinary tract infection: Qualifiers: Urinary tract infection type: acute cystitis Hematuria presence: without hematuria Qualified Code(s): N30.00 - Acute cystitis without hematuria Code(s): N39.0 - Urinary tract infection, site not specified Status: Acute Assessment and Plan: UA positive for nitrates, 3+ leukocyte esterase, 51-100 wbc's and 4+ bacteria. Rocephin and vancomycin, to Linazolid for a total of 5 days day 3 Urine cultures did grow MRSA Adjust antibiotic therapy to sensitivities (6) ILD (interstitial lung disease): Code(s): J84.9 - Interstitial pulmonary disease, unspecified Status: Acute Assessment and Plan: Unchanged no complaints of shortness of breath Trend respiratory status Time Spent With Patient Time: 35 minutes Time with patient: 25 - 35 minutes Subjective Date/time seen: 01/23/23944 Interval history: 01/23/23944 Patient is doing ok. She is laying in bed stating that she is just having a hard time getting comfortable. She denies any current pain. She also denies any chest pain, shortness of breath, nausea, vomiting, diarrhea, or constipation. She does appear to be feeling better. She was very chatty and talking about her kids. 01/22/23 1145 patient is doing better today. she was sitting in the chair. She stated that she feels better sitting up. She denies any current chest pain, shortness a breath, nausea, vomiting, lightheadedness, dizziness. Patient did state that she had some palpitations overnight however they seem to resolved at this time. She has been kind of constipated will add something for her. 01/21/23 1100 patient is doing okay right now. She does have a lot issues with pain and stated that her pain is 10 on 10. She also stated that the reason why she is in pain is could she was sitting for too. Currently she denies any chest pain, shortness a breath, nausea, vomiting, diarrhea constipation. She did state that her arms was some pain. She did stand move pretty well. However she does seem to be little weak as her legs seem to be wobbly when she stands. 01/20/23? 14:28 Interval history: Patient resting in bed comfortably.? Patient states that she is in a minimal amount of pain.? Her face is still bothering her as well as her shoulder.? Patient denies any chest pain, shortness a breath, nausea, vomiting o
[2023-01-23] MEDS: traMADol HCL (*CRX) 50 MG TABLET PO ×2 (12:20→21:39)
--- NOTE | 2023-01-23 12:34 | PCPTNOTE ---
On 01/23/23, the student, [Jeanine Manriquez], provided care and completed [facility] documentation on this patient. I have reviewed the student's documentation and agree with the findings.
[2023-01-23] MEDS: traZODone HCL 50 MG TABLET PO (21:40)
[2023-01-24] VITALS (24 sets, daily range): BP systolic 109–148; BP diastolic 47–94; PULSE 66–105; RESP 16–19; TEMP 36.2–36.7; O2SAT 94–100
[2023-01-24] MEDS: ALBUTEROL SULFATE NEB 2.5 MG/3 ML INH INHALATION ×4 (02:30→21:26)
[2023-01-24] MEDS: IPRATROPIUM BR 0.02% INH SOLN 0.5 MG/2.5 ML VIAL INHALATION ×4 (02:30→21:26)
[2023-01-24 06:15] LABS: Basophils Absolute Auto 0.1 K/mm3 (0.0-0.1); Basophils Percent Auto 0.7 % (0.2-1.2); Eosinophils Absolute Auto 0.5 K/mm3 (0-0.3); Eosinophils Percent Auto 6.4 % (0-4.4); Hematocrit 30.6 % (37.0-47.0); Hemoglobin 9.8 g/dL (12.0-15.0); Immature Granulocyte Absolute 0.05 K/mm3 (0.00-0.031); Immature Granulocyte Percent A 0.6 % (0-0.5); Lymphocytes Absolute Auto 1.58 K/mm3 (0.9-3.2); Lymphocytes Percent Auto 19.7 % (18.3-44.2); Mean Corpuscular Hemoglobin 28.2 pg (26-34); Mean Corpuscular Volume 88.2 fl (80-100); Mean Platelet Volume 11.1 fl (7.4-10.4); Monocytes Absolute Auto 0.9 K/mm3 (0.1-0.6); Monocytes Percent Auto 11.2 % (2.6-8.5); Neutrophils Absolute Auto 4.9 K/mm3 (1.3-6.7); Neutrophils Percent Auto 61.4 % (45.5-73.1); Platelet Count Result 238 k/mm3 (150-375); Red Blood Count 3.47 M/mm3 (4.2-5.4); Red Cell Distribution Width 14.2 % (11.5-14.5)
[2023-01-24 06:30] LABS: Alanine Aminotransferase 14 U/L (6-35); Albumin Level 3.7 g/dL (3.5-5.1); Alkaline Phosphatase 54 U/L (38-126); Anion Gap 7 mmol/L (8-16); Aspartate Amino Transferase 26 U/L (14-36); Bilirubin,Total 0.7 mg/dL (0.2-1.3); Blood Urea Nitrogen 11 mg/dL (7-17); Calcium 8.2 mg/dL (8.4-10.2); Carbon Dioxide 27 mmol/L (22-30); Chloride 103 mmol/L (98-107); Estimated CRCL calculation 51 ml/min; Estimated Glomerular Filt Rate > 60; Glucose 99 mg/dL (65-110); Magnesium 2.4 mg/dL (1.6-2.3); Potassium 3.3 mmol/L (3.4-5.0); Sodium 137 mmol/L (137-145)
[2023-01-24] MEDS: FLUTICASONE/UMECLIDIN/VILANTER 100-62.5-25 MCG ELLIPTA 1 PUFF INHALATION (07:10)
--- NOTE | 2023-01-24 08:30 | PM.IMPN ---
Progress Note: A&P Assessment and Plan (1) Fall: Qualifiers: Encounter type: initial encounter Qualified Code(s): W19.XXXA - Unspecified fall, initial encounter Code(s): W19.XXXA - Unspecified fall, initial encounter Status: Acute Assessment and Plan: Patient has had multiple falls in the last couple months. fall precautions PT and OT orthostatic blood pressures laying 110/47, sitting 138/94, standing 138/116 (2) Fracture of left shoulder: Qualifiers: Encounter type: initial encounter Fracture type: closed Qualified Code(s): S42.92XA - Fracture of left shoulder girdle, part unspecified, initial encounter for closed fracture Code(s): S42.92XA - Fracture of left shoulder girdle, part unspecified, initial encounter for closed fracture Status: Acute Assessment and Plan: Status post reduction Shoulder sling in place Ortho consult Pain management weight-bearing status is nonweightbearing (3) Blunt head trauma: Qualifiers: Encounter type: initial encounter Qualified Code(s): S09.8XXA - Other specified injuries of head, initial encounter Code(s): S09.8XXA - Other specified injuries of head, initial encounter Status: Acute Assessment and Plan: CT of the face revealed no acute fracture Pain management (4) Gait disturbance: Code(s): R26.9 - Unspecified abnormalities of gait and mobility Status: Acute Assessment and Plan: Walker as an aid most likely will need rehab (5) Urinary tract infection: Qualifiers: Urinary tract infection type: acute cystitis Hematuria presence: without hematuria Qualified Code(s): N30.00 - Acute cystitis without hematuria Code(s): N39.0 - Urinary tract infection, site not specified Status: Acute Assessment and Plan: UA positive for nitrates, 3+ leukocyte esterase, 51-100 wbc's and 4+ bacteria. Rocephin and vancomycin, to Linazolid for a total of 5 days day 3 Urine cultures did grow MRSA Adjust antibiotic therapy to sensitivities (6) ILD (interstitial lung disease): Code(s): J84.9 - Interstitial pulmonary disease, unspecified Status: Acute Assessment and Plan: Unchanged no complaints of shortness of breath Trend respiratory status Plan Awaiting rehab decisions, also constipation addressed and medications added Time Spent With Patient Time: 38 minutes Time with patient: Greater than 35 minutes Subjective Date/time seen: 01/24/23 0830 Interval history: 01/24/23 0830 Patient is doing ok. She did not sleep well last night. She did state that she has palpitations however follows up with I have congestive heart failure. She denies any current chest pain or palpitations. She stated that she still has not had a BM, and stated that she does have this periodically and has to self disimpact and usually a baseball is removed. She denies any nausea, vomiting, diarrhea, or abdominal pain. 01/23/23 0945 Patient is doing ok. She is laying in bed stating that she is just having a hard time getting comfortable. She denies any current pain. She also denies any chest pain, shortness of breath, nausea, vomiting, diarrhea, or constipation. She does appear to be feeling better. She was very chatty and talking about her kids. 01/22/23 1145 patient is doing better today. she was sitting in the chair. She stated that she feels better sitting up. She denies any current chest pain, shortness a breath, nausea, vomiting, lightheadedness, dizziness. Patient did state that she had some palpitations overnight however they seem to resolved at this time. She has been kind of constipated will add something for her. 01/21/23 1100 patient is doing okay right now. She does have a lot issues with pain and stated that her pain is 10 on 10. She also stated kira
[2023-01-24] MEDS: ROSUVASTATIN 5 MG TABLET PO (08:47)
[2023-01-24] MEDS: SERTRALINE HCL 50 MG TABLET PO (08:47)
[2023-01-24] MEDS: SENNA/DOCUSATE SODIUM TABLET 1 TAB PO (08:47)
[2023-01-24] MEDS: FUROSEMIDE 20 MG TABLET PO (08:47)
[2023-01-24] MEDS: LIPASE/AMYLASE/PROTEASE 12,000 UNITS CAP 2 CAP PO ×4 (08:47→20:15)
[2023-01-24] MEDS: METOPROLOL SUCCINATE EXT REL 25 MG TABCR PO (08:47)
[2023-01-24] MEDS: ISOSORBIDE MONONITRATE 30 MG TAB.ER.24H PO (08:47)
[2023-01-24] MEDS: PANTOPRAZOLE 40 MG TABLET PO (08:47)
[2023-01-24] MEDS: LINEZOLID 600 MG TABLET PO ×2 (08:47→20:16)
[2023-01-24] MEDS: SALINE 0.65% NAS SOLN 44 ML BTL 1 SPRAY NASAL ×3 (08:48→16:29)
[2023-01-24] MEDS: traMADol HCL (*CRX) 50 MG TABLET PO ×2 (08:51→23:07)
--- NOTE | 2023-01-24 09:06 | PCPTNOTE ---
Attempted to see patient for PT, however patient refused. Patient reported she was still eating breakfast and did not want to get up until her pain medication starts working.
[2023-01-24] MEDS: LORATADINE 10 MG TABLET PO (12:07)
--- NOTE | 2023-01-24 16:10 | PCCCNOTE ---
On 01/24/23, the student, Latasha House, provided care and completed [facility] documentation on this patient. I have reviewed the student's documentation and agree with the findings.
[2023-01-24] MEDS: traZODone HCL 50 MG TABLET PO (23:07)
[2023-01-25] VITALS (12 sets, daily range): BP systolic 107–117; BP diastolic 54–55; PULSE 66–90; RESP 18–20; TEMP 36.7–37; O2SAT 96–100
[2023-01-25] MEDS: guaiFENesin/DEXTROMETHORPHAN 10 ML UDC PO (00:21)
[2023-01-25 05:41] LABS: Basophils Absolute Auto 0.1 K/mm3 (0.0-0.1); Basophils Percent Auto 0.8 % (0.2-1.2); Eosinophils Absolute Auto 0.6 K/mm3 (0-0.3); Eosinophils Percent Auto 6.6 % (0-4.4); Hematocrit 32.7 % (37.0-47.0); Hemoglobin 10.5 g/dL (12.0-15.0); Immature Granulocyte Absolute 0.06 K/mm3 (0.00-0.031); Immature Granulocyte Percent A 0.7 % (0-0.5); Lymphocytes Absolute Auto 1.93 K/mm3 (0.9-3.2); Mean Corpuscular HGB Conc 32.1 g/dl (32-36); Mean Corpuscular Volume 87.2 fl (80-100); Mean Platelet Volume 10.8 fl (7.4-10.4); Monocytes Absolute Auto 0.9 K/mm3 (0.1-0.6); Monocytes Percent Auto 10.2 % (2.6-8.5); Neutrophils Absolute Auto 5.6 K/mm3 (1.3-6.7); Neutrophils Percent Auto 60.7 % (45.5-73.1); Platelet Count Result 280 k/mm3 (150-375); Red Blood Count 3.75 M/mm3 (4.2-5.4); Red Cell Distribution Width 14.3 % (11.5-14.5); White Blood Count 9.2 K/mm3 (4.5-10.0)
[2023-01-25 05:54] LABS: Alanine Aminotransferase 18 U/L (6-35); Alkaline Phosphatase 63 U/L (38-126); Anion Gap 6 mmol/L (8-16); Aspartate Amino Transferase 27 U/L (14-36); Bilirubin,Total 0.6 mg/dL (0.2-1.3); Blood Urea Nitrogen 10 mg/dL (7-17); Calcium 8.6 mg/dL (8.4-10.2); Carbon Dioxide 32 mmol/L (22-30); Chloride 103 mmol/L (98-107); Estimated CRCL calculation 45 ml/min; Estimated Glomerular Filt Rate > 60; Glucose 98 mg/dL (65-110); Magnesium 2.3 mg/dL (1.6-2.3); Potassium 3.7 mmol/L (3.4-5.0); Sodium 141 mmol/L (137-145)
[2023-01-25] MEDS: ALBUTEROL SULFATE NEB 2.5 MG/3 ML INH INHALATION (08:44)
[2023-01-25] MEDS: SALINE 0.65% NAS SOLN 44 ML BTL 1 SPRAY NASAL ×3 (08:45→16:44)
[2023-01-25] MEDS: IPRATROPIUM BR 0.02% INH SOLN 0.5 MG/2.5 ML VIAL INHALATION ×2 (08:45→13:39)
[2023-01-25] MEDS: FLUTICASONE/UMECLIDIN/VILANTER 100-62.5-25 MCG ELLIPTA 1 PUFF INHALATION (08:45)
[2023-01-25] MEDS: METOPROLOL SUCCINATE EXT REL 25 MG TABCR PO (08:47)
[2023-01-25] MEDS: SERTRALINE HCL 50 MG TABLET PO (08:47)
[2023-01-25] MEDS: LIPASE/AMYLASE/PROTEASE 12,000 UNITS CAP 2 CAP PO ×3 (08:47→16:44)
[2023-01-25] MEDS: ISOSORBIDE MONONITRATE 30 MG TAB.ER.24H PO (08:47)
[2023-01-25] MEDS: FUROSEMIDE 20 MG TABLET PO (08:47)
[2023-01-25] MEDS: PANTOPRAZOLE 40 MG TABLET PO (08:48)
[2023-01-25] MEDS: LACTULOSE 20 GM/30 ML UDC PO (08:48)
[2023-01-25] MEDS: LINEZOLID 600 MG TABLET PO (08:48)
[2023-01-25] MEDS: ROSUVASTATIN 5 MG TABLET PO (08:48)
[2023-01-25] MEDS: LORATADINE 10 MG TABLET PO (11:31)
--- NOTE | 2023-01-25 14:00 | PM.DS ---
DS: Admitting Diagnosis Discharge Date 01/25/23 1400 Admitting Diagnosis Fall, left shoulder fracture, UTI DS: Discharge Diagnosis Discharge Diagnosis (1) Fall: Qualifiers: Encounter type: initial encounter Qualified Code(s): W19.XXXA - Unspecified fall, initial encounter Code(s): W19.XXXA - Unspecified fall, initial encounter Status: Acute Assessment and Plan: Patient has had multiple falls in the last couple months. fall precautions PT and OT orthostatic blood pressures laying 110/47, sitting 138/94, standing 138/116 (2) Fracture of left shoulder: Qualifiers: Encounter type: initial encounter Fracture type: closed Qualified Code(s): S42.92XA - Fracture of left shoulder girdle, part unspecified, initial encounter for closed fracture Code(s): S42.92XA - Fracture of left shoulder girdle, part unspecified, initial encounter for closed fracture Status: Acute Assessment and Plan: Status post reduction Shoulder sling in place Ortho consult Pain management weight-bearing status is nonweightbearing (3) Blunt head trauma: Qualifiers: Encounter type: initial encounter Qualified Code(s): S09.8XXA - Other specified injuries of head, initial encounter Code(s): S09.8XXA - Other specified injuries of head, initial encounter Status: Acute Assessment and Plan: CT of the face revealed no acute fracture Pain management (4) Gait disturbance: Code(s): R26.9 - Unspecified abnormalities of gait and mobility Status: Acute Assessment and Plan: Walker as an aid most likely will need rehab (5) Urinary tract infection: Qualifiers: Hematuria presence: without hematuria Urinary tract infection type: acute cystitis Qualified Code(s): N30.00 - Acute cystitis without hematuria Code(s): N39.0 - Urinary tract infection, site not specified Status: Acute Assessment and Plan: UA positive for nitrates, 3+ leukocyte esterase, 51-100 wbc's and 4+ bacteria. Rocephin and vancomycin, to Linazolid for a total of 5 days day 3 Urine cultures did grow MRSA Adjust antibiotic therapy to sensitivities (6) ILD (interstitial lung disease): Code(s): J84.9 - Interstitial pulmonary disease, unspecified Status: Acute Assessment and Plan: Unchanged no complaints of shortness of breath Trend respiratory status Plan Awaiting rehab decisions, also constipation addressed and medications added DS: Summary Hospital Course Hospital Course: Patient 88-year-old female with a past medical history of pancreatic insufficiency, hypertension, asthma, emphysema, osteoporosis, gait disturbances who presented to the ED after a fall. Patient has had multiple falls in the last couple days. She did state that she has been dizzy and landed on her face. Patient over PT and OT and has been doing well. Fracture of the left shoulder was noted and Ortho was consulted. Patient was placed in a sling. Pain is been managed with tramadol. urine did come back showing a UTI and Rocephin was changed to linezolid. Urine culture did grow MRSA. Currently patient has been doing well and is ready to go to rehab. Patient stated that she just would like to go to rehab to get back home. Currently she denies any chest pain, shortness a breath, nausea, vomiting, diarrhea constipation. Labs and vital signs are stable patient is stable for discharge at this time. Status at Discharge Functional status at discharge: uses cane/walker Overall status at discharge: patient is progressing back to baseline Time Spent with Patient Time attestation: Total time spent providing and/or coordinating discharge services: 51 minutes Time spent: Greater than 30 minutes Specific discharge activities: Diagnostic testing, chart review, developing a treatment plan, education,
[2023-01-25] MEDS: traMADol HCL (*CRX) 50 MG TABLET PO (14:11)
--- NOTE | 2023-01-25 14:12 | PC.NURSE ---
Ultram given per [employer] COMMISSIONS ANALYST for generalized pain.
[2023-01-25 17:05] LABS: EDCOVIDSCREEN Negative (Negative)
== END 2023-01-25 19:05 | DRG 563 ==
LOC: ANHED 19:33 → ANH2MED 23:20
PROVIDERS: Internal Medicine Critical Care Medicine; Admitting Provider Internal Medicine; Emergency Provider Physician Assistant; PCP Nurse Practitioner Family; Visit Provider Nurse Practitioner
DX: S42.212A Unspecified displaced fracture of surgical neck of left humerus, initial encounter for closed fracture (principal); N39.0 Urinary tract infection, site not specified; J84.9 Interstitial pulmonary disease, unspecified; B95.62 Methicillin resistant Staphylococcus aureus infection as the cause of diseases classified elsewhere; Z20.822 Contact with and (suspected) exposure to COVID-19; S09.8XXA Other specified injuries of head, initial encounter; W18.39XA Other fall on same level, initial encounter; R26.9 Unspecified abnormalities of gait and mobility; I10 Essential (primary) hypertension; J43.9 Emphysema, unspecified; M81.0 Age-related osteoporosis without current pathological fracture; M19.90 Unspecified osteoarthritis, unspecified site; E78.5 Hyperlipidemia, unspecified; Z90.49 Acquired absence of other specified parts of digestive tract; Z90.710 Acquired absence of both cervix and uterus; Z96.652 Presence of left artificial knee joint
CPT/HCPCS: 23605; 36415; 70450; 70486; 70496; 70498; 71045; 72125; 73030; 73562; 80053; 81001; 83735; 83880; 84484; 85025; 85027; 85610; 85730; 87086; 87147; 87186; 87426; 93005; 94640; 96360; 97110; 97116; 97161; 97165; 97530; 97535; 97542; 99285; A4565; A9270; C9803; J0696; J3370; J7030; J7040; Q9967

== ENCOUNTER → 2023-04-28 14:41 | Outpatient (CLI) | payer MEDICARE, SELFPAY ==
--- NOTE | ~2023-04-28 | XR_ITS ---
XR thoracic spine 2V DATE: 04/28/2023 15:21 INDICATION: Thoracic back pain TECHNIQUE: AP, lateral, swimmer views COMPARISON: 04/27/2014 thoracic spine FINDINGS: Diffuse osteopenia. Minimal anterolisthesis at C2-3. Moderately severe degenerative disc disease at C3-4 and C4-5 and sev ere degenerative disc disease at C5-6 and C6-7. The thoracic pedicles appear intact. There is mild thoracic dextroscoliosis. No fracture or dislocati on or bone destruction is detected. No paraspinal soft tissue thickening is noted. There is degenerative disc space narrowing and spurring throughout the thoracic spine. There is extensive thoracic aortic calcification. Glenohumeral joint replacement is noted. IMPRESSION: Diffuse osteopenia Thoracic dextro scoliosis Degenerative disc disease of the thoracic spine Prominent cervical spondylosis Reviewed, dictated and finalized at location A.
== END ==
PROVIDERS: PCP Nurse Practitioner Family; Visit Provider Nurse Practitioner Family
DX: M85.89 Other specified disorders of bone density and structure, multiple sites (principal); M41.84 Other forms of scoliosis, thoracic region; M51.34 Other intervertebral disc degeneration, thoracic region; M43.02 Spondylolysis, cervical region
CPT/HCPCS: 72070

== ENCOUNTER → 2023-05-10 13:06 | Outpatient (CLI) | payer MEDICARE, SELFPAY ==
--- NOTE | ~2023-05-10 | MR_ITS ---
EXAMINATION: MR lumbar spine wo con DATE: 05/10/2023 13:45 INDICATION: Other low back pain. TECHNIQUE: Magnetic resonance imaging (MRI) of the lumbar spine was performed without intravenous con trast. Sequences included sagittal T2-weighted FSE, sagittal T2-weighted FS FSE, sagittal T1-weighted FSE, and axial T2-weighted FSE. COMPARISON: Lumbar spine MRI 10/18/2018 FINDINGS: There is 16 degrees levoscoliosis of lumbar spine. There is mild chronic anterior wedging o f T11 vertebral body. There is severely decreased disc height from T10-T11 through L4-L5. The distal spinal cord signal intensity is normal. The conus medullaris is at L1. The following disc levels are specifically discussed: L1-L2: The disc is bulging. There is moderate right and severe left facet joint osteoarthritis. There is mild right and moderate left neural foraminal stenosis. There is mild central canal stenosis. L2-L3: The disc is bulging. There is severe right and moderate left facet joint osteoarthritis. There is moderate right and mild left neural foraminal stenosis. There is mild central canal stenosis. L3-L4: The disc is bulging. There is severe bilateral facet joint osteoarthritis. There is mild right and moderate left neural foraminal stenosis. There is mild central canal stenosis. L4-L5: The disc is bulging. There is severe bilateral facet joint osteoarthritis. There is moderate b ilateral neural foraminal stenosis. There is mild central canal stenosis. L5-S1: The disc is bulging. There is severe bilateral facet joint osteoarthritis. There is mild bilat eral neural foraminal stenosis. There is mild central canal stenosis. IMPRESSION: 1. Severe lumbar spondylosis, stable from 10/18/2018. 2. Lumbar levoscoliosis. Reviewed, dictated and finalized at location E.
== END ==
PROVIDERS: PCP Nurse Practitioner Family; Visit Provider Nurse Practitioner Family
DX: M54.59 Other low back pain (principal); M43.06 Spondylolysis, lumbar region; M41.86 Other forms of scoliosis, lumbar region
CPT/HCPCS: 72148

== ENCOUNTER 2023-07-25 12:52 | Outpatient (CLI) | payer MEDICARE, SELFPAY ==
--- NOTE | ~2023-07-25 | CT_ITS ---
CT Scan of the Chest without Contrast: Clinical Indication: Pneumonia, chest pain Technique: Contiguous sections were acquired throughout the chest without intravenous contrast. Dose reduction technique was used on this scan by utilizing automated exposure control and iterative recon struction technique. The dose-length product (DLP) was 201.81 mGy-cm. COMPARISON: 02/17/2021 Findings: There is no evidence of any significant mediastinal, hilar or axillary lymphadenopathy. Atherosclerot ic calcifications of the aorta and coronary arteries are noted. There is no evidence of pleural or pericardial effusion. There is extensive subpleural reticulation with peripherally predominant interstitial thickening and patchy groundglass opacity. There is mild bibasilar bronchiectasis. Images through the upper abdomen reveal pneumobilia, and probable cholecystectomy.. Impression: Findings consistent with chronic interstitial pulmonary disease, as detailed above, progressed from p rior exam. Reviewed, dictated and finalized at location . 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
== END 2023-07-25 12:53 | disposition home or self-care (01) ==
PROVIDERS: PCP Nurse Practitioner Family; Visit Provider Physician Assistant
DX: J84.9 Interstitial pulmonary disease, unspecified (principal)
CPT/HCPCS: 71250; 94375; 94618; 94726; 94729

== ENCOUNTER 2023-07-25 12:54 | Outpatient (CLI) | payer MEDICARE, SELFPAY ==
[2023-07-25 13:10] VITALS: PULSE 72; PULSE 88; O2SAT 87; O2SAT 96
[2023-07-25 13:15] VITALS: PULSE 89; O2SAT 87
[2023-07-25 13:20] VITALS: PULSE 89; O2SAT 92
[2023-07-25 13:35] VITALS: PULSE 73; O2SAT 93
--- NOTE | 2023-07-25 14:31 | HOMEO2EVAL ---
Evaluation was performed at [facility] Home Oxygen Evaluation RC: Home Oxygen (O2) Evaluation Start: 07/25/23 14:28 Freq: Status: Active Protocol: RPE Activity Type Activity Date Activity User E-sign Co-sign Detail Recorded Client Recorded Date Recorded By Document 07/25/23 13:10 PK [email or web address]_012 07/25/23 14:30 PK Document 07/25/23 13:10 PK [email or web address] 07/25/23 14:30 PK Document 07/25/23 13:15 PK [email or web address] 07/25/23 14:30 PK Document 07/25/23 13:20 PK [email or web address] 07/25/23 14:30 PK Document 07/25/23 13:35 PK [email or web address] 07/25/23 14:30 PK 07/25/23 07/25/23 07/25/23 13:10 13:10 13:15 Home O2 Evaluation [Oxygen] -Test Phase Resting Exercise Exercise -Oxygen Delivery Room Air Room Air Nasal Cannula -Oxygen Flow Rate (L/min) 1 [Pulse Oximetry] -Pulse Oximetry (90-100 %) 96 87 L 87 L [Pulse Rate] -Pulse Rate (60-100 beats/min) 72 88 89 [Charges] -Evaluation Charges O2 Evaluation by Pulmonary 07/25/23 07/25/23 13:20 13:35 Home O2 Evaluation [Oxygen] -Test Phase Exercise Resting -Oxygen Delivery Room Air -Oxygen Flow Rate (L/min) 2 [Pulse Oximetry] -Pulse Oximetry (90-100 %) 92 93 [Pulse Rate] -Pulse Rate (60-100 beats/min) 89 73 [Charges] -Evaluation Charges
--- NOTE | 2023-07-25 14:55 | WPDPFTINT ---
PFT Procedure Performed PFT Procedure Performed Plethysmography (Lung Vol) Diffusing Cap (DLCO) Flow Vol Loop Spirometry w/o Bronchodil PFT Interpretation This is a pulmonary function test with spirometry, plethysmography and diffusing capacity. The test was performed and results interpreted in accordance with the 2019 and 2005 ATS/ERS Task Force guidelines respectively using the Global Lung Function Initiative-2012 reference equations. Patient demonstrated good effort and cooperation. Reproducibility criteria were met. The quality of the spirometry maneuver was Grade B. of note, patient cough continuous EEG throughout the entire test. Post flow volume loops were not performed. Patient states that she is allergic to albuterol so a bronchodilator was not administered. Findings: Spirometry: The contour the inspiratory and expiratory flow tracing are normal. The FVC is 1.96 L, 98% predicted. The FEV1 is 1.67 L, 111% predicted. The FEV1: FVC ratio is 85%. Plethysmography: The total lung capacity is 3.51 L, 79% predicted. The FRC is 2.07 L, 81% predicted. The residual volume is 1.54 L, 66% predicted. Diffusing capacity: The diffusing capacity unadjusted for hemoglobin and carboxyhemoglobin is 8.3, 49% predicted. The diffusing capacity adjusted for alveolar volume is 2.79, 67% predicted. Impression: The spirometry is normal without evidence of an obstructive abnormality. The total lung capacity and functional residual capacity are normal with a decreased residual volume. This is an abnormal but nonspecific lung volume pattern. The diffusing capacity unadjusted for hemoglobin and carboxyhemoglobin is moderately decreased and remains mildly decreased when adjusted for alveolar volume. There are no prior studies for comparison
== END 2023-07-25 12:55 | disposition home or self-care (01) ==
PROVIDERS: PCP Nurse Practitioner Family; Visit Provider Physician Assistant
DX: J18.9 Pneumonia, unspecified organism (principal)
CPT/HCPCS: 94375; 94618; 94726; 94729

== ENCOUNTER 2023-09-20 12:24 | Outpatient (CLI) | payer MEDICARE, SELFPAY ==
[2023-09-20 13:46] LABS: Anion Gap 4 mmol/L (8-16); Blood Urea Nitrogen 14 mg/dL (7-17); Calcium 9.1 mg/dL (8.4-10.2); Carbon Dioxide 34 mmol/L (22-30); Chloride 101 mmol/L (98-107); Estimated Glomerular Filt Rate > 60; Glucose 95 mg/dL (65-110); Potassium 3.9 mmol/L (3.4-5.0); Sodium 139 mmol/L (137-145)
== END 2023-09-20 12:25 | disposition home or self-care (01) ==
PROVIDERS: PCP Nurse Practitioner Family; Visit Provider Internal Medicine Cardiovascular Disease
DX: I50.33 Acute on chronic diastolic (congestive) heart failure (principal)
CPT/HCPCS: 36415; 80048

== ENCOUNTER 2023-11-02 14:28 | Outpatient (CLI) | payer MEDICARE, SELFPAY ==
[2023-11-02 15:19] LABS: Anion Gap 6 mmol/L (4-12); Blood Urea Nitrogen 18 mg/dL (7-17); Carbon Dioxide 32 mmol/L (22-30); Chloride 101 mmol/L (98-107); Estimated Glomerular Filt Rate 47; Glucose 102 mg/dL (65-110); Potassium 4.2 mmol/L (3.4-5.0); Sodium 139 mmol/L (137-145)
== END 2023-11-02 14:29 | disposition home or self-care (01) ==
LOC: ANHLAB 14:32
PROVIDERS: PCP Nurse Practitioner Family; Visit Provider Internal Medicine Cardiovascular Disease
DX: I25.119 Atherosclerotic heart disease of native coronary artery with unspecified angina pectoris (principal); I50.32 Chronic diastolic (congestive) heart failure
CPT/HCPCS: 36415; 80048

== ENCOUNTER 2023-12-31 20:41 | Emergency (ER) | payer MEDICARE, SELFPAY ==
[2023-12-31] VITALS (10 sets, daily range): BP systolic 125–144; BP diastolic 51–73; PULSE 63–77; RESP 16–29; TEMP 36.3; O2SAT 94–99
--- NOTE | ~2023-12-31 | CT_ITS ---
EXAMINATION: CT abdomen pelvis w con DATE: 12/31/2023 22:19 INDICATION: Upper abdominal pain. Blood in stool. TECHNIQUE: Computed tomography (CT) of the abdomen and pelvis was performed with 100 mL Omnipaque 350 intravenous contrast. Automated exposure control and iterative reconstruction technique were employe d. The dose-length product was 693.85 mGy-cm. COMPARISON: CT abdomen and pelvis 12/14/17 FINDINGS: The visualized portions of the lung bases demonstrate peripheral septal thickening and bron chiectasis, consistent with chronic interstitial lung disease. No pleural effusion. The heart size is normal. There are coronary artery calcifications. No pericardial effusion. There is chronic moderate intrahepatic biliary duct dilatation. There is chronic pneumobilia, likely secondary sphincterotomy. The common duct is chronic dilated measuring 16 mm. These findings are likely not clinically signifi cant given the normal liver function tests. The gallbladder is absent. There are calcifications in th e pancreas with chronic duct dilatation in the pancreatic tail, consistent with chronic pancreatitis. The spleen and adrenal glands are normal. There is cortical thinning in the kidneys. There is divert iculosis of the colon without evidence of diverticulitis. There are no dilated loops of bowel. The ap pendix is not visualized. There is calcified atherosclerosis of the aorta and many of the other arter ies. There are no pathologically enlarged lymph nodes. There is no free intraperitoneal fluid. There is severe thoracic and lumbar spondylosis. There is mild chronic anterior wedging of multiple vertebr al bodies. IMPRESSION: 1. No etiology for the patient's symptoms. Reviewed, dictated and finalized at location E.
[2023-12-31 20:56] LABS: Basophils Absolute Auto 0.1 K/mm3 (0.0-0.1); Basophils Percent Auto 0.5 % (0.2-1.2); Eosinophils Absolute Auto 0.2 K/mm3 (0-0.3); Eosinophils Percent Auto 1.8 % (0-4.4); Hematocrit 38.9 % (37.0-47.0); Hemoglobin 12.6 g/dL (12.0-15.0); Immature Granulocyte Absolute 0.04 K/mm3 (0.00-0.031); Immature Granulocyte Percent A 0.4 % (0-0.5); Mean Corpuscular HGB Conc 32.4 g/dl (32-36); Mean Corpuscular Hemoglobin 28.6 pg (26-34); Mean Corpuscular Volume 88.4 fl (80-100); Mean Platelet Volume 10.4 fl (7.4-10.4); Monocytes Absolute Auto 0.9 K/mm3 (0.1-0.6); Monocytes Percent Auto 8.4 % (2.6-8.5); Neutrophils Absolute Auto 6.3 K/mm3 (1.3-6.7); Neutrophils Percent Auto 57.9 % (45.5-73.1); Platelet Count Result 249 k/mm3 (150-375); Red Cell Distribution Width 13.3 % (11.5-14.5)
[2023-12-31 21:12] LABS: Alanine Aminotransferase 16 U/L (6-35); Albumin Level 4.2 g/dL (3.5-5.1); Alkaline Phosphatase 69 U/L (38-126); Anion Gap 6 mmol/L (4-12); Aspartate Amino Transferase 28 U/L (14-36); Bilirubin,Total 0.4 mg/dL (0.2-1.3); Blood Urea Nitrogen 22 mg/dL (7-17); Calcium 8.7 mg/dL (8.4-10.2); Carbon Dioxide 30 mmol/L (22-30); Chloride 102 mmol/L (98-107); Estimated CRCL calculation 34 ml/min; Estimated Glomerular Filt Rate 52; Glucose 125 mg/dL (65-110); Lipase 126 U/L (23-300); Potassium 3.6 mmol/L (3.4-5.0); Sodium 138 mmol/L (137-145)
[2023-12-31 22:12] LABS: Appearance Urine Cloudy (Clear); Bacteria Urine 4+ /hpf; Bilirubin Urine Negative (Negative); Blood Urine 1+ (Negative); Color Urine Yellow (Yellow); Glucose Urine UA Negative (Negative); Ketones Urine Negative (Negative); Leukocyte Esterase Ur 3+ LEU/UL (Negative); Nitrate Urine Positive (Negative); Non Pathogenic Casts 0-2; Protein Urine Negative (Negative); RBC Urine 0-2 /hpf (0-2); Specific Grav Ur 1.011 (1.001-1.035); Squamous Epithelial Cell Urine None Seen /hpf (Few); WBC Urine >100 /hpf (0-3)
[2023-12-31 22:14] LABS: Add Urine Microscopic? YES
[2023-12-31 22:43] LABS: Prothrombin Time 13.6 Seconds (11.1-14.7)
[2023-12-31 22:44] LABS: Partial Thromboplastin Time 38.8 Seconds (22.3-36.8)
--- NOTE | 2023-12-31 22:44 | ED.ABDPAIN ---
HPI - Abdominal Pain General Chief Complaint: Abdominal Pain <DARRYN Webb Filed: 01/01/24 01:14> Stated Complaint: abd pain <DARRYN Webb Last Filed: 01/01/24 01:14> Time Seen by Provider: 12/31/23 21:06 <DARRYN Webb Last Filed: 01/01/24 01:14> Source: patient and old records reviewed <DARRYN Webb Last Filed: 01/01/24 01:14> Mode of arrival: EMS <DARRYN Webb Filed: 01/01/24 01:14> Limitations: no limitations <DARRYN Webb Filed: 01/01/24 01:14> History of Present Illness HPI narrative: Patient is an 88 y/o female who presents to the ED via EMS with report of rectal bleeding. Patient is resident of [facility]. She reports she she developed some abdominal discomfort throughout her upper abdomen earlier today. She felt the need to have a bowel movement. She states she had to strain to pass the stool. She passed two large pieces of stool which she states were coated with bright red blood. She then felt a gush of blood come out of her. She then noticed bright red blood with wiping as well. Patient denies previous hx of GI bleed. She is not on any blood thinners. Reports nausea, denies vomiting. Denies fevers. Denies known hx of hemorrhoids. Denies significant dizziness/lightheadedness at this time, does note hx of frequent vertigo. <DARRYN Webb Last Filed: 01/01/24 01:14> Related Data Home Medications: Home Medications Medication Instructions Recorded Confirmed rosuvastatin 5 mg tablet 5 mg PO DAILY 07/10/19 12/27/23 mometasone-formoterol HFA 200 See Rx Instructions .Route .COMPLEX 11/11/21 12/27/23 mcg-5 mcg/actuation aerosol inhaler tramadol 50 mg tablet 50 mg PO BID 11/11/21 12/27/23 cyanocobalamin (vitamin B-12) 1,000 mcg subcut MONTHLY 08/15/22 12/27/23 1,000 mcg/mL injection solution fluticasone fur. 100 mcg-umeclid 1 inh inhalation DAILY 08/15/22 12/27/23 62.5 mcg-vilant 25 mcg inhalat.powder (Trelegy Ellipta) isosorbide mononitrate 30 mg 30 mg PO DAILY 08/15/22 12/27/23 tablet,extended release 24 hr fexofenadine 180 mg tablet 180 mg PO .NOON 01/20/23 12/27/23 furosemide 20 mg tablet 20 mg PO DAILY 01/20/23 12/27/23 metoprolol succinate 25 mg 25 mg PO DAILY 01/20/23 12/27/23 tablet,extended release 24 hr sertraline 50 mg tablet 50 mg PO DAILY 01/20/23 12/27/23 sodium chloride 0.65 % nasal spray 1 spray intranasal TID 01/20/23 12/27/23 aerosol (Saline Nasal) orqsqy-uddxogzo-kvqgrsk cap PO 12/27/23 12/27/23 36,000-114,000-180,000 unit capsule,delay rel (Creon) <Zoe Díaz PA-C - Last Filed: 01/01/24 01:14> Allergies/Adverse Reactions: Allergies Allergy/AdvReac Type Severity Reaction Status Date / Time adhesive tape Allergy Intermediate Rash Verified 12/27/23 11:10 alendronate sodium Allergy Unknown unknown Verified 12/27/23 11:10 amitriptyline Allergy Unknown unknown Verified 12/27/23 11:10 chlordiazepoxide Allergy Unknown unknown Verified 12/27/23 11:10 diazepam Allergy Unknown unknown Verified 12/27/23 11:10 diphenhydramine Allergy Unknown unknown Verified 12/27/23 11:10 flurbiprofen Allergy Unknown unknown Verified 12/27/23 11:10 hydrocodone Allergy Unknown unknown Verified 12/27/23 11:10 ibuprofen Allergy Unknown unknown Verified 12/27/23 11:10 lansoprazole Allergy Unknown unknown Verified 12/27/23 11:10 lorazepam Allergy Unknown unknown Verified 12/27/23 11:10 methotrexate Allergy Unknown unknown Verified 12/27/23 11:10 morphine Allergy Unknown unknown Verified 12/27/23 11:10 nizatidine Allergy Unknown unknown Verified 12/27/23 11:10 NSAIDS (Non-Steroidal Allergy Unknown unknown Verified 12/27/23 11:10 Anti-Inflamma Penicillins Allergy Unknown unknown Verified 12/27/23 11:10 perphenazine Allergy Unknown unknown Verified 12/27/23 11:10 propoxyphene Allergy Unknown unknown V
[2024-01-01] VITALS (8 sets, daily range): BP systolic 141–144; BP diastolic 72–75; PULSE 63–76; RESP 14–23; O2SAT 94–99
== END 2024-01-01 05:12 | disposition short-term general hospital (02) ==
PROVIDERS: Student in an Organized Health Care Education/Training Program; Emergency Provider Physician Assistant; PCP Nurse Practitioner Family
DX: K62.5 Hemorrhage of anus and rectum (principal); K57.30 Diverticulosis of large intestine without perforation or abscess without bleeding; N30.00 Acute cystitis without hematuria; I10 Essential (primary) hypertension; J45.909 Unspecified asthma, uncomplicated; J43.9 Emphysema, unspecified; J84.9 Interstitial pulmonary disease, unspecified; E78.5 Hyperlipidemia, unspecified; K86.1 Other chronic pancreatitis; G47.9 Sleep disorder, unspecified; M81.0 Age-related osteoporosis without current pathological fracture; M19.019 Primary osteoarthritis, unspecified shoulder; Z87.01 Personal history of pneumonia (recurrent); Z90.12 Acquired absence of left breast and nipple; Z90.49 Acquired absence of other specified parts of digestive tract; Z90.710 Acquired absence of both cervix and uterus; Z79.899 Other long term (current) drug therapy
CPT/HCPCS: 36415; 74177; 80053; 81001; 83690; 85025; 85610; 85730; 86850; 86900; 86901; 87077; 87086; 87088; 87186; 96365; 99285; J0696; Q9967